=== PATIENT | male | born 1960 | race Caucasian/White ===

== ENCOUNTER → 2017-09-25 | Outpatient (CLI) | payer BC, SELFPAY | PROVIDERS: Family Provider Nurse Practitioner Family; Visit Provider Nurse Practitioner Family | DX: R06.2 Wheezing (principal) | CPT/HCPCS: 94060; 94640 ==

== ENCOUNTER → 2017-12-25 13:44 | Outpatient (CLI) | payer BC, SELFPAY ==
[2017-12-25 14:10] LABS: Alanine Aminotransferase 29 U/L (12-78); Albumin Level 3.8 gm/dL (3.4-5.0); Alkaline Phosphatase 72 U/L (46-116); Aspartate Amino Transferase 12 U/L (15-37); Bilirubin,Direct 0.1 mg/dL (0.0-0.2); Bilirubin,Total 0.4 mg/dL (0.2-1.0); Cholesterol 120 mg/dL (140-200); HDL Cholesterol 40 mg/dL (27-67); LDL Cholesterol 57 mg/dL (0-130); Total Protein,Serum 7.7 gm/dL (6.4-8.2); Triglycerides 116 mg/dL (30-200); VLDL Cholesterol 23 mg/dL (0-40)
== END ==
PROVIDERS: Visit Provider Physician Assistant
DX: Z95.5 Presence of coronary angioplasty implant and graft (principal); I50.22 Chronic systolic (congestive) heart failure; R94.31 Abnormal electrocardiogram [ECG] [EKG]; Z95.810 Presence of automatic (implantable) cardiac defibrillator; I25.10 Atherosclerotic heart disease of native coronary artery without angina pectoris; I11.0 Hypertensive heart disease with heart failure; E78.4 Other hyperlipidemia
CPT/HCPCS: 36415; 80061; 80076

== ENCOUNTER → 2018-02-28 13:46 | Outpatient (CLI) | payer BC, SELFPAY | PROVIDERS: Family Provider Nurse Practitioner Family; PCP Physician Assistant; Visit Provider Internal Medicine | DX: I50.22 Chronic systolic (congestive) heart failure (principal); R94.31 Abnormal electrocardiogram [ECG] [EKG]; I25.10 Atherosclerotic heart disease of native coronary artery without angina pectoris; I11.0 Hypertensive heart disease with heart failure; E78.4 Other hyperlipidemia; E11.9 Type 2 diabetes mellitus without complications; R60.9 Edema, unspecified; R06.00 Dyspnea, unspecified; Z95.5 Presence of coronary angioplasty implant and graft; Z95.810 Presence of automatic (implantable) cardiac defibrillator | CPT/HCPCS: 93306 ==

== ENCOUNTER → 2018-03-07 10:16 | Outpatient (CLI) | payer BC, SELFPAY ==
[2018-03-07 10:50] LABS: Anion Gap 12.7 mEq/L (5-15); Blood Urea Nitrogen 19 mg/dL (7-18); Carbon Dioxide 28 mmol/L (21.0-32.0); Chloride 104 mmol/L (98-107); Creatinine,Serum 0.85 mg/dL (0.70-1.30); Estimated Glomerular Filt Rate 93 ml/min (>60); GFR (African American) 112 ML/MIN (>60); Glucose 179 mg/dL (74-106); Potassium 4.7 mmoL/L (3.5-5.1); Sodium 140 mmol/L (136-145)
== END ==
PROVIDERS: Family Provider Nurse Practitioner Family; PCP Physician Assistant; Visit Provider Internal Medicine
DX: I25.10 Atherosclerotic heart disease of native coronary artery without angina pectoris (principal); I11.9 Hypertensive heart disease without heart failure; R94.31 Abnormal electrocardiogram [ECG] [EKG]; I50.22 Chronic systolic (congestive) heart failure; E78.5 Hyperlipidemia, unspecified; R60.9 Edema, unspecified; R06.00 Dyspnea, unspecified; E11.9 Type 2 diabetes mellitus without complications; Z95.5 Presence of coronary angioplasty implant and graft; Z95.810 Presence of automatic (implantable) cardiac defibrillator
CPT/HCPCS: 36415; 80048

== ENCOUNTER → 2018-03-11 10:55 | Outpatient (CLI) | payer BC, SELFPAY ==
[2018-03-11 11:49] LABS: Anion Gap 13.9 mEq/L (5-15); Blood Urea Nitrogen 28 mg/dL (7-18); Calcium 9.3 mg/dL (8.5-10.1); Carbon Dioxide 25 mmol/L (21.0-32.0); Chloride 104 mmol/L (98-107); Creatinine,Serum 1.01 mg/dL (0.70-1.30); Estimated Glomerular Filt Rate 76 ml/min (>60); GFR (African American) 92 ML/MIN (>60); Glucose 170 mg/dL (74-106); Potassium 4.9 mmoL/L (3.5-5.1); Sodium 138 mmol/L (136-145)
== END ==
PROVIDERS: Visit Provider Physician Assistant
DX: I25.10 Atherosclerotic heart disease of native coronary artery without angina pectoris (principal)
CPT/HCPCS: 36415; 80048

== ENCOUNTER 2018-03-20 15:10 | Outpatient (CLI) | payer BC, SELFPAY ==
[2018-03-20 16:28] LABS: Prothrombin Time 42.2 seconds (9.4-11.8)
[2018-03-20 16:47] LABS: INR 4.27 (0.9-1.1)
[2018-03-21 10:54] LABS: PHA INR Fingerstick 4.2 (0.9-1.1)
== END 2018-03-21 10:56 | disposition home or self-care (01) ==
LOC: ACC 15:11
PROVIDERS: PCP Physician Assistant; Visit Provider Internal Medicine
DX: Z79.01 Long term (current) use of anticoagulants (principal); Z51.81 Encounter for therapeutic drug level monitoring; I82.409 Acute embolism and thrombosis of unspecified deep veins of unspecified lower extremity
CPT/HCPCS: 36415; 85610; G0463

== ENCOUNTER 2018-03-25 13:18 | Outpatient (CLI) | payer BC, SELFPAY ==
[2018-03-25 14:40] LABS: PHA INR Fingerstick 3.6 (0.9-1.1)
== END 2018-03-25 14:42 | disposition home or self-care (01) ==
LOC: ACC 13:20
PROVIDERS: PCP Physician Assistant; Visit Provider Internal Medicine
DX: Z79.01 Long term (current) use of anticoagulants (principal); Z51.81 Encounter for therapeutic drug level monitoring; I82.409 Acute embolism and thrombosis of unspecified deep veins of unspecified lower extremity
CPT/HCPCS: 85610; 99211; G0463

== ENCOUNTER 2018-03-27 15:36 | Outpatient (CLI) | payer BC, SELFPAY ==
[2018-03-27 15:56] LABS: PHA INR Fingerstick 3.8 (0.9-1.1)
== END 2018-03-27 15:59 | disposition home or self-care (01) ==
LOC: ACC 15:36
PROVIDERS: PCP Physician Assistant; Visit Provider Internal Medicine
DX: Z79.01 Long term (current) use of anticoagulants (principal); Z51.81 Encounter for therapeutic drug level monitoring; I82.409 Acute embolism and thrombosis of unspecified deep veins of unspecified lower extremity
CPT/HCPCS: 85610; 99211; G0463

== ENCOUNTER 2018-04-05 15:15 | Outpatient (CLI) | payer BC, SELFPAY ==
[2018-04-05 16:04] LABS: Prothrombin Time 44.8 seconds (9.4-11.8)
[2018-04-05 16:16] LABS: PHA INR Fingerstick 4.2 (0.9-1.1)
[2018-04-05 16:52] LABS: INR 4.55 (0.9-1.1)
== END 2018-04-05 16:19 | disposition home or self-care (01) ==
LOC: ACC 15:16
PROVIDERS: Family Provider Nurse Practitioner Family; PCP Physician Assistant; Visit Provider Internal Medicine
DX: Z79.01 Long term (current) use of anticoagulants (principal); Z51.81 Encounter for therapeutic drug level monitoring; I82.409 Acute embolism and thrombosis of unspecified deep veins of unspecified lower extremity
CPT/HCPCS: 36415; 85610; 99211; G0463

== ENCOUNTER 2018-04-17 15:01 | Outpatient (CLI) | payer BC, SELFPAY ==
[2018-04-17 16:04] LABS: PHA INR Fingerstick 2.6 (0.9-1.1)
== END 2018-04-17 16:14 | disposition home or self-care (01) ==
LOC: ACC 15:03
PROVIDERS: PCP Physician Assistant; Visit Provider Internal Medicine
DX: Z79.01 Long term (current) use of anticoagulants (principal); Z51.81 Encounter for therapeutic drug level monitoring; I82.409 Acute embolism and thrombosis of unspecified deep veins of unspecified lower extremity
CPT/HCPCS: 85610; 99211; G0463

== ENCOUNTER 2018-04-29 14:46 | Outpatient (CLI) | payer BC, SELFPAY | END 2018-04-29 15:41 | disposition home or self-care (01) | LOC: ACC 14:47 | PROVIDERS: PCP Physician Assistant; Visit Provider Internal Medicine | DX: Z79.01 Long term (current) use of anticoagulants (principal); Z51.81 Encounter for therapeutic drug level monitoring | CPT/HCPCS: 85610; 99211; G0463 ==

== ENCOUNTER → 2018-05-03 13:21 | Outpatient (CLI) | payer BC, SELFPAY ==
[2018-05-03 14:19] LABS: Anion Gap 17.2 mEq/L (5-15); Blood Urea Nitrogen 23 mg/dL (7-18); Calcium 9.1 mg/dL (8.5-10.1); Carbon Dioxide 24 mmol/L (21.0-32.0); Chloride 104 mmol/L (98-107); Creatinine,Serum 1.09 mg/dL (0.70-1.30); Estimated Glomerular Filt Rate 70 ml/min (>60); GFR (African American) 84 ML/MIN (>60); Glucose 170 mg/dL (74-106); Potassium 4.2 mmoL/L (3.5-5.1); Sodium 141 mmol/L (136-145)
== END ==
PROVIDERS: Family Provider Nurse Practitioner Family; PCP Physician Assistant; Visit Provider Urology
DX: Z79.01 Long term (current) use of anticoagulants (principal); Z51.81 Encounter for therapeutic drug level monitoring
CPT/HCPCS: 36415; 80048

== ENCOUNTER 2018-05-30 15:03 | Outpatient (CLI) | payer BC, SELFPAY ==
[2018-05-30 15:57] LABS: PHA INR Fingerstick 2.6 (0.9-1.1)
== END 2018-05-30 15:59 | disposition home or self-care (01) ==
LOC: ACC 15:04
PROVIDERS: PCP Physician Assistant; Visit Provider Internal Medicine
DX: Z79.01 Long term (current) use of anticoagulants (principal); Z51.81 Encounter for therapeutic drug level monitoring
CPT/HCPCS: 85610; 99211; G0463

== ENCOUNTER → 2018-08-02 15:47 | Outpatient (CLI) | payer BC, SELFPAY | PROVIDERS: PCP Internal Medicine; Visit Provider Internal Medicine | DX: I82.409 Acute embolism and thrombosis of unspecified deep veins of unspecified lower extremity (principal); I25.5 Ischemic cardiomyopathy ==

== ENCOUNTER → 2018-08-05 14:12 | Outpatient (CLI) | payer BC, SELFPAY ==
[2018-08-05 17:09] LABS: Anion Gap 12.3 mEq/L (5-15); Blood Urea Nitrogen 21 mg/dL (7-18); Calcium 8.9 mg/dL (8.5-10.1); Carbon Dioxide 29 mmol/L (21.0-32.0); Chloride 106 mmol/L (98-107); Creatinine,Serum 0.84 mg/dL (0.70-1.30); Estimated Glomerular Filt Rate 94 ml/min (>60); GFR (African American) 114 ML/MIN (>60); Glucose 181 mg/dL (74-106); Potassium 4.3 mmoL/L (3.5-5.1); Sodium 143 mmol/L (136-145)
== END ==
PROVIDERS: Visit Provider Internal Medicine
DX: E78.5 Hyperlipidemia, unspecified (principal)
CPT/HCPCS: 36415; 80048

== ENCOUNTER 2018-08-06 14:43 | Outpatient (CLI) | payer BC, SELFPAY ==
[2018-08-06 15:36] LABS: PHA INR Fingerstick 3.6 (0.9-1.1)
== END 2018-08-06 15:38 | disposition home or self-care (01) ==
LOC: ACC 14:44
PROVIDERS: PCP Physician Assistant; Visit Provider Internal Medicine
DX: Z51.81 Encounter for therapeutic drug level monitoring (principal); Z79.01 Long term (current) use of anticoagulants; I51.3 Intracardiac thrombosis, not elsewhere classified
CPT/HCPCS: 85610; 99211; G0463

== ENCOUNTER 2018-08-16 12:15 | Outpatient (CLI) | payer BC, SELFPAY ==
[2018-08-16 14:54] LABS: PHA INR Fingerstick 3.1 (0.9-1.1)
== END 2018-08-16 16:02 | disposition home or self-care (01) ==
LOC: ACC 12:15
PROVIDERS: PCP Physician Assistant; Visit Provider Internal Medicine
DX: Z51.81 Encounter for therapeutic drug level monitoring (principal); Z79.01 Long term (current) use of anticoagulants; I51.3 Intracardiac thrombosis, not elsewhere classified
CPT/HCPCS: 85610; 99211; G0463

== ENCOUNTER 2018-09-13 15:46 | Outpatient (CLI) | payer BC, SELFPAY ==
[2018-09-13 16:09] LABS: PHA INR Fingerstick 2.5 (0.9-1.1)
== END 2018-09-13 16:13 | disposition home or self-care (01) ==
LOC: ACC 15:46
PROVIDERS: PCP Physician Assistant; Visit Provider Internal Medicine
DX: Z51.81 Encounter for therapeutic drug level monitoring (principal); Z79.01 Long term (current) use of anticoagulants; I51.3 Intracardiac thrombosis, not elsewhere classified
CPT/HCPCS: 85610; 99211; G0463

== ENCOUNTER 2018-10-14 13:00 | Outpatient (CLI) | payer BC, SELFPAY ==
[2018-10-14 14:14] LABS: Prothrombin Time 89.8 seconds (9.4-11.8)
[2018-10-14 14:47] LABS: PHA INR Fingerstick 5.9 (0.9-1.1)
== END 2018-10-14 15:03 | disposition home or self-care (01) ==
LOC: ACC 13:01
PROVIDERS: PCP Physician Assistant; Visit Provider Internal Medicine
DX: Z51.81 Encounter for therapeutic drug level monitoring (principal); Z79.01 Long term (current) use of anticoagulants; I51.3 Intracardiac thrombosis, not elsewhere classified
CPT/HCPCS: 36415; 85610; 99211; G0463

== ENCOUNTER 2018-10-16 13:42 | Outpatient (CLI) | payer BC, SELFPAY ==
[2018-10-16 14:58] LABS: INR 8.78 (0.9-1.1); Prothrombin Time 84.9 seconds (9.4-11.8)
[2018-10-18 09:12] LABS: PHA INR Fingerstick 5.4 (0.9-1.1)
== END 2018-10-16 17:00 | disposition home or self-care (01) ==
LOC: ACC 13:43
PROVIDERS: PCP Physician Assistant; Visit Provider Internal Medicine
DX: Z51.81 Encounter for therapeutic drug level monitoring (principal); Z79.01 Long term (current) use of anticoagulants; I51.3 Intracardiac thrombosis, not elsewhere classified
CPT/HCPCS: 36415; 85610; 99211; G0463

== ENCOUNTER 2018-10-21 14:28 | Outpatient (CLI) | payer BC, SELFPAY ==
[2018-10-21 15:04] LABS: PHA INR Fingerstick 1.5 (0.9-1.1)
== END 2018-10-21 15:06 | disposition home or self-care (01) ==
LOC: ACC 14:28
PROVIDERS: PCP Physician Assistant; Visit Provider Internal Medicine Cardiovascular Disease
DX: Z51.81 Encounter for therapeutic drug level monitoring (principal); Z79.01 Long term (current) use of anticoagulants; I51.3 Intracardiac thrombosis, not elsewhere classified
CPT/HCPCS: 85610; 99211; G0463

== ENCOUNTER → 2018-10-24 09:41 | Outpatient (CLI) | payer BC, SELFPAY ==
--- NOTE | 2018-10-24 09:41 | CA_ITS ---
PROCEDURE: 2-D M-mode and color Doppler study INDICATIONS FOR THE TEST: Chest pain COPD Heart Murmur Tobacco SmokingEX Palpitations Fatigue Syncope Edema+ Hypertension+Diabetes Mellitus+ Rheumatic Fever SOB TESFAYE+Obesity+Hyperlipidemia+ Family History HD+ Additional History Cardiac stents PATIENT INFORMATION HEIGHT: 67 WEIGHT: 220 GENDER: Male B/P: 125/82 2-D/M-MODE INTERPRETATION: 2-D MEASUREMENTS OBSERVED VALUES IN CMS Right Ventricular Dimension (RVDd) 1.6 Interventricular Septum (Thickness)(IVsd) 0.9 Left Ventricular Internal Dimensions(LVIDd) 4.8 Left Ventricular Posterior Wall (Thickness)(LVPWd) 0.9 Aortic Root 2.9 Aortic Cusp Separation 2.0 Left Atrial Dimensions (LAD) 3.2 2D 1. Technically difficult study because of the patient's factor and poor acoustic windows, Definity contrast was utilized to delineate endocardial subsequent 2. Left atrium is mildly enlarged, left ventricle is normal size, mild concentric left ventricular hypertrophy, visually estimated ejection fraction 40%, there is moderate hypokinesis involving mid to distal septum, anteroapical and apical wall. 3. The right atrium and right ventricle are normal size and contractility. 4.. Aortic valve is minimally thickened and fibrosed. 5. The mitral and tricuspid valve are grossly normal. 6. The pulmonic valve is poorly visualized. 7. No significant pericardial effusion noted. DOPPLER INTERROGATION: Doppler interrogation of the aortic, mitral and tricuspid valvular presence of mild mitral and tricuspid regurgitation, tricuspid regurgitation jet velocity is inadequate for calculation of the right ventricular systolic pressure, grade 1 diastolic dysfunction seen with tissue Doppler evidence of raised left atrial pressure. CONCLUSION: 1. Technically difficult study because of the patient's factor and poor acoustic windows. Definity contrast was placed to delineate endocardial surfaces. 2. Mildly enlarged left atrium, normal left ventricular size, mild concentric left ventricular hypertrophy, visually estimated ejection fraction 40%, with segmental wall motion abnormality described above. 3. Mild mitral and tricuspid regurgitation 4. No significant pericardial effusion noted.
== END ==
PROVIDERS: PCP Physician Assistant; Visit Provider Internal Medicine Cardiovascular Disease
DX: I51.3 Intracardiac thrombosis, not elsewhere classified (principal); I25.10 Atherosclerotic heart disease of native coronary artery without angina pectoris; E11.9 Type 2 diabetes mellitus without complications; E78.5 Hyperlipidemia, unspecified; I11.9 Hypertensive heart disease without heart failure; I50.22 Chronic systolic (congestive) heart failure; R94.31 Abnormal electrocardiogram [ECG] [EKG]; Z95.5 Presence of coronary angioplasty implant and graft; Z95.810 Presence of automatic (implantable) cardiac defibrillator
CPT/HCPCS: 93306

== ENCOUNTER → 2019-01-02 11:43 | Outpatient (CLI) | payer BC, SELFPAY ==
[2019-01-02 14:39] LABS: Prostate Specific Ag, Diagnost 0.38 ng/mL (0.0-4.0)
== END ==
PROVIDERS: Visit Provider Urology
DX: R97.20 Elevated prostate specific antigen [PSA] (principal)
CPT/HCPCS: 36415; 84153

== ENCOUNTER → 2019-05-14 14:54 | Outpatient (CLI) | payer BC, SELFPAY | PROVIDERS: Visit Provider Urology | DX: R05 Cough (principal) | CPT/HCPCS: 87275; 87276 ==

== ENCOUNTER 2019-10-03 14:12 | Emergency (ER) | payer BC, SELFPAY ==
[2019-10-03 14:13] VITALS: BP 135/79; PULSE 89; RESP 18; TEMP 36.7; O2SAT 96; BMI 34.1
--- NOTE | 2019-10-03 14:24 | CT_ITS ---
PROCEDURE: CT ABDOMEN PELVIS W CON CLINICAL INDICATION: abd pain abd pain vomiting and diarrhea COMPARISON: ABDPELWO CT abdomen pelvis wo con from 02/26/2019 TECHNIQUE: IV Contrast: 75ML OPTIRAY 350 Oral Contrast 20ml Gastroview Axial images obtained with sagittal and coronal reformats. All CT scans at the facility use one or more dose reduction, viz: automated exposure control, ma/kV adjustment per patient size (including targeted exams where dose is matched to indication, i.e. head), or iterative reconstruction technique. FINDINGS: Lower thorax: Cardiac size is normal. There is coronary artery calcification. The cardiac pacemaker electrodes noted. The lower lung porter are clear and there is no pleural fluid. ABDOMEN: Liver: No masses or biliary dilatation. Gallbladder: Nondistended. No radio opaque stones. Pancreas: No masses or peripancreatic fluid collections. Spleen: unremarkable Adrenals: unremarkable Kidneys/ureters: The kidneys are normal in size and show symmetrical function both appearing normal. PELVIS: Reproductive: unremarkable, the prostate is mildly enlarged. Bladder: Nondistended. No obvious stones or masses. Appendix: The appendix is normal ABDOMEN & PELVIS: Stomach bowel: Nondistended. No obvious mass or thickening. There is a small sliding hiatal hernia. The small bowel appears normal. There is moderate scattered stool and gas in the ascending and transverse colon and splenic flexure. The lower descending and sigmoid colon are decompressed. Peritoneum: No abnormal fluid collections. No obvious inflammatory changes. No free air. Lymph nodes: No enlarged lymph nodes apparent. Vasculature: There is mild diffuse arteriosclerotic calcification of the infrarenal aorta but there is no aneurysm. Bones: There are mild degenerate changes lower thoracic spine. IMPRESSION: No acute abdominal or pelvic pathology identified Dictated by: Dr. Kennedy Hays MD 10/04/2019 13:[address] Kennedy Hays MD in [place] 10/04/2019 13:35
[2019-10-03 14:39] LABS: Basophils % 0.3 % (0.1-2.0); Eosinophils # 0.3 K/mm3 (0.0-0.4); Eosinophils % 2.1 % (0.1-12.0); Hematocrit 37.6 % (42.0-52.0); Hemoglobin 13.9 g/dL (14.1-18.0); Lymphocytes # 0.9 K/mm3 (0.7-4.5); Mean Corpuscular HGB Conc 36.9 g/dL (31.8-35.4); Mean Corpuscular Hemoglobin 35.3 pg (27.0-31.2); Mean Corpuscular Volume 95.7 fl (80-94); Mean Platelet Volume 7.7 fl (7.4-10.4); Monocytes # 0.7 K/mm3 (0.1-1.0); Monocytes % 5.5 % (1.7-9.3); Neutrophils # 10.2 K/mm3 (1.8-7.8); Platelet Count 197 K/mm3 (142-424); Red Blood Count 3.93 M/mm3 (4.60-6.20)
[2019-10-03 14:41] LABS: MANUAL DIFFERENTIAL MANUAL DIFFERENTIAL (MANUAL DIFF)
[2019-10-03 14:47] LABS: Adenovirus F 40/41, stool Not Detected (NotDetected); Astrovirus Not Detected (NotDetected); Campylobacter Not Detected (NotDetected); Clostridium Difficile A/B, PCR Not Detected (NotDetected); Cryptosporidium Not Detected (NotDetected); Cyclospora Cayetanesis Not Detected (NotDetected); Entamoeba histolytica Not Detected (NotDetected); Enteroaggregative E coli Not Detected (NotDetected); Enteropathogenic E coli Not Detected (NotDetected); Enterotoxigenic E coli Not Detected (NotDetected); Giardia lamblia Not Detected (NotDetected); Microscopic, Urine URINE MICROSCOPIC (MICROSCOPIC); Plesimonas Shigalloides, PCR Not Detected (NotDetected); Rotavirus A Not Detected (NotDetected); Salmonella, PCR Not Detected (NotDetected); Sapovirus Not Detected (NotDetected); Shiga-like toxin E coli Not Detected (NotDetected); Shigella Enterovasive E coli Not Detected (NotDetected); Vibrio Cholerae Not Detected (NotDetected); Vibrio, PCR Not Detected (NotDetected); Yersinia Entercolitica, PCR Not Detected (NotDetected)
--- NOTE | 2019-10-03 14:47 | PC.NURSE ---
URINE AND STOOL SENT TO THE LAB
[2019-10-03 14:49] LABS: Appearance,Urine CLEAR (Clear); Bilirubin,Urine Negative (Negative); Blood, Urine Negative (Negative); Color,Urine YELLOW (Yellow); Glucose,Urine (UA) 2+ (Negative); Ketones,Urine TRACE (Negative); Leukocyte Esterase,Urine Negative (Negative); Nitrate,Urine Negative (Negative); Protein,Urine TRACE (Negative); Specific Gravity, Urine 1.025 (1.005-1.030); Urobilinogen,Urine 0.2 EU/dl (0.2)
[2019-10-03 14:53] LABS: Alanine Aminotransferase 28 U/L (12-78); Albumin Level 3.9 gm/dL (3.4-5.0); Alkaline Phosphatase 70 U/L (46-116); Amylase 38 U/L (25-115); Aspartate Amino Transferase 16 U/L (15-37); Bilirubin,Total 0.9 mg/dL (0.2-1.0); Blood Urea Nitrogen 26 mg/dL (7-18); Calcium 8.6 mg/dL (8.5-10.1); Carbon Dioxide 24 mmol/L (21.0-32.0); Chloride 104 mmol/L (98-107); Creatinine Clearance Estimated 125 mL/min (50-200); Estimated Glomerular Filt Rate 87 ml/min (>60); GFR (African American) 105 ML/MIN (>60); Globulin 3.8 gm/dl (1.3-3.2); Glucose 211 mg/dL (74-106); Sodium 141 mmol/L (136-145); Total Protein,Serum 7.7 gm/dL (6.4-8.2)
[2019-10-03 14:55] LABS: Eosinophils % 3 % (0-3); Lymphocytes % 8 % (10-50); Monocytes % 5 % (2-9); Neutrophils % 84 % (42-76); Platelet Estimate Normal; RBC Morphology Normal; Total Cells Counted 100
[2019-10-03 14:59] LABS: Squamous Epithelial Cell,Urine Occasional #/hpf (0-5); WBC,Urine Occasional #/hpf (0-3)
[2019-10-03 15:00] LABS: Amorphous Sediment,Urine 1+ /lpf
[2019-10-03 15:36] LABS: Lipase 47 u/L (73-393)
--- NOTE | 2019-10-03 15:44 | PC.NURSE ---
Pt to rad.
--- NOTE | 2019-10-03 15:49 | HMH.EDABDPAI ---
ED Disposition Clinical Impression: Gastroenteritis due to norovirus Disposition: Home, Self-Care Condition on Discharge: Fair Instructions: DI for Norovirus Infection Additional Instructions: Follow-up with your primary care provider on Sunday for reevaluation if not better. Return to the emergency department immediately if symptoms are worse. Prescriptions: Ondansetron [Zofran 4mg ODT] 4 mg PO Q4H PRN #10 tab.rapdis PRN Reason: Nausea Prescription Printed Referrals: Riley Bland MD [Primary Care Provider] - Time of Disposition: 17:22 - Critical Care Critical Care Time: No Attestation: On 10/03/19, the high probability of a clinically significant, sudden or life threatening deterioration of the following system(s) required my full and direct attention, intervention and personal management. The time I documented below is in addition to time spent performing reported procedures but includes the following listed in this critical care notation. Medical Decision Making - Medical Records Medical records reviewed: Yes: I reviewed the patient's medical records. - Gaurav Inquiry Pt receiving controlled substance: No Vital Signs: 10/03/19 14:13 Temperature 98.1 F Temperature Source Oral Pulse Rate [Right] 89 Respiratory Rate 18 Blood Pressure [Right Arm] 135/79 Blood Pressure Mean [Right Arm] 97 02 Sat by Pulse Oximetry 96 - Lab Data Lab results reviewed: Yes: I reviewed the patient's lab results. Lab Results 10/03/19 14:25: WBC 12.0 H, RBC 3.93 L, Hgb 13.9 L, Hct 37.6 L, MCV 95.7 H, MCH 35.3 H, MCHC 36.9 H, RDW 15.0, Plt Count 197, MPV 7.7, Neut % (Auto) 85.0 H, Lymph % (Auto) 7.0 L, [place] % (Auto) 5.5, Eos % (Auto) 2.1, Baso % (Auto) 0.3, Neut # (Auto) 10.2 H, Lymph # (Auto) 0.9, [place] # (Auto) 0.7, Eos # (Auto) 0.3, Baso # (Auto) 0.0, Total Counted 100, Neutrophils % (Manual) 84 H, Lymphocytes % (Manual) 8 L, Monocytes % (Manual) 5, Eosinophils % (Manual) 3, Platelet Estimate Normal, RBC Morphology Normal 12/27/19 14:25: Sodium 141, Potassium 4.0, Chloride 104, Carbon Dioxide 24, Anion Gap 17.0 H, BUN 26 H, Creatinine 0.90, Estimated Creat Clear 125, Estimated GFR 87, Est GFR ( Amer) 105, Glucose 211 H, Calcium 8.6, Total Bilirubin 0.9, AST 16, ALT 28, Alkaline Phosphatase 70, Total Protein 7.7, Albumin 3.9, Globulin 3.8 H, Albumin/Globulin Ratio 1.0 L, Amylase 38 10/03/19 14:25: Lipase 47 L 10/03/19 14:42: Urine Color Yellow, Urine Appearance Clear, Urine pH 6.0, Ur Specific [place] 1.025, Urine Protein Trace, Urine Glucose (UA) 2+, Urine Ketones Trace, Urine Blood Negative, Urine Nitrate Negative, Urine Bilirubin Negative, Urine Urobilinogen 0.2, Ur Leukocyte Esterase Negative, Urine RBC None, Urine WBC Occasional, Ur Squamous Epith Cells Occasional, Amorphous Sediment 1+, Urine Bacteria None 10/03/19 14:42: Stl Aeromonas (PCR) Not detected, Stl C. cayetanensis PCR Not detected, Stool Rotavirus (PCR) Not detected, Stl Adenov F 40/41 PCR Not detected, Stool Astrovirus (PCR) Not detected, Stool Campylobacter PCR Not detected, Stl C.difficile Tox PCR Not detected, Stool Cryptosporidium PCR Not detected, Stl E.coli Shiga Tox PCR Not detected, Stool E coli O157 PCR Not detected, Stl Enterotoxigenic E PCR Not detected, Stool EPEC (PCR) Not detected, Stool EAEC (PCR) Not detected, Stl E. histolytica PCR Not detected, Stool Giardia Lamblia PCR Not detected, Stool Salmonella PCR Not detected, Stool Sapovirus (PCR) Not detected, Stl P. shigelloides PCR Not detected, Stl Shigella/EIEC PCR Not detected, St Y.enterocolitica PCR Not detected, Stool Vibrio (PCR) Not detected, Stl Vibrio cholerae PCR Not detected, Stl Norovirus GI/GII PCR Detected A Result diagrams: 10/03/19 14:25 10/03/19 14:25 Orders (Tests/Meds): ED MEDICATIONS Discontinued Medications Generic Name Dose Route Start Last Admin Trade Name Freq PRN Reason Stop Dose Admin Sodium Chloride 1,000 mls @ 999 mls/hr 10/03/19 14:30 10/03/19 1
--- NOTE | 2019-10-03 16:05 | PC.NURSE ---
Pt returned from rad.
[2019-10-03 17:11] LABS: Norovirus Detected (NotDetected)
[2019-10-03 17:26] VITALS: BP 120/78; PULSE 78; RESP 18; TEMP 36.7; O2SAT 98
== END 2019-10-03 17:28 | disposition home or self-care (01) ==
PROVIDERS: Emergency Provider Emergency Medicine; PCP Emergency Medicine
DX: A08.11 Acute gastroenteropathy due to Norwalk agent (principal); E11.9 Type 2 diabetes mellitus without complications; K21.9 Gastro-esophageal reflux disease without esophagitis; E78.5 Hyperlipidemia, unspecified; I25.10 Atherosclerotic heart disease of native coronary artery without angina pectoris; I10 Essential (primary) hypertension; Z95.0 Presence of cardiac pacemaker; Z79.899 Other long term (current) drug therapy
CPT/HCPCS: 74177; 80053; 81001; 82150; 83690; 85007; 85025; 87506; 96365; 99283; Q9967

== ENCOUNTER 2020-04-18 17:13 | Emergency (ER) | payer BC, SELFPAY ==
[2020-04-18 17:13] VITALS: BP 187/89; PULSE 83; RESP 19; TEMP 36.6; O2SAT 100; BMI 35.5
--- NOTE | 2020-04-18 17:24 | XR_ITS ---
PROCEDURE: XR RIBS RT MIN 3V W CXR1V CLINICAL INDICATION: FALL Pain following injury, right-sided rib pain COMPARISON: Chest from 05/10/2019 Chest from 05/12/2019 XR CHEST 2V from 10/26/2019 FINDINGS: Multiple views of the right ribs show no obvious fracture. No lytic or blastic change. Consider follow-up in 7-[address] with 3D reformats if pain persists Frontal view of the chest shows no acute finding. Bipolar pacemaker is present from left subclavian approach IMPRESSION: No acute findings. Dictated by: William Overton MD 04/19/2020 07:41 Electronically signed by William Overton MD in [place] 04/19/2020 07:41
--- NOTE | 2020-04-18 17:52 | HMH.EDUTC ---
[facility] [place] Disposition Clinical Impression: Contusion of rib on right side Qualifiers: Encounter type: initial encounter Qualified Code(s): S20.211A - Contusion of right front wall of thorax, initial encounter Disposition: Home, Self-Care Condition on Discharge: Good Instructions: DI for Rib Contusion, Ibuprofen, Acetaminophen (Alternative Therapy) Additional Instructions: *Ibuprofen yasmin 6 hours with meal as needed for pain/inflammation if your doctor has told you that you can take it *Not additional anti-inflammatory like motrin, aleve, advil with the above amount of ibuprofen. You can still take Tylenol every 4 hours as needed if you need something else for pain *Ice 20 minutes every 2 hours for the first 48 hours after the initial injury followed by moist heat every 20 minutes 3-4 times a day to affected area Over the counter Lidocaine patches applied to the area may help with pain and discomfort Also muscle rubs like biofreeze may help with pain and discomfort, Use a small pillow held on the area when you cough or sneeze may help with pain *Keep this area active, no movement leads to more stiffness, However take it easy and avoid heavy lifting pushing or pulling *Follow up with you family doctor if no improvement for further treatment Straight to ER if any life threatening symptoms Referrals: Riley Bland MD [Primary Care Provider] - As needed Time of Disposition: 18:05 Medical Decision Making - Gaurav Inquiry Pt receiving controlled substance: No Gaurav was queried for this patient: No Vital Signs: 04/18/20 17:13 Temperature 97.8 F Temperature Source Oral Pulse Rate [Radial] 83 Respiratory Rate 19 Blood Pressure [Right Arm] 187/89 H Blood Pressure Mean [Right Arm] 121 Blood Pressure Source [Right Arm] Automatic Cuff Blood Pressure Position [Right Arm] Sitting 02 Sat by Pulse Oximetry 100 Oxygen Delivery Method Room Air Orders (Tests/Meds): ORDERS Category Date Time Status XR ribs RT min 3V w CXR1V Stat Exams 04/18/20 17:24 Taken - Radiology Data #1 Image(s): Chest, Other (ribs (right)) Image Reviewed: Yes I reviewed the patient's radiology image w/the ED provider Preliminary Findings: Normal/NAD, No Fracture Seen [facility] [place] HPI - General Stated complaint: AO [id number] @2200 fell & injured ribs Time Seen by Provider: 04/18/20 17:52 Mode of Arrival: Ambulatory Source of Information: Patient Limitations: No Limitations Description of Symptoms (Recalled from Triage Doc. by RN): fell in shower 2 days ago, right rib pain HEENT Symptoms (Recalled from RN notes): No Resp Symptoms (Recalled from RN notes): No Skin Symptoms (Recalled from RN notes): No MS Symptoms (Recalled from RN notes): Yes Functional Status (Recalled from RN notes): wnl - History of Present Illness Provider Complaint: Patient states that he was in the shower about 2 days ago when he slipped and fell and landed on his right side on the side of the bathtub States that ever since he has been having pain in his right ribs when he takes a deep breath, coughs or sneezes States that he wasnt sure if he may have broke a rib or not so he come in to get checked Denies any other injury - Related Data Home Medications Medication Instructions Recorded Confirmed aspirin 81 mg tablet,delayed 81 mg PO DAILY 02/04/19 03/02/20 release Furosemide [Furosemide 40MG tAB] 40 mg PO DAILY 02/26/19 03/02/20 Atorvastatin Calcium [Lipitor 40mg 40 mg PO DAILY 05/12/19 03/02/20 Tablet] Cetirizine HCl 10 mg PO DAILY 05/12/19 03/02/20 Previous Rx's Medication Instructions Recorded fluticasone furoate 100 1 inh INHALATION DAILY #60 each 05/16/19 mcg-vilanterol 25 mcg/dose inhalation powder carvedilol 25 mg tablet 25 mg PO BID #180 tab 06/20/19 spironolactone 100 mg tablet 100 mg PO QAM #90 tab 09/01/19 losartan 50 mg tablet 50 mg PO DAILY #30 tab 11/18/19 ondansetron HCl 8 mg tablet 8 mg PO Q12H #30 tab 12/31/19 nitroglycerin 400 mcg/spr
[2020-04-18 18:08] VITALS: BP 187/89; PULSE 83; RESP 19; TEMP 36.6; O2SAT 100
== END 2020-04-18 18:09 | disposition home or self-care (01) ==
PROVIDERS: Emergency Provider Nurse Practitioner; PCP Emergency Medicine
DX: S20.211A Contusion of right front wall of thorax, initial encounter (principal); W18.2XXA Fall in (into) shower or empty bathtub, initial encounter; Y92.012 Bathroom of single-family (private) house as the place of occurrence of the external cause; I25.10 Atherosclerotic heart disease of native coronary artery without angina pectoris; E11.9 Type 2 diabetes mellitus without complications; K21.9 Gastro-esophageal reflux disease without esophagitis; I10 Essential (primary) hypertension; E78.5 Hyperlipidemia, unspecified; Z95.0 Presence of cardiac pacemaker; Z88.8 Allergy status to other drugs, medicaments and biological substances
CPT/HCPCS: 71101; 99201

== ENCOUNTER → 2020-05-24 08:16 | Outpatient (CLI) | payer BC, SELFPAY ==
--- NOTE | 2020-05-24 10:05 | XR_ITS ---
PROCEDURE: XR RIBS RT 2V CLINICAL INDICATION: Rib injury Posttraumatic pain COMPARISON: CR XR RIBS RT MIN 3V W CXR1V from 04/18/[address] CHEST WO CON from 05/24/2020 FINDINGS: There is a minimally offset fracture involving the lateral aspect of the right 7th rib with some underlying pleural thickening. Frontal view of the chest shows no evidence of pneumothorax. Bipolar pacemaker is present from left subclavian approach with mild cardiomegaly. IMPRESSION: Healing fracture right 7th rib Dictated by: William Overton MD 05/24/2020 13:18 William Overton MD in [place] 05/24/2020 13:18
--- NOTE | 2020-05-24 10:05 | CT_ITS ---
PROCEDURE: CT CHEST WO CON CLINICAL INDICATION: right side rib pain after fall Right-sided chest and rib pain after a fall COMPARISON: CT CT ABDOMEN PELVIS W CON from 05/24/2020 TECHNIQUE: Axial images obtained with sagittal and coronal reformats. All CT scans at the facility use one or more dose reduction, viz: automated exposure control, ma/kV adjustment per patient size (including targeted exams where dose is matched to indication, i.e. head), or iterative reconstruction technique. FINDINGS: Pacemaker artifact is present. No mediastinal or hilar mass or adenopathy. There are few small calcified mediastinal lymph nodes. Coronary artery calcification and/or stents noted. There is normal heart size without obvious pericardial effusion. There is some mild paraseptal emphysematous changes in the right apex. There is mild bronchial thickening. There is evidence of old granulomatous disease. No lobar consolidation or collapse is evident. There is a healing nondisplaced right 7th rib fracture laterally. No the rib fractures are apparent. There is no evidence of pneumothorax or pleural effusion. IMPRESSION: Nondisplaced healing right 7th rib fracture laterally Dictated by: William Overton MD 05/25/2020 10:25 William Overton MD in [place] 05/25/2020 10:25
--- NOTE | 2020-05-24 10:05 | CT_ITS ---
PROCEDURE: CT ABDOMEN PELVIS W CON CLINICAL INDICATION: fall Right-sided pain following injury COMPARISON: CT CT ABDOMEN PELVIS W CON from 10/03/[address] CHEST WO CON from 05/24/2020 TECHNIQUE: IV Contrast: 75ML OPTIRAY 350 Oral Contrast None Axial images obtained with sagittal and coronal reformats. All CT scans at the facility use one or more dose reduction, viz: automated exposure control, ma/kV adjustment per patient size (including targeted exams where dose is matched to indication, i.e. head), or iterative reconstruction technique. FINDINGS: There is a nondisplaced healing right 7th rib fracture. The liver, spleen, adrenal glands, pancreas, and kidneys have an unremarkable appearance. Unremarkable appearing gallbladder. No renal or ureteral calculi. No hydronephrosis. Unremarkable appearing appendix. Prostate is enlarged at 5.7 cm. There are few scattered colonic diverticula but no evidence of diverticulitis. Incidental note made of gynecomastia IMPRESSION: Healing right 7th rib fracture. No acute abdominal or pelvic findings. Enlarged prostate Dictated by: William Overton MD 05/25/2020 10:29 William Overton MD in [place] 05/25/2020 10:29
[2020-05-24 10:56] LABS: Alanine Aminotransferase 25 U/L (12-78); Albumin Level 4.1 g/dl (3.5-5.0); Albumin/Globulin Ratio 1.5 (1.1-1.8); Alkaline Phosphatase 109 U/L (38-126); Anion Gap 14.4 mEq/L (5-15); Aspartate Amino Transferase 26 U/L (17-59); Bilirubin,Total 0.7 mg/dl (0.2-1.3); Blood Urea Nitrogen 15 mg/dl (9-20); Calcium 9.3 mg/dl (8.4-10.2); Carbon Dioxide 28 mmol/L (22.0-30.0); Chloride 103 mmol/L (98-107); Estimated Glomerular Filt Rate 86 ml/min (>60); GFR (African American) 105 ML/MIN (>60); Globulin 2.8 g/dL (1.3-3.2); Glucose 277 mg/dl (74-100); Potassium 4.4 mmoL/L (3.5-5.1); Sodium 141 mmol/L (136-145); Total Protein,Serum 6.9 g/dl (6.3-8.2)
[2020-05-24 14:05] LABS: Alanine Aminotransferase 25 U/L (12-78); Alkaline Phosphatase 114 U/L (38-126); Aspartate Amino Transferase 26 U/L (17-59); Bilirubin,Direct 0.2 mg/dl (0.0-0.4); Bilirubin,Indirect 0.4 mg/dL (0.0-0.9); Bilirubin,Total 0.6 mg/dl (0.2-1.3); Bilirubin,Unconjugated 0.5 mg/dL (0.0-1.1); Chol/HDL Ratio 3.2 (1-3.5); Cholesterol 148 mg/dl (140-200); HDL Cholesterol 46 mg/dl (40-60); Total Protein,Serum 6.9 g/dl (6.3-8.2); Triglycerides 118 mg/dl (30-150); VLDL Cholesterol 24 mg/dL (0-40)
[2020-05-24 14:16] LABS: Direct LDL Cholesterol 90.99 mg/dL (100-129)
== END ==
PROVIDERS: Physician Assistant; PCP Emergency Medicine; Visit Provider Emergency Medicine
DX: R10.9 Unspecified abdominal pain (principal); R10.11 Right upper quadrant pain; R07.81 Pleurodynia; E78.5 Hyperlipidemia, unspecified; I11.9 Hypertensive heart disease without heart failure; I25.10 Atherosclerotic heart disease of native coronary artery without angina pectoris; I50.22 Chronic systolic (congestive) heart failure; Z95.5 Presence of coronary angioplasty implant and graft; Z95.810 Presence of automatic (implantable) cardiac defibrillator; W19.XXXA Unspecified fall, initial encounter
CPT/HCPCS: 36415; 71100; 71250; 74177; 80053; 80061; 80076; Q9967

== ENCOUNTER → 2020-05-26 15:10 | Outpatient (CLI) | payer BC, SELFPAY ==
[2020-05-26 15:54] LABS: Hemoglobin A1C 8.4 % (4.0-6.0)
[2020-05-26 16:23] LABS: Prostate Specific Ag Screen 0.4 ng/ml (0.0-4.0)
== END ==
PROVIDERS: Visit Provider Emergency Medicine
DX: Z12.5 Encounter for screening for malignant neoplasm of prostate (principal); R73.09 Other abnormal glucose
CPT/HCPCS: 83036; G0103

== ENCOUNTER 2020-11-03 17:51 | Emergency (ER) | payer BC, SELFPAY ==
[2020-11-03 17:52] VITALS: BP 149/86; PULSE 68; RESP 19; TEMP 36.9; O2SAT 96
--- NOTE | 2020-11-03 18:52 | HMH.EDUTC ---
[facility] [place] Dis[place] Clinical Impression: Viral syndrome Disposition: Home, Self-Care Condition on Discharge: Good Instructions: DI for COVID-19 (Suspected or Confirmed ), Coronavirus Disease 2019, Preventing the Spread of Coronavirus Discharge Instructions Additional Instructions: *Monitor Temp, Over the counter Motrin or Tylenol as directed/as needed Tylenol every 4 hours and Motrin every 6 hours (as long as your family doctor has told you that you can take it) for fever or pain. and straight to ER if unable to lower temp less than 101.0 after medication given *Warm salt water gargles may help to soothe the throat *Throat Lozenges *Warm fluids like tea with honey may help to soothe the throat *Sleep elevated *Humidifier/Vaporizer Follow up IMMEDIATELY for new or worsening symptoms or no Noticeable improvement over the next 48-72 hours. 911 for difficulty breathing or swallowing You were tested for today for COVID19 your test result should be back in the next 24-48 hours, you may call to the [facility] to see if your test results are back in the next 48 hours [phone] [facility] hours are 9am-9pm You was given a handout with instructions for Self Quarantine and Self isolation for while you wait on test results and what to do if they are positive If you are positive the Health Dept will be contacting you also Referrals: Riley Bland MD [Primary Care Provider] - As needed Forms: Work/School Release Time of Disposition: 19:03 Medical Decision Making - Gaurav Inquiry Pt receiving controlled substance: No Gaurav was queried for this patient: No Vital Signs: 11/03/20 17:52 Temperature 98.4 F Temperature Source Oral Pulse Rate [Left Radial] 68 Respiratory Rate 19 Blood Pressure [Right Arm] 149/86 H Blood Pressure Mean [Right Arm] 107 Blood Pressure Source [Right Arm] Automatic Cuff Blood Pressure Position [Right Arm] Sitting 02 Sat by Pulse Oximetry 96 Oxygen Delivery Method Room Air - Lab Data Lab results reviewed: Yes: I reviewed the patient's lab results. Lab Results 11/03/20 18:39: Influenza Type A Ag Negative, Influenza Type B Ag Negative 11/03/20 18:39: Strep Scn Rapid Clinic Negative Orders (Tests/Meds): ORDERS Category Date Time Status Covid-19 Nasal PCR ([facility]) Routine Lab 11/03/20 18:39 Ordered Strep Screen Confirmation Stat Micro 11/03/20 18:39 Received [facility] [place] HPI - General Stated complaint: Cough, Sore Throat Muscle Pain Time Seen by Provider: 11/03/20 18:53 Mode of Arrival: Ambulatory Source of Information: Patient Limitations: No Limitations Description of Symptoms (Recalled from Triage Doc. by RN): c/o sore throat, cough and body aches for 2 days HEENT Symptoms (Recalled from RN notes): Yes Resp Symptoms (Recalled from RN notes): Yes (cough) Skin Symptoms (Recalled from RN notes): No MS Symptoms (Recalled from RN notes): No Functional Status (Recalled from RN notes): wnl - History of Present Illness Provider Complaint: Patient states that he hasnt been feeling well for a couple of days States that he has been having sore throat, cough, and body aches for the last couple of days States that he hasnt been around anyone with COVID that he is aware of States that this evening he was still feeling bad so he came in to get tested - Related Data Home Medications Medication Instructions Recorded Confirmed aspirin 81 mg tablet,delayed 81 mg PO DAILY 02/04/19 07/09/20 release Furosemide [Furosemide 40MG tAB*] 40 mg PO DAILY 02/26/19 07/09/20 Cetirizine HCl 10 mg PO DAILY 05/12/19 07/09/20 Previous Rx's Medication Instructions Recorded fluticasone furoate 100 1 inh INHALATION DAILY #60 each 05/16/19 mcg-vilanterol 25 mcg/dose inhalation powder spironolactone 100 mg tablet 100 mg PO QAM #90 tab 09/01/19 ondansetron HCl 8 mg tablet 8 mg PO Q12H #30 tab 12/31/19 nitroglycerin 400 mcg/spray 1 spray TL Q5M PRN #4.9 g 01/08/20 translingual polyethylene glycol 3350 17 17 g
[2020-11-03 18:56] LABS: UTC Influenza A Antigen Negative (Negative); UTC Influenza B Antigen Negative (Negative); UTC Strep Screen (Rapid) Negative (Negative)
[2020-11-03 19:07] VITALS: BP 149/86; PULSE 68; RESP 19; TEMP 36.9; O2SAT 96
--- NOTE | 2020-11-05 10:38 | PC.NURSE ---
patient notified of positive covid results
== END 2020-11-03 19:08 | disposition home or self-care (01) ==
PROVIDERS: Emergency Provider Nurse Practitioner; PCP Emergency Medicine
DX: U07.1 COVID-19 (principal); I25.10 Atherosclerotic heart disease of native coronary artery without angina pectoris; K21.9 Gastro-esophageal reflux disease without esophagitis; E78.5 Hyperlipidemia, unspecified; I10 Essential (primary) hypertension; Z95.0 Presence of cardiac pacemaker; Z79.899 Other long term (current) drug therapy
CPT/HCPCS: 87804; 87880; 99202; G0463; U0003

== ENCOUNTER → 2020-11-30 14:34 | Outpatient (CLI) | payer BC, SELFPAY ==
--- NOTE | 2020-11-30 14:41 | CA_ITS ---
APPROVED REPORT EXAM: Comprehensive 2D, Doppler, and color-flow Echocardiogram Sole Skiver: Hayley Brizuela RVT Ht: 5 ft 7 in Wt: 221lbs BSA: 2.11 BP: 142/88 mmHg Indications: SOA,CAD,CHF,AICD,HX COVID,DM,HTN,HLD TDS-PT BODY HABITUS 2D Dimensions LVOT 2.23 cm (M/F) 1.5-2.5 M-Mode Dimensions RVDd 3.40 cm (0.9-2.6) LA Diam 3.81 cm (1.9-4.0) LVDd 5.23 cm (3.5-5.7) Ao Diam 3.09 cm (2.0-3.7) LVDs 3.62 cm (3.5-5.7) IVSd 0.67 cm (0.6-1.1) PWd 1.30 cm (0.6-1.1) EF (Teich) 57.90% FS 30.80% EDV (Teich) 131.20 mL ESV (Teich) 55.20 mL LV Diastology E Decel Time 167.00 (160-240 msec) E/A Ratio 0.8 MED E' 5.30 (< 7 cm/sec) E'/MED E' Ratio 16.70 (>14) LAT E' 6.20 (<10 cm/sec) E/LAT E' Ratio 14.27 (>14) Mitral Valve MV E Max Dannie. 88.00 (40-130 cm/s) MV A Velocity 104.00 (40-130 cm/s) E/A Ratio 0.85 MV Decel. Time 167.00 (160-240 ms) MV PHT 49.00 ms Pulmonary Valve PV Peak Velocity 99.00 (50-150 cm/s) Left Ventricle Technically difficult study because of the patient factors and poor acoustic windows, left atrium is mildly enlarged, left ventricle is normal size, mild concentric left ventricular hypertrophy, visually estimated ejection fraction approximately 35%, there is marked hypokinesis involving mid to distal septum, anterior, anterior apical wall. Grade 1 diastolic dysfunction seen without tissue Doppler evidence of raise left atrial pressure. Right Ventricle Right atrium and right ventricle are mildly enlarged with normal contractility, there is an AICD lead seen in the right ventricle. Aortic Valve Aortic valve is minimally thickened and fibrosed, there is no aortic stenosis or aortic insufficiency. Mitral Valve Mitral valve leaflets are minimally thickened, there is mild mitral regurgitation. Tricuspid Valve Tricuspid valve is grossly normal, there is trace tricuspid regurgitation, tricuspid regurgitation jet velocity is inadequate for calculation of the right ventricular systolic pressure. Pulmonic Valve Pulmonic valve is poorly visualized. Great Vessels Aortic root is normal size. Pericardium No significant pericardial effusion noted. Conclusion 1. Mild biatrial enlargement, normal left ventricular size, mild concentric left ventricular hypertrophy, visually estimated ejection fraction 35% with segmental wall motion abnormality described above, endocardial surfaces are very poorly visualized. Grade 1 diastolic dysfunction seen without tissue Doppler evidence of raise left atrial pressure. 2. Mildly enlarged right ventricle with normal contractility. 3. Mild mitral and tricuspid regurgitation. 4. No significant pericardial effusion noted. Electronically signed by : José Miguel Muhammad, 11/30/2020 21:33:33
== END ==
PROVIDERS: PCP Emergency Medicine; Visit Provider Nurse Practitioner Family
DX: I25.10 Atherosclerotic heart disease of native coronary artery without angina pectoris (principal); I50.22 Chronic systolic (congestive) heart failure; E78.2 Mixed hyperlipidemia; I11.0 Hypertensive heart disease with heart failure; Z95.5 Presence of coronary angioplasty implant and graft; Z95.810 Presence of automatic (implantable) cardiac defibrillator
CPT/HCPCS: 93306

== ENCOUNTER → 2021-02-21 13:19 | Outpatient (CLI) | payer BC, SELFPAY ==
--- NOTE | 2021-02-21 13:34 | CA_ITS ---
APPROVED REPORT EXAM: Comprehensive 2D, Doppler, and color-flow Echocardiogram First Assist: Hayley Brizuela RVT Ht: 5 ft 7 in Wt: 221lbs BSA: 2.11 BP: 142/88 mmHg Indications: LV DYS,CM,AICD,CAD,STENT,GERD,DM,HTN,HLD TDS-BODY HABITUS 2D Dimensions LVOT 2.13 cm (M/F) 1.5-2.5 LA Volume 28.80 mL LA Volume Index 13.64 mL/m2 (M/F) 16-34 M-Mode Dimensions RVDd 3.13 cm (0.9-2.6) LA Diam 3.56 cm (1.9-4.0) LVDd 6.58 cm (3.5-5.7) Ao Diam 3.02 cm (2.0-3.7) LVDs 5.35 cm (3.5-5.7) IVSd 0.71 cm (0.6-1.1) PWd 0.99 cm (0.6-1.1) EF (Teich) 37.70% FS 18.70% EDV (Teich) 222.10 mL ESV (Teich) 138.30 mL LV Diastology E Decel Time 227.00 (160-240 msec) E/A Ratio 0.7 MED E' 6.80 (< 7 cm/sec) E'/MED E' Ratio 10.79 (>14) LAT E' 5.80 (<10 cm/sec) E/LAT E' Ratio 12.66 (>14) Aortic Valve AO Peak GR. 3.70 mmHg Mitral Valve MV E Max Dannie. 73.00 (40-130 cm/s) MV A Velocity 112.00 (40-130 cm/s) E/A Ratio 0.65 MV Decel. Time 227.00 (160-240 ms) MV PHT 66.00 ms Pulmonary Valve PV Peak Velocity 77.00 (50-150 cm/s) Tricuspid Valve TR P. Velocity 192.00 cm/s RAP Estimate 10.00 mmHg RVSP 24.80 mmHg Left Ventricle Technically difficult study because of the patient fact in poor acoustic windows, repeat study with Definity contrast is recommended. Left atrium is mildly enlarged, left ventricle is mildly dilated, there is reduced left ventricular systolic function, visually estimated ejection fraction approximately 40%, there is marked hypokinesis involving mid to distal septum and anterior apical wall. Diastolic parameters are inconclusive. Right Ventricle Right atrium and right ventricle are normal size and contractility, there is pacemaker leads in right ventricle. Aortic Valve Aortic valve is minimally thickened and fibrosed, there is no aortic stenosis or aortic insufficiency. Mitral Valve Mitral valve is grossly normal, there is trace mitral regurgitation. Tricuspid Valve Tricuspid grossly normal, there is trace tricuspid regurgitation, tricuspid regurgitation jet velocity is inadequate for calculation of the right ventricular systolic pressure. Pulmonic Valve Pulmonic valve is poorly visualized. Great Vessels Aortic root is normal size. Pericardium No significant pericardial effusion noted. Conclusion 1. Technically difficult study as described above, repeat study with Definity contrast is recommended. Mildly dilated left ventricle, reduced left ventricular systolic function, visually estimated ejection fraction 40% with multiple segmental wall motion abnormality described above. Diastolic parameters are inconclusive. 2. Trace mitral and tricuspid regurgitation. 3. No significant pericardial effusion noted. Electronically signed by : José Miguel Muhammad, 02/21/2021 19:28:10
== END ==
PROVIDERS: PCP Emergency Medicine; Visit Provider Physician Assistant
DX: I50.1 Left ventricular failure, unspecified (principal)
CPT/HCPCS: 93306

== ENCOUNTER → 2021-05-31 15:51 | Outpatient (CLI) | payer BC, SELFPAY ==
[2021-05-31 17:12] LABS: Alanine Aminotransferase 28 U/L (12-78); Albumin Level 4.2 g/dl (3.5-5.0); Alkaline Phosphatase 81 U/L (38-126); Aspartate Amino Transferase 24 U/L (17-59); Bilirubin,Direct 0.4 mg/dl (0.0-0.4); Bilirubin,Indirect 0.5 mg/dL (0.0-0.9); Bilirubin,Total 0.9 mg/dl (0.2-1.3); Bilirubin,Unconjugated 0.5 mg/dL (0.0-1.1); Chol/HDL Ratio 3.3 (1-3.5); Cholesterol 145 mg/dl (140-200); HDL Cholesterol 44 mg/dl (40-60); Total Protein,Serum 7.1 g/dl (6.3-8.2); Triglycerides 161 mg/dl (30-150); VLDL Cholesterol 32 mg/dL (0-40)
[2021-05-31 17:24] LABS: Direct LDL Cholesterol 74.44 mg/dL (100-129)
== END ==
PROVIDERS: Visit Provider Urology
DX: E78.5 Hyperlipidemia, unspecified (principal); I25.10 Atherosclerotic heart disease of native coronary artery without angina pectoris; I50.22 Chronic systolic (congestive) heart failure; Z95.5 Presence of coronary angioplasty implant and graft; Z95.810 Presence of automatic (implantable) cardiac defibrillator; I11.0 Hypertensive heart disease with heart failure
CPT/HCPCS: 36415; 80061; 80076

== ENCOUNTER → 2021-10-07 08:44 | Outpatient (CLI) | payer BC, SELFPAY ==
[2021-10-07 09:34] LABS: Basophils # 0.1 K/mm3 (0-0.2); Eosinophils # 0.2 K/mm3 (0.0-0.4); Eosinophils % 2.7 % (0.1-12.0); Hematocrit 43.4 % (42.0-52.0); Hemoglobin 14.5 g/dL (14.1-18.0); Lymphocytes # 2.1 K/mm3 (0.7-4.5); Lymphocytes % 27.5 % (10-50); Mean Corpuscular HGB Conc 33.4 g/dL (31.8-35.4); Mean Platelet Volume 8.1 fl (7.4-10.4); Monocytes # 0.4 K/mm3 (0.1-1.0); Monocytes % 5.2 % (1.7-9.3); Neutrophils # 4.9 K/mm3 (1.8-7.8); Neutrophils % 63.6 % (37.0-80.0); Platelet Count 216 K/mm3 (142-424); Red Blood Count 4.52 M/mm3 (4.60-6.20); Red Cell Distribution Width 13.6 % (11.5-17.5); White Blood Count 7.6 K/mm3 (4.8-10.8)
[2021-10-07 10:02] LABS: Microalbumin/Creatinine Ratio 47.7
[2021-10-07 10:03] LABS: Creatinine,Urine Random 101 mg/dL (Not Estab.)
[2021-10-07 10:18] LABS: Chloride 102 mmol/L (98-107)
[2021-10-07 10:19] LABS: Sodium 138 mmol/L (136-145)
[2021-10-07 10:21] LABS: Alanine Aminotransferase 38 U/L (12-78); Alkaline Phosphatase 84 U/L (38-126); Aspartate Amino Transferase 30 U/L (17-59); Bilirubin,Total 0.6 mg/dl (0.2-1.3); Blood Urea Nitrogen 29 mg/dl (9-20); Carbon Dioxide 22 mmol/L (22.0-30.0); Cholesterol 139 mg/dl (140-200); Estimated Glomerular Filt Rate 86 ml/min (>60); GFR (African American) 104 ML/MIN (>60); Triglycerides 167 mg/dl (30-150); VLDL Cholesterol 33 mg/dL (0-40)
[2021-10-07 10:22] LABS: Albumin Level 4.5 g/dl (3.5-5.0); Albumin/Globulin Ratio 1.6 (1.1-1.8); Calcium 9.6 mg/dl (8.4-10.2); Chol/HDL Ratio 3.4 (1-3.5); Globulin 2.9 g/dL (1.3-3.2); Glucose 268 mg/dl (74-100); HDL Cholesterol 41 mg/dl (40-60); Total Protein,Serum 7.4 g/dl (6.3-8.2)
[2021-10-07 10:33] LABS: Direct LDL Cholesterol 69.26 mg/dL (100-129)
[2021-10-07 13:34] LABS: Hemoglobin A1C 8.8 % (4.0-6.0)
[2021-10-07 14:34] LABS: Anion Gap 18.6 mEq/L (5-15); Potassium 4.6 mmoL/L (3.5-5.1)
== END ==
PROVIDERS: Visit Provider Family Medicine
DX: E11.9 Type 2 diabetes mellitus without complications (principal); Z79.4 Long term (current) use of insulin
CPT/HCPCS: 36415; 80053; 80061; 82043; 82570; 83036; 85025

== ENCOUNTER → 2021-10-12 11:57 | Outpatient (CLI) | payer BC, SELFPAY | PROVIDERS: PCP Emergency Medicine; Visit Provider Nurse Practitioner | DX: Z20.822 Contact with and (suspected) exposure to COVID-19 (principal) | CPT/HCPCS: C9803; U0003; U0005 ==

== ENCOUNTER 2022-01-20 13:56 | Emergency (ER) | payer BC, SELFPAY ==
[2022-01-20 14:00] VITALS: BP 138/88; PULSE 88; RESP 17; TEMP 36.9; O2SAT 100; BMI 32.9
[2022-01-20 14:24] LABS: UTC Influenza A Antigen Negative (Negative)
[2022-01-20 14:25] LABS: UTC Influenza B Antigen Negative (Negative)
[2022-01-20 14:40] VITALS: BP 138/88; PULSE 88; RESP 17; TEMP 36.9; O2SAT 100
--- NOTE | 2022-01-20 14:41 | HMH.EDUTC ---
[facility] [place] Disposition Clinical Impression: Bronchitis Disposition: Home, Self-Care Condition on Discharge: Good Instructions: DI for Acute Bronchitis Prescriptions: Brompheniramine/Pseudoephed/Dm [Bromfed DM Cough Syrup 5mL] 5 ml PO Q4HP PRN 10 Days #180 ml PRN Reason: Cough Transmission Status: Pending to [facility] Doxycycline Hyclate [Doxycycline Hyclate 100mg Tablet] 100 mg PO Q12 10 Days #20 tab Transmission Status: Pending to [facility] predniSONE [Prednisone 20mg Tab] 20 mg PO BID 5 Days #10 tab Transmission Status: Pending to [facility] Referrals: Riley Bland MD [Primary Care Provider] - Time of Disposition: 14:44 Medical Decision Making - Gaurav Inquiry Pt receiving controlled substance: No Vital Signs: 01/20/22 14:00 01/20/22 14:40 Temperature 98.5 F 98.5 F Temperature Source Oral Pulse Rate 88 Pulse Rate [Right Brachial] 88 Respiratory Rate 17 17 Blood Pressure 138/88 Blood Pressure [Right Arm] 138/88 Blood Pressure Mean [Right Arm] 104 Blood Pressure Source [Right Arm] Automatic Cuff Blood Pressure Position [Right Arm] Sitting 02 Sat by Pulse Oximetry 100 Oxygen Delivery Method Room Air - Lab Data Lab results reviewed: Yes: I reviewed the patient's lab results. Lab Results 01/20/22 14:18: Influenza Type A Ag Negative, Influenza Type B Ag Negative [facility] [place] HPI - General Stated complaint: sore throat, cough, body aches Time Seen by Provider: 01/20/22 14:41 Mode of Arrival: Ambulatory Source of Information: Patient Limitations: No Limitations Description of Symptoms (Recalled from Triage Doc. by RN): PATIENT C/O HEADACHE, NAUSEA, DIZZINESS, RUNNY NOSE, AND COUGH X 1 WEEK HEENT Symptoms (Recalled from RN notes): Yes Resp Symptoms (Recalled from RN notes): Yes Skin Symptoms (Recalled from RN notes): No MS Symptoms (Recalled from RN notes): No Functional Status (Recalled from RN notes): WNL - History of Present Illness Provider Complaint: Cough, congestion, runny nose, body aches, chills X 5 days. OTC meds not helping. Feels run down and tired. Onset (ago): day(s) (5) Location: chest Relieving factors: none Exacerbating factors: none Associated symptoms: denies other symptoms Treatments prior to arrival: other (Cold&Flu) - Related Data Home Medications Medication Instructions Recorded Confirmed aspirin 81 mg tablet,delayed 81 mg PO DAILY 02/04/19 12/06/21 release Furosemide [Furosemide 40MG tAB*] 40 mg PO DAILY 02/26/19 12/06/21 Cetirizine HCl 10 mg PO DAILY 05/12/19 12/06/21 omeprazole 40 mg capsule,delayed 40 mg PO DAILY cap 11/22/20 12/06/21 release tamsulosin 0.4 mg capsule 0.4 mg PO DAILY cap 05/31/21 12/06/21 Previous Rx's Medication Instructions Recorded fluticasone furoate 100 1 inh INHALATION DAILY #60 each 05/16/19 mcg-vilanterol 25 mcg/dose inhalation powder spironolactone 100 mg tablet 100 mg PO QAM #90 tab 09/01/19 nitroglycerin 400 mcg/spray 1 spray TL Q5M PRN #4.9 g 01/08/20 translingual polyethylene glycol 3350 17 17 g PO DAILY #119 g 04/20/20 gram/dose oral powder hydrocodone 5 mg-acetaminophen 325 1 tab PO BID #14 tab 04/23/20 mg tablet tramadol 50 mg tablet 50 mg PO TID #15 tab 04/23/20 metformin 1,000 mg tablet 1,000 mg PO BID #180 tab 01/28/21 losartan 50 mg tablet See Rx Instructions .ROUTE 09/23/21 .COMPLEX #60 tab empagliflozin 25 mg tablet 25 mg PO DAILY #90 tab 10/07/21 dulaglutide 1.5 mg/0.5 mL 1.5 mg SQ WEEKLY #2 ml 10/24/21 subcutaneous pen injector atorvastatin 40 mg tablet See Rx Instructions .ROUTE 11/21/21 .COMPLEX #30 tab carvedilol 25 mg tablet See Rx Instructions .ROUTE 11/21/21 .COMPLEX #60 tab glipizide 10 mg tablet See Rx Instructions .ROUTE 11/22/21 .COMPLEX #30 tab levothyroxine 25 mcg tablet See Rx Instructions .ROUTE 12/19/21 .COMPLEX #30 tab mirtazapine 15 mg tablet See Rx Instructions .ROUTE 01/18/22 .COMPLEX #30
== END 2022-01-20 14:56 | disposition home or self-care (01) ==
PROVIDERS: Emergency Provider Physician Assistant; PCP Emergency Medicine
DX: J20.9 Acute bronchitis, unspecified (principal); K21.9 Gastro-esophageal reflux disease without esophagitis; I10 Essential (primary) hypertension; E78.5 Hyperlipidemia, unspecified; Z79.899 Other long term (current) drug therapy
CPT/HCPCS: 87804; 99213; G0463

== ENCOUNTER 2022-02-18 13:11 | Emergency (ER) | payer BC, SELFPAY ==
[2022-02-18 13:25] VITALS: BP 143/78; PULSE 71; RESP 18; TEMP 36.9; O2SAT 99; BMI 33.5
--- NOTE | 2022-02-18 13:48 | HMH.EDUTC ---
[facility] [place] Clinical Impression: Bronchitis Sinusitis Qualifiers: Sinusitis location: unspecified location Chronicity: acute Recurrence: non-recurrent Qualified Code(s): J01.90 - Acute sinusitis, unspecified Disposition: Home, Self-Care Condition on Discharge: Good Instructions: DI for Sinusitis, DI for Acute Bronchitis Additional Instructions: Drink plenty of fluids. Take tylenol or ibuprofen for pain or fever. Take the medications as directed. Follow up with your regular doctor. GO TO THE ER FOR ANY WORSENING SYMPTOMS Don't start the oral steroids until tomorrow, since you had the shot here today. Prescriptions: Amoxicillin/Potassium Clav [Amox-Clav 875-125 mg Tablet] 1 tab PO BID #20 tab Transmission Status: Received by [id number] Benzonatate [Benzonatate 100mg cap] 100 mg PO TIDP PRN #30 cap PRN Reason: Cough Transmission Status: Received by [id number] predniSONE [Deltasone 10mg tablet] 10 mg PO DAILY 6 Days #8 tab Transmission Status: Received by [id number] Referrals: Riley Bland MD [Primary Care Provider] - Time of Disposition: 14:31 Medical Decision Making - Medical Records Medical records reviewed: No: I reviewed the patient's medical records. - Gaurav Inquiry Pt receiving controlled substance: No Vital Signs: 02/18/22 13:25 02/18/22 14:13 Temperature 98.4 F 98.4 F Temperature Source Oral Pulse Rate 71 Pulse Rate [Right Brachial] 71 Respiratory Rate 18 18 Blood Pressure 143/78 H Blood Pressure [Right Arm] 143/78 H Blood Pressure Mean [Right Arm] 99 Blood Pressure Source [Right Arm] Automatic Cuff Blood Pressure Position [Right Arm] Sitting 02 Sat by Pulse Oximetry 99 Orders (Tests/Meds): ED MEDICATIONS Discontinued Medications Generic Name Dose Route Start Last Admin Trade Name Freq PRN Reason Stop Dose Admin Ceftriaxone Sodium 1 gm 02/18/22 14:00 02/18/22 14:09 Ceftriaxone 1gm Vial IM 02/18/22 14:01 1 gm ONCE ONE Administration Lidocaine HCl 0 ml 02/18/22 14:00 02/18/22 14:09 Lidocaine 1% 5ml Pf Vial IM 02/18/22 14:01 2 ml ONCE ONE Administration Methylprednisolone Sodium Succinate 125 mg 02/18/22 14:00 02/18/22 14:10 Methylprednisolone Sod Succ 125mg Vial IM 02/18/22 14:01 125 mg ONCE ONE Administration [facility] [place]PI - General Stated complaint: cough, congestion, sore throat, h/a Time Seen by Provider: 02/18/22 13:49 Description of Symptoms (Recalled from Triage Doc. by RN): PT C/O OF SINUS PRESSURE, SINUS DRAINAGE, COUGH X'S 2 WEEKS. WAS TREATED HERE THEN AND STATES HE IS NOT FEELING ANY BETTER HEENT Symptoms (Recalled from RN notes): No Resp Symptoms (Recalled from RN notes): Yes Skin Symptoms (Recalled from RN notes): No MS Symptoms (Recalled from RN notes): No Functional Status (Recalled from RN notes): WNL - History of Present Illness Provider Complaint: He c/o having sinus congestion for the past 2 weeks. - Related Data Home Medications Medication Instructions Recorded Confirmed aspirin 81 mg tablet,delayed 81 mg PO DAILY 02/04/19 12/06/21 release Furosemide [Furosemide 40MG tAB*] 40 mg PO DAILY 02/26/19 12/06/21 Cetirizine HCl 10 mg PO DAILY 05/12/19 12/06/21 omeprazole 40 mg capsule,delayed 40 mg PO DAILY cap 11/22/20 12/06/21 release tamsulosin 0.4 mg capsule 0.4 mg PO DAILY cap 05/31/21 12/06/21 Previous Rx's Medication Instructions Recorded fluticasone furoate 100 1 inh INHALATION DAILY #60 each 05/16/19 mcg-vilanterol 25 mcg/dose inhalation powder spironolactone 100 mg tablet 100 mg PO QAM #90 tab 09/01/19 nitroglycerin 400 mcg/spray 1 spray TL Q5M PRN #4.9 g 01/08/20 translingual polyethylene glycol 3350 17 17 g PO DAILY #119 g 04/20/20 gram/dose oral powder hydrocodone 5 mg-acetaminophen 325 1 tab PO BID #14 tab 04/23/20 mg tablet tramadol 50 mg tablet 50 mg PO TID #15 tab 04/23/20 metformin 1,000 mg table
[2022-02-18 14:13] VITALS: BP 143/78; PULSE 71; RESP 18; TEMP 36.9; O2SAT 99
== END 2022-02-18 14:35 | disposition home or self-care (01) ==
PROVIDERS: Emergency Provider Nurse Practitioner Family; PCP Emergency Medicine
DX: J20.9 Acute bronchitis, unspecified (principal); J01.90 Acute sinusitis, unspecified; E11.9 Type 2 diabetes mellitus without complications; K21.9 Gastro-esophageal reflux disease without esophagitis; I10 Essential (primary) hypertension; F17.210 Nicotine dependence, cigarettes, uncomplicated; Z79.899 Other long term (current) drug therapy
CPT/HCPCS: 96372; 99213; G0463; J0696

== ENCOUNTER 2022-04-18 14:23 | Emergency (ER) | payer BC, SELFPAY ==
--- NOTE | 2022-04-18 14:23 | ECG_ITS ---
APPROVED REPORT Exam: Resting ECG HR:80 bpm ECG Measurements Heart Rate 80 AXES NJ 175 P -8 QRSd 129 QRS -5 QT 391 T 17 QTc 427 Conclusion ELECTRONIC ATRIAL PACEMAKER Underlying rhythm appears to be second-degree AV block Late R wave progression UNCONFIRMED REPORT Electronically signed by : Pito Hatch MD 04/19/2022 17:58:25
[2022-04-18 14:25] VITALS: BP 144/77; PULSE 80; RESP 16; TEMP 36.8; O2SAT 96; BMI 36.2
--- NOTE | 2022-04-18 14:32 | XR_ITS ---
FINAL REPORT CLINICAL HISTORY: CP COMPARISON: 04/18/2020 FINDINGS: SINGLE-VIEW CHEST There is mild cardiomegaly. Pacer is identified. The mediastinum is normal. There are chronic changes at the bases. The lungs are otherwise clear. There is no pneumothorax. IMPRESSION: No acute cardiopulmonary process. Reviewed, Interpreted and Dictated by Ricky Reyes MD Transcribed by Cecelia Penn Authenticated and [facility]
--- NOTE | 2022-04-18 14:34 | PC.NURSE ---
Notified rad of CXR
[2022-04-18 14:35] VITALS: BP 117/63; PULSE 86; RESP 16; TEMP 36.9; O2SAT 99
--- NOTE | 2022-04-18 14:35 | HMH.EDCP ---
ED Disposition Clinical Impression: Atypical chest pain Disposition: Home, Self-Care Condition on Discharge: Good Instructions: DI for Atypical Chest Pain Additional Instructions: follow up cardiology on Sunday, return here for worse Referrals: Riley Bland MD [Primary Care Provider] - Ephraim Reeves MD [Staff Physician] - - Critical Care Critical Care Time: No Attestation: On , the high probability of a clinically significant, sudden or life threatening deterioration of the following system(s) required my full and direct attention, intervention and personal management. The time I documented below is in addition to time spent performing reported procedures but includes the following listed in this critical care notation. Medical Decision Making - Medical Records Medical records reviewed: Yes: I reviewed the patient's medical records. - Gaurav Inquiry Pt receiving controlled substance: No Vital Signs: 04/18/22 14:25 Temperature 98.3 F Temperature Source Oral Pulse Rate [Right Radial] 80 Respiratory Rate 16 Blood Pressure [Right Arm] 144/77 H Blood Pressure Mean [Right Arm] 99 Blood Pressure Source [Right Arm] Automatic Cuff Blood Pressure Position [Right Arm] Sitting 02 Sat by Pulse Oximetry 96 Oxygen Delivery Method Room Air - Lab Data Lab Results 04/18/22 14:26: WBC 6.1, RBC 4.33 L, Hgb 13.4 L, Hct 41.9 L, MCV 97.0 H, MCH 31.1, MCHC 32.1, RDW 14.6, Plt Count 194, MPV 8.4, Neut % (Auto) 60.3, Lymph % (Auto) 29.5, [place] % (Auto) 6.0, Eos % (Auto) 2.9, Baso % (Auto) 1.4, Neut # (Auto) 3.7, Lymph # (Auto) 1.8, [place] # (Auto) 0.4, Eos # (Auto) 0.2, Baso # (Auto) 0.1 04/18/22 14:26: Sodium 141, Potassium 3.8, Chloride 107, Carbon Dioxide 27, Anion Gap 10.8, BUN 15, Creatinine 0.70, Estimated Creat Clear 108, Estimated GFR 115, Est GFR ( Amer) 139, Glucose 123 H, Calcium 9.2, Troponin I < 0.01 04/18/22 16:45: Troponin I < 0.01 Result diagrams: 04/18/22 14:26 04/18/22 14:26 Orders (Tests/Meds): ED MEDICATIONS Generic Name Dose Route Start Last Admin Trade Name Freq PRN Reason Stop Dose Admin Sodium Chloride 10 ml 04/18/22 14:32 Sodium Chloride 0.9% 10ml Flush Syringe IV 05/18/22 14:31 NEEDED PRN Maintain IV Site Discontinued Medications Generic Name Dose Route Start Last Admin Trade Name Freq PRN Reason Stop Dose Admin Aspirin 243 mg 04/18/22 14:34 04/18/22 14:52 Aspirin 81mg Chewable Tablet PO 04/18/22 14:35 243 mg ONCE ONE Administration ORDERS Category Date Time Status Troponin I Q3H Lab 04/18/22 20:45 Ordered - ECG Data Tracing #1 I reviewed this ECG and interpreted as documented below: ekg by me atrial paced, occ pvc, no st elev - Physician Consults Time: 17:20 (cards pa at bedside recs for f/u on , pt agreed to plan) - Reevaluation(s) Time: 17:21 (vss, appears well, cp free) Chest Pain HPI - General Chief Complaint: Chest Pain Stated Complaint: CP Time Seen by Provider: 04/18/22 14:35 Mode of Arrival: Ambulatory Limitations: No Limitations Description of Symptoms (Recalled from ER Triage Doc. by RN): Pt c/o intermittent CP x2 days. Reports cardiac hx. - History of Present Illness HPI narrative: cp, positional, left sided, assoc with nausea, intermittent, 1 week known cad/pacer Duration: intermittent Activity at onset: light activity Pain location: left chest Pain radiation: none Relieving factors: rest Exacerbating factors: movement Associated symptoms: nausea - Related Data Home Medications Medication Instructions Recorded Confirmed aspirin 81 mg tablet,delayed 81 mg PO DAILY 02/04/19 12/06/21 release Cetirizine HCl 10 mg PO DAILY 05/12/19 12/06/21 omeprazole 40 mg capsule,delayed 40 mg PO DAILY cap 11/22/20 12/06/21 release Previous Rx's Medication Instructions Recorded fluticasone furoate 100 1 inh INHALATION DAILY #60 each 05/16/19 mcg-vilanterol 25 mcg/dose
[2022-04-18 14:54] LABS: Basophils # 0.1 K/mm3 (0-0.2); Basophils % 1.4 % (0.1-2.0); Chloride 107 mmol/L (98-107); Eosinophils # 0.2 K/mm3 (0.0-0.4); Eosinophils % 2.9 % (0.1-12.0); Hematocrit 41.9 % (42.0-52.0); Hemoglobin 13.4 g/dL (14.1-18.0); Lymphocytes # 1.8 K/mm3 (0.7-4.5); Lymphocytes % 29.5 % (10-50); Mean Corpuscular HGB Conc 32.1 g/dL (31.8-35.4); Mean Corpuscular Hemoglobin 31.1 pg (27.0-31.2); Mean Platelet Volume 8.4 fl (7.4-10.4); Monocytes # 0.4 K/mm3 (0.1-1.0); Neutrophils # 3.7 K/mm3 (1.8-7.8); Neutrophils % 60.3 % (37.0-80.0); Platelet Count 194 K/mm3 (142-424); Red Blood Count 4.33 M/mm3 (4.60-6.20); Red Cell Distribution Width 14.6 % (11.5-17.5); Sodium 141 mmol/L (136-145); White Blood Count 6.1 K/mm3 (4.8-10.8)
[2022-04-18 14:55] LABS: Potassium 3.8 mmoL/L (3.5-5.1)
--- NOTE | 2022-04-18 14:55 | PC.NURSE ---
Rad has performed portable CXR, meds have been administered, pt has been evaluated by MD. Resting in bed at this time. Updated on POC.
[2022-04-18 14:57] LABS: Blood Urea Nitrogen 15 mg/dl (9-20); Creatinine Clearance Estimated 108 mL/min (50-200); Estimated Glomerular Filt Rate 115 ml/min (>60); GFR (African American) 139 ML/MIN (>60)
[2022-04-18 14:58] LABS: Anion Gap 10.8 mEq/L (5-15); Calcium 9.2 mg/dl (8.4-10.2); Carbon Dioxide 27 mmol/L (22.0-30.0); Glucose 123 mg/dl (74-100)
[2022-04-18 15:10] LABS: Troponin I < 0.01 ng/ml (0.00-0.034)
--- NOTE | 2022-04-18 15:19 | PC.NURSE ---
[facility] referred to Ray, who is coming down to see patient in ER
--- NOTE | 2022-04-18 15:29 | PC.NURSE ---
Vi ARRIAGA FROM CARDIOLOGY AT BEDSIDE
--- NOTE | 2022-04-18 16:02 | HMH.CNCARD ---
History of Present Illness Consult date: 04/18/22 Requesting physician: Pedro Cardozo Consult reason: chest pain Chief complaint: chest pain Additional Medical History:: 1. CAD A. History of stenting to LAD and RCA, 2017 2. Hypertension 3. Diabetes mellitus 4. AICD in situ 5. GERD 6. COPD 7. Hyperlipidemia History of present illness: 62-year-old white male with history of coronary artery disease/coronary stenting/AICD in situ presented to the emergency department for evaluation of several days history of intermittent chest pain that has progressed to be constant over the last 24 to 48 hours. The location of the chest discomfort is underneath the left breast and in the left sternal area. Symptoms seem to be related to movement or taking a deep breath and can be reproduced with palpation. This is not the same type of chest pain he has had with his heart in the past. 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 EKG shows a pacing with intermittent PVCs and poor R wave progression anteriorly. No acute ST elevation noted. Chest x-ray shows no acute cardiopulmonary abnormalities. Initial troponin is normal. AICD interrogated today with no arrhythmias noted in the last week. He continues to paced in the atrium less than 10% of the time and in the ventricle even less than that. His atrial fibrillation burden is less than 1%. Patient's device indicates some early signs of retaining water. On review of his medications his furosemide is not listed. [facility] History Medical History: Reports:: Coronary Artery Disease, Diabetes Mellitus Type 2, Gastroesophageal Reflux Disease(GERD), Hyperlipidemia, Hypertension, Internal Pacemaker *Have you ever received a pneumonia vaccine?: Yes *Have you received a flu vaccine this season?: Yes Other Surgeries: Yes: Angioplasty, Cardiac Catheterization, Pacemaker Amputation: No Fractures: No - *Social History Smoking Status: Current every day smoker Tobacco Type: cigarettes # Packs/Day (cigarettes): 1 Alcohol Intake: never Alcohol Intake Frequency:: holidays/special occasions only Substance Use Type: denies use *Occupational Status:: employed Housing: house Household Members: family *Travel in the last 8 weeks: Inside the [facility] Family Hx:: Coronary Artery Disease, Diabetes Meds Home Medications Medication Instructions Recorded Confirmed Type aspirin 81 mg tablet,delayed 81 mg PO DAILY 02/04/19 12/06/21 History release Furosemide [Furosemide 40MG tAB*] 40 mg PO DAILY 02/26/19 12/06/21 History Cetirizine HCl 10 mg PO DAILY 05/12/19 12/06/21 History fluticasone furoate 100 1 inh INHALATION DAILY #60 each 05/16/19 12/06/21 Rx mcg-vilanterol 25 mcg/dose inhalation powder spironolactone 100 mg tablet 100 mg PO QAM #90 tab 09/01/19 12/06/21 Rx nitroglycerin 400 mcg/spray 1 spray TL Q5M PRN #4.9 g 01/08/20 12/06/21 Rx translingual polyethylene glycol 3350 17 17 g PO DAILY #119 g 04/20/20 12/06/21 Rx gram/dose oral powder hydrocodone 5 mg-acetaminophen 325 1 tab PO BID #14 tab 04/23/20 12/06/21 Rx mg tablet tramadol 50 mg tablet 50 mg PO TID #15 tab 04/23/20 12/06/21 Rx omeprazole 40 mg capsule,delayed 40 mg PO DAILY cap 11/22/20 12/06/21 History release empagliflozin 25 mg tablet 25 mg PO DAILY #90 tab 10/07/21 12/06/21 Rx dulaglutide 1.5 mg/0.5 mL 1.5 mg SQ WEEKLY #2 ml 10/24/21 12/06/21 Rx subcutaneous pen injector mirtazapine 15 mg tablet See Rx Instructions .ROUTE 01/18/22 Rx .COMPLEX #30 tab pioglitazone 30 mg tablet See Rx Instructions .ROUTE 01/18/22 Rx .COMPLEX #30 tab sucralfate 1 gram tablet 1 g PO BID #60 tab 01/18/22 Rx Brompheniramine/Pseudoephed/Dm 5 ml PO Q4HP PRN 10 Days #180 ml 01/20/22 Rx [Bromfed DM Cough Syrup 5mL] Doxycycline Hyclate [Doxycycline 100 mg PO Q12 10 Days #20 tab 01/20/22 Rx Hyclate 100mg Tablet] predniSONE [Prednisone 20mg 20 mg PO BID 5 Days #10 tab
--- NOTE | 2022-04-18 16:11 | XR_ITS ---
FINAL REPORT CLINICAL HISTORY: chest pain, AICD in situ FINDINGS: LATERAL CHEST A single lateral view is obtained. A pacemaker is again noted. No pleural effusions are identified. IMPRESSION: No pleural effusions identified. Reviewed, Interpreted and Dictated by Ricky Reyes MD Transcribed by Ken Ramirez Authenticated and [facility]
[2022-04-18 17:18] LABS: Troponin I < 0.01 ng/ml (0.00-0.034)
== END 2022-04-18 14:35 | disposition home or self-care (01) ==
PROVIDERS: Emergency Provider Emergency Medicine; PCP Emergency Medicine
DX: R07.89 Other chest pain (principal); R11.0 Nausea; I25.10 Atherosclerotic heart disease of native coronary artery without angina pectoris; K21.9 Gastro-esophageal reflux disease without esophagitis; E78.5 Hyperlipidemia, unspecified; E11.9 Type 2 diabetes mellitus without complications; F17.210 Nicotine dependence, cigarettes, uncomplicated; Z79.51 Long term (current) use of inhaled steroids; Z79.82 Long term (current) use of aspirin; Z79.84 Long term (current) use of oral hypoglycemic drugs; Z79.899 Other long term (current) drug therapy; Z88.8 Allergy status to other drugs, medicaments and biological substances; Z95.0 Presence of cardiac pacemaker; Z82.49 Family history of ischemic heart disease and other diseases of the circulatory system; Z83.3 Family history of diabetes mellitus
CPT/HCPCS: 71045; 71046; 80048; 84484; 85025; 93005; 99285

== ENCOUNTER → 2022-05-01 10:28 | Outpatient (CLI) | payer BC, SELFPAY ==
--- NOTE | 2022-05-01 | CA_ITS ---
APPROVED REPORT Exam: Pharmacologic Technologist: Myranda Walker, Ht: 4 ft 9 in Wt: 220 lbs BSA: 1.87 m2 HR: 79 bpm BP: 148/80 mmHg Medical History Medications: Omeprazole,,,,, Levothyroxine,,,,, Aspirin,,,,, Hydrocodone,,,,, Losartan,,,,, Atorvastatin,,,,, Coreg,,,,, Tramadol,,,,, Nitroglycerin,,,,, SpirOnolactone,,,,, ActOS,,,,, JaRDiance,,,,, Stress Test Details Test: CHELYISCNATALIYA Reason for pharmacologic stress test: physical limitation. HR Resting HR: 86 bpm Max Heart Rate (APMHR): 159.523450 bpm Max HR Achieved: 103 bpm Target HR (85% APMHR): 135.052705 bpm % of APMHR: 64.78 Recovery HR: 88 bpm BP Resting BP: 148.0/80.0 mmHg Max BP: 148.0/80.0 mmHg Recovery BP: 141.0/73.0 mmHg ECG Resting ECG: NSR, Frequent PVC's Clinical Reason for Termination: Completed Protocol Exercise duration: 04:01 min Highest Stage Achieved: Exercise capacity: 1.0 METs Stress ECG Conclusion Symptoms: None Arrhythmias/Ectopy: Frequent PVC's (Bigeminy, Trigeminy) ST-T Changes: <1.5mm ST Segment changes Conclusion: Non-Diagnostic Test Summary REST . . . . . . . Resting REST 02:24 . . 86 . 148/ 80 . . Stage 1 01:00 . . 79 . . . . Stage 2 01:00 . . 98 . 124/ 72 . . Stage 3 01:00 . . 94 . . . . Stage 4 01:00 . . 94 . 130/ 76 . . Stage 4 01:01 . . 92 . 130/ 76 . Stop exercise at 04:01 RECOVERY 01:00 . . 88 . 140/ 71 . . RECOVERY 02:00 . . 95 . 140/ 71 . . RECOVERY 02:26 . . 95 . 141/ 73 . . Electronically signed by : José Miguel Muhammad MD 05/01/2022 18:58:51
--- NOTE | 2022-05-01 10:36 | NM_ITS ---
APPROVED REPORT Exam: Nuclear Stress Test Indication: chest pain..short of breath Patient Location: Outpatient Stress Tech: Myranda Yañez ND Tech:NOE Ott RT(R)(N) Ht: 5 ft 7 in Wt: 220 lbs HR: 86 bpm BP: 148/80 mmHg BSA: 2.11 m2 TID: 1.19 BMI: 34.4 History: chest pain..short of breath Procedure: Patient received a 0.4 mg of intravenous Lexiscan, resting heart rate 86 bpm, resting blood pressure 148/80 mmHg, with Lexiscan maximum heart rate achived was 103 bpm which is Less than 85 % of the maximum predicted heart rate and blood pressure was 148/80 mmHg. With Lexiscan, patient denied any complaint of chest pain. Electrocardiogram Electrocardiogram shows electronically paced rhythm with right ventricular conduction delay, with Lexiscan there is less than 1.[address] segment depression noted from the baseline EKG. The EKG portion of the Lexiscan is nondiagnostic. Cardiac Stress and Resting SPECT Images: Cardiac Stress and Resting SPECT images were obtained using technetium 99m Myoview 32.6 mCi stress and 10.32 mCi at rest. Gated SPECT for analysis of segmental wall motion and calculation of the ejection fraction also done. Cardiac stress and rest SPECT images show large area of fixed defect involving the anterior, anteroseptal and apical wall consistent with area of myocardial scarring without significant june-infarct ischemia, computer derived ejection fraction is 27% with marked hypokinesis involving the anterior, apex and anteroseptal wall. Right ventricle is normal size and contractility. Conclusion: 1. The EKG portion of the Lexiscan is nondiagnostic. 2. Scintigraphic evidence of myocardial scarring involving the anterior, apical and anteroseptal wall without significant june-infarct ischemia, computer derived ejection fraction 27% with segmental wall motion abnormality described above, right ventricle is normal size and contractility. 3. Abnormal Lexiscan Myoview study. Electronically signed by : José Miguel Muhammad MD 05/01/2022 19:04:49
== END ==
PROVIDERS: PCP Emergency Medicine; Visit Provider Physician Assistant
DX: R06.09 Other forms of dyspnea (principal); R42 Dizziness and giddiness; I25.10 Atherosclerotic heart disease of native coronary artery without angina pectoris
CPT/HCPCS: 78452; 93017; A9502; J2785

== ENCOUNTER 2022-05-30 17:22 | Emergency (ER) | payer BC, SELFPAY ==
[2022-05-30 17:25] VITALS: BP 140/74; PULSE 76; RESP 16; TEMP 36.6; O2SAT 98; BMI 35.5
--- NOTE | 2022-05-30 17:48 | PC.NURSE ---
cleaned up pts leg of most blood
--- NOTE | 2022-05-30 18:34 | XR_ITS ---
PROCEDURE INFORMATION: Exam: XR Right Tibia and Fibula Exam date and time: 05/30/2022 6:40 PM Age: 62 years old Clinical indication: Other: Laceration; Additional info: Injury, mower vs trailer TECHNIQUE: Imaging protocol: Radiologic exam of the Right tibia and fibula. Views: 2 views. COMPARISON: No relevant prior studies available. FINDINGS: Bones/joints: No fracture. Mild anterior spurring at the tibial plafond. Normal alignment is maintained at the knee and ankle. The ankle mortise joint is well maintained. Knee joint spaces are grossly well-maintained. Proximal and distal tibiofibular alignment is normal. No blastic or lytic lesions. No gross joint effusion. Soft tissues: No periostitis or osteolysis. No gross soft tissue abnormalities. The clinically described soft tissue laceration is not well visualized radiographically. No radiopaque foreign bodies. IMPRESSION: No acute findings.
--- NOTE | 2022-05-30 18:46 | HMH.EDGENADL ---
ED Disposition Clinical Impression: Laceration of right leg excluding thigh Qualifiers: Encounter type: initial encounter Qualified Code(s): S81.811A - Laceration without foreign body, right lower leg, initial encounter Disposition: Home, Self-Care Condition on Discharge: Good Additional Instructions: Irrigate wound daily with cool running water. Apply antibiotic ointment and a nonadhesive dressing thereafter. Return for increasing redness or other concerns. Prescriptions: cephALEXin [Cephalexin 500mg Tab] 500 mg PO Q8 #20 tab Transmission Status: Pending to [facility] Hydrocodone/Acetaminophen [Hydrocodone-Acetamin 5-325 mg] 1 each PO Q6 PRN #8 tablet PRN Reason: Moderate Pain Transmission Status: Sent to [facility] Referrals: Riley Bland MD [Primary Care Provider] - - Critical Care Critical Care Time: No Attestation: On 05/30/22, the high probability of a clinically significant, sudden or life threatening deterioration of the following system(s) required my full and direct attention, intervention and personal management. The time I documented below is in addition to time spent performing reported procedures but includes the following listed in this critical care notation. Medical Decision Making - Medical Records Medical records reviewed: Yes: I reviewed the patient's medical records. - Gaurav Inquiry Pt receiving controlled substance: Yes Gaurav was queried for this patient: Yes Risks and benefits of using a controlled substance: were discussed with pt by me Vital Signs: 05/30/22 17:25 Temperature 98 F Temperature Source Oral Pulse Rate [Radial] 76 Respiratory Rate 16 Blood Pressure [Right Arm] 140/74 Blood Pressure Mean [Right Arm] 96 Blood Pressure Position [Right Arm] Sitting 02 Sat by Pulse Oximetry 98 Oxygen Delivery Method Room Air - Lab Data Lab results reviewed: Yes: I reviewed the patient's lab results. Orders (Tests/Meds): ED MEDICATIONS Discontinued Medications Generic Name Dose Route Start Last Admin Trade Name Freq PRN Reason Stop Dose Admin Hydrocodone Bitart/Acetaminophen 1 tab 05/30/22 19:08 Hydrocodone/Apap 5/325 Mg Tablet PO 05/30/22 19:09 ONCE ONE General Adult HPI - General Chief complaint: PAIN Stated complaint: AO 05/30@1630 Injured R Leg Time Seen by Provider: 05/30/22 19:22 Mode of Arrival: Ambulatory Limitations: No Limitations Description of Symptoms (Recalled from ER Triage Doc. by RN): to ed per pvt car pt states he was loading a riding mower onto a trailer and got his rt lower leg caught between mower and trailer. abrasion noted to rt lower leg. - History of Present Illness HPI narrative: Is complaining of right leg pain after having like becoming caught between a trailer and a riding lawnmower. She was not struck by the blade of the lawn more. He denies this injury she denies focal neurological symptoms distal to the injury. He describes the pain as moderate to severe and worse with walking. - Related Data Home Medications Medication Instructions Recorded Confirmed aspirin 81 mg tablet,delayed 81 mg PO DAILY 02/04/19 05/08/22 release omeprazole 40 mg capsule,delayed 40 mg PO DAILY cap 11/22/20 05/08/22 release Previous Rx's Medication Instructions Recorded fluticasone furoate 100 1 inh INHALATION DAILY #60 each 05/16/19 mcg-vilanterol 25 mcg/dose inhalation powder nitroglycerin 400 mcg/spray 1 spray TL Q5M PRN #4.9 g 01/08/20 translingual dulaglutide 1.5 mg/0.5 mL 1.5 mg SQ WEEKLY #2 ml 10/24/21 subcutaneous pen injector glipizide 10 mg tablet See Rx Instructions .ROUTE 03/03/22 .COMPLEX #30 tab metformin 1,000 mg tablet See Rx Instructions .ROUTE 03/03/22 .COMPLEX #60 tab tamsulosin 0.4 mg capsule See Rx Instructions .ROUTE 03/03/22 .COMPLEX #30 cap atorvastatin 40 mg tablet See Rx Instructions .ROUTE 03/07/22 .COMPLEX #30 tab carvedilol 25 mg ta
[2022-05-30 20:16] VITALS: BP 150/75; PULSE 70; RESP 18; TEMP 36.6; O2SAT 98
== END 2022-05-30 20:19 | disposition home or self-care (01) ==
PROVIDERS: Emergency Provider Emergency Medicine; PCP Emergency Medicine
DX: S81.811A Laceration without foreign body, right lower leg, initial encounter (principal); W23.0XXA Caught, crushed, jammed, or pinched between moving objects, initial encounter; Z23 Encounter for immunization; Z79.82 Long term (current) use of aspirin; Z79.899 Other long term (current) drug therapy; I25.10 Atherosclerotic heart disease of native coronary artery without angina pectoris; E11.9 Type 2 diabetes mellitus without complications; K21.9 Gastro-esophageal reflux disease without esophagitis; E78.5 Hyperlipidemia, unspecified; I10 Essential (primary) hypertension; Z95.0 Presence of cardiac pacemaker; Z87.891 Personal history of nicotine dependence
CPT/HCPCS: 73590; 90471; 90715; 99283

== ENCOUNTER 2022-06-04 14:19 | Emergency (ER) | payer BC, SELFPAY ==
--- NOTE | 2022-06-04 14:29 | EXP.UTC ---
Discharge Plan Disposition Patient Disposition: Home, Self-Care Condition: Good Prescriptions Prescriptions: New mupirocin 2 % ointment 1 applic topical TID 7 Days Qty: 1 0RF No Action aspirin [Giselle Low Dose Aspirin] 81 mg tablet,delayed release (DR/EC) 81 mg PO DAILY Breo Ellipta 100-25 mcg/dose blister with device 1 inh INHALATION DAILY Qty: 60 2RF omeprazole 40 mg capsule,delayed release(DR/EC) 40 mg PO DAILY nitroglycerin 400 mcg/spray spray,non-aerosol 1 spray TL Q5M PRN (Reason: chest pain) Qty: 4.9 2RF Rx Instructions: do not exceed 3 doses per episode Trulicity 1.5 mg/0.5 mL pen injector 1.5 mg SQ WEEKLY Qty: 2 10RF glipizide 10 mg tablet See Rx Instructions .ROUTE .COMPLEX Qty: 30 2RF Dose Instruction: TAKE ONE TABLET BY MOUTH ONCE A DAY Rx Instructions: TAKE ONE TABLET BY MOUTH ONCE A DAY tamsulosin 0.4 mg capsule See Rx Instructions .ROUTE .COMPLEX Qty: 30 2RF Dose Instruction: TAKE ONE CAPSULE BY MOUTH ONCE A DAY Rx Instructions: TAKE ONE CAPSULE BY MOUTH ONCE A DAY metformin 1,000 mg tablet See Rx Instructions .ROUTE .COMPLEX Qty: 60 2RF Dose Instruction: TAKE ONE TABLET BY MOUTH 2 TIMES A DAY Rx Instructions: TAKE ONE TABLET BY MOUTH 2 TIMES A DAY atorvastatin 40 mg tablet See Rx Instructions .ROUTE .COMPLEX Qty: 30 5RF Dose Instruction: TAKE ONE TABLET BY MOUTH ONCE A DAY Rx Instructions: TAKE ONE TABLET BY MOUTH ONCE A DAY carvedilol 25 mg tablet See Rx Instructions .ROUTE .COMPLEX Qty: 60 5RF Dose Instruction: TAKE ONE TABLET BY MOUTH 2 TIMES A DAY Rx Instructions: TAKE ONE TABLET BY MOUTH 2 TIMES A DAY losartan 50 mg tablet See Rx Instructions .ROUTE .COMPLEX Qty: 60 5RF Dose Instruction: TAKE TWO TABLETS (100MG) BY MOUTH ONCE A DAY Rx Instructions: TAKE TWO TABLETS (100MG) BY MOUTH ONCE A DAY levothyroxine 25 mcg tablet See Rx Instructions .ROUTE .COMPLEX Qty: 30 2RF Dose Instruction: TAKE ONE TABLET BY MOUTH ONCE A DAY FOR THYROID Rx Instructions: TAKE ONE TABLET BY MOUTH ONCE A DAY FOR THYROID furosemide 40 mg tablet 40 mg PO DAILY Qty: 90 3RF sucralfate [Carafate] 1 gram tablet 1 g PO BID Qty: 60 2RF mirtazapine 15 mg tablet See Rx Instructions .ROUTE .COMPLEX Qty: 30 2RF Dose Instruction: TAKE ONE TABLET BY MOUTH AT BEDTIME Rx Instructions: TAKE ONE TABLET BY MOUTH AT BEDTIME pioglitazone 30 mg tablet See Rx Instructions .ROUTE .COMPLEX Qty: 30 2RF Dose Instruction: TAKE ONE TABLET BY MOUTH ONCE A DAY Rx Instructions: TAKE ONE TABLET BY MOUTH ONCE A DAY cephalexin 500 MG tablet 500 mg PO Q8 Qty: 20 0RF hydrocodone-acetaminophen 1 EACH tablet 1 each PO Q6 PRN (Reason: Moderate Pain) Qty: 8 0RF Referrals Follow up/Referrals: Riley Bland MD [Primary Care Provider] - See instructions Activity Restrictions/Add. Instructions Additional Instructions/Restrictions: Keep the wound clean and dry. Keep a dressing on it if you are going to be getting it dirty. Watch the wounds for signs of infection, such as redness, swelling, drainage, fever. etc. Give tylenol or ibuprofen for pain. Follow up with your regular doctor. GO TO THE ER FOR ANY WORSENING SYMPTOMS OR CONCERNS. 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
[2022-06-04 14:36] VITALS: BP 111/74; PULSE 60; RESP 18; TEMP 36.6; O2SAT 96; BMI 35.5
[2022-06-04 15:02] VITALS: BP 111/74; PULSE 60; RESP 18; TEMP 36.6
== END 2022-06-04 15:14 | disposition home or self-care (01) ==
PROVIDERS: Emergency Provider Nurse Practitioner Family; PCP Emergency Medicine
DX: S80.812A Abrasion, left lower leg, initial encounter (principal); R07.9 Chest pain, unspecified; Z79.51 Long term (current) use of inhaled steroids; Z79.84 Long term (current) use of oral hypoglycemic drugs; Z88.8 Allergy status to other drugs, medicaments and biological substances; Z87.891 Personal history of nicotine dependence; W23.0XXA Caught, crushed, jammed, or pinched between moving objects, initial encounter; Y92.009 Unspecified place in unspecified non-institutional (private) residence as the place of occurrence of the external cause
CPT/HCPCS: 99213; G0463

== ENCOUNTER → 2023-01-29 23:16 | Outpatient (CLI) | payer BC, SELFPAY ==
[2023-01-29 18:45] LABS: Basophils # 0.1 K/mm3 (0-0.2); Basophils % 0.5 % (0.1-2.0); Eosinophils # 0.2 K/mm3 (0.0-0.4); Eosinophils % 1.9 % (0.1-12.0); Hematocrit 44.3 % (42.0-52.0); Hemoglobin 14.6 g/dL (14.1-18.0); Lymphocytes # 2.4 K/mm3 (0.7-4.5); Mean Corpuscular HGB Conc 32.9 g/dL (31.8-35.4); Mean Corpuscular Hemoglobin 31.2 pg (27.0-31.2); Mean Corpuscular Volume 94.8 fl (80-94); Mean Platelet Volume 9.3 fl (7.4-10.4); Monocytes # 0.5 K/mm3 (0.1-1.0); Monocytes % 5.5 % (1.7-9.3); Neutrophils # 6.3 K/mm3 (1.8-7.8); Neutrophils % 67.1 % (37.0-80.0); Platelet Count 220 K/mm3 (142-424); Red Blood Count 4.67 M/mm3 (4.60-6.20); Red Cell Distribution Width 14.1 % (11.5-17.5); White Blood Count 9.4 K/mm3 (4.8-10.8)
[2023-01-29 19:13] LABS: Alanine Aminotransferase 29 U/L (12-78); Albumin Level 4.5 g/dl (3.5-5.0); Albumin/Globulin Ratio 1.6 (1.1-1.8); Alkaline Phosphatase 103 U/L (38-126); Anion Gap 15.3 mEq/L (5-15); Aspartate Amino Transferase 25 U/L (17-59); Blood Urea Nitrogen 18 mg/dl (9-20); Calcium 9.4 mg/dl (8.4-10.2); Carbon Dioxide 25 mmol/L (22.0-30.0); Chloride 101 mmol/L (98-107); Chol/HDL Ratio 4.1 (1-3.5); Cholesterol 150 mg/dl (140-200); Estimated Glomerular Filt Rate 115 ml/min (>60); GFR (African American) 139 ML/MIN (>60); Globulin 2.9 g/dL (1.3-3.2); Glucose 352 mg/dl (74-100); HDL Cholesterol 37 mg/dl (40-60); Potassium 4.3 mmoL/L (3.5-5.1); Sodium 137 mmol/L (136-145); Total Protein,Serum 7.4 g/dl (6.3-8.2); Triglycerides 159 mg/dl (30-150); VLDL Cholesterol 32 mg/dL (0-40)
[2023-01-29 19:22] LABS: Erythrocyte Sedimentation Rate 12 mm/hr (0-20)
[2023-01-29 19:25] LABS: C-Reactive Protein 3.2 mg/L (0-4); Direct LDL Cholesterol 85.63 mg/dL (100-129)
[2023-01-29 19:30] LABS: 25-OH Vitamin D, Total 22.5 ng/mL (30-100)
[2023-01-29 19:35] LABS: Free Thyroxine Index 2.9 ug/dL (5.93-13.13); T4 (Thyroxine) 7.6 ug/dl (5.53-11.0); Triiodothryronine (T3) Uptake 38 % (23.5-40.5)
[2023-01-29 19:48] LABS: Thyroid Stimulating Hormone 2.22 uIU/mL (0.465-4.68)
[2023-01-29 22:16] LABS: Hemoglobin A1C 9.2 % (4.0-6.0)
[2023-01-31 11:30] LABS: RA Latex Turbid. <10.0 IU/mL (<14.0)
[2023-01-31 13:12] LABS: Anti-Cyclic Citrullinated Pept 3 units (0-19)
[2023-01-31 15:10] LABS: Anti-Centromere B Antibodies <0.2 AI (0.0-0.9); Anti-DNA (DS) Ab Qn 4 IU/mL (0-9); Anti-Jo-1 <0.2 AI (0.0-0.9); Anti-Smith Antibody <0.2 AI (0.0-0.9); Antichromatin Antibodies <0.2 AI (0.0-0.9); Antiscleroderma-70 Antibodies <0.2 AI (0.0-0.9); RNP Antibodies <0.2 AI (0.0-0.9); Sjogren's Anti-SS-A 0.2 AI (0.0-0.9); Sjogren's Anti-SS-B <0.2 AI (0.0-0.9)
== END ==
PROVIDERS: PCP Nurse Practitioner Family; Visit Provider Nurse Practitioner Family
DX: Z00.00 Encounter for general adult medical examination without abnormal findings (principal); E11.9 Type 2 diabetes mellitus without complications; E55.9 Vitamin D deficiency, unspecified; Z79.4 Long term (current) use of insulin; Z79.899 Other long term (current) drug therapy
CPT/HCPCS: 80053; 80061; 82306; 83036; 84436; 84443; 84479; 85025; 85651; 86140; 86200; 86225; 86235; 86431

== ENCOUNTER → 2023-02-12 13:30 | Outpatient (CLI) | payer BC, SELFPAY | LOC: RT 13:33 | PROVIDERS: PCP Emergency Medicine; Visit Provider Internal Medicine | DX: I20.8 Other forms of angina pectoris (principal); I11.0 Hypertensive heart disease with heart failure; I50.22 Chronic systolic (congestive) heart failure; E78.2 Mixed hyperlipidemia; R94.30 Abnormal result of cardiovascular function study, unspecified; R94.31 Abnormal electrocardiogram [ECG] [EKG]; Z95.5 Presence of coronary angioplasty implant and graft; Z95.810 Presence of automatic (implantable) cardiac defibrillator | CPT/HCPCS: 93306 ==

== ENCOUNTER 2023-02-21 08:45 | Day surgery (SDC) | payer BC, SELFPAY ==
[2023-02-21] VITALS (13 sets, daily range): BP systolic 129–163; BP diastolic 68–94; PULSE 70–88; RESP 16–18; TEMP 36.6–36.7; O2SAT 95–99; BMI 36.6
--- NOTE | 2023-02-21 07:21 | IR_ITS ---
APPROVED REPORT Patient Location: Outpatient PROCEDURES Left heart catheterization Left ventriculogram Selective coronary angiogram Drug-eluting stent deployment to the mid LAD Drug-eluting stent deployment to the proximal circumflex artery INDICATION Coronary artery disease, Systolic congestive heart failure, Progressive angina pectoris, High risk abnormal Myoview Informed consent was obtained prior to the procedure. COMPLICATIONS None Estimated Blood Loss: Less than 10 mls TECHNIQUE One percent lidocaine used to anesthetize the right anterior aspect of the wrist. The right radial artery was accessed via the Seldinger technique. A 6 [place] sheath was placed in the right radial artery. 150 mg magnesium sulfate, 800 mcg of nitroglycerin, 1mg Lidocaine and 5000 U Heparin were given through the arterial sheath. The papa catheter was also used to perform left heart catheterization, left ventriculogram and selective coronary angiogram. At the end the diagnostic angiogram therapeutic heparin was administered giving a therapeutic ACT and the guide catheter was placed in the left main artery followed by a Choice PT extra-support wire being placed on the LAD. A 2.5 x 18 mm resolute frontier stent was deployed at 20 amaris reducing the severe stenosis to 0%. The wire was pulled back and placed in the circumflex artery where an additional 3.5 x 22 mm resolute frontier stent was then deployed at 20 amaris reducing the severe stenosis to 0%. ERIC-3 flow was present down each vessel before and after the procedure. At the end the procedure the apparatus was removed the sheath was removed and hemostasis was achieved and TR banding patient was transferred to the postop putting in stable condition ANGIOGRAPHIC RESULTS The left main artery Normal The left anterior descending artery Has proximal 10 to 20% stenoses with additional 10 to 20% stenoses. There is a stent in the mid LAD which is widely patent with minimal in-stent restenosis. Distal to the stent is a concentric 90% stenosis followed by additional 30% distal stenoses. The circumflex artery Is probably a co-dominant vessel and has a proximal 70% stenosis followed by an additional 40% stenosis The right coronary artery Probably codominant and ostially occluded The PURCELL ventriculogram reveals Dilated ventricle ejection fraction globally hypokinetic EF 25% The left ventricular end-diastolic pressure 20 mmHg IMPRESSION Severe to critical three-vessel coronary disease as described above Chronically occluded right coronary Successful stent to the mid LAD severe disease reduced to 0% with 1 drug-eluting stent Successful stenting the proximal circumflex artery severe disease reduced to 0% with 1 drug-eluting stent LV dysfunction with left ventricular dilatation Mildly elevated LVEDP PLAN 1. Dual antiplatelet therapy 2. Risk factor modification 3. Standard therapy for ischemic heart disease 4. Standard therapy for systolic congestive heart failure 5. Avoidance of tobacco products 6. LDL less than 55 to be achieved with high intensity statin 7. Cardiac rehabilitation Electronically signed by : Ephraim Reeves MD 02/21/2023 14:54:43
[2023-02-21 09:20] LABS: Basophils % 0.3 % (0.1-2.0); Eosinophils # 0.2 K/mm3 (0.0-0.4); Eosinophils % 1.8 % (0.1-12.0); Hematocrit 41.5 % (42.0-52.0); Lymphocytes # 1.8 K/mm3 (0.7-4.5); Lymphocytes % 17.8 % (10-50); Mean Corpuscular HGB Conc 33.7 g/dL (31.8-35.4); Mean Corpuscular Hemoglobin 31.7 pg (27.0-31.2); Mean Platelet Volume 8.6 fl (7.4-10.4); Monocytes # 0.6 K/mm3 (0.1-1.0); Monocytes % 5.8 % (1.7-9.3); Neutrophils # 7.6 K/mm3 (1.8-7.8); Neutrophils % 74.2 % (37.0-80.0); Platelet Count 211 K/mm3 (142-424); Red Blood Count 4.41 M/mm3 (4.60-6.20); Red Cell Distribution Width 13.7 % (11.5-17.5); White Blood Count 10.2 K/mm3 (4.8-10.8)
[2023-02-21 09:26] LABS: Anion Gap 20.6 mEq/L (5-15); Blood Urea Nitrogen 20 mg/dl (9-20); Calcium 9.3 mg/dl (8.4-10.2); Carbon Dioxide 22 mmol/L (22.0-30.0); Chloride 102 mmol/L (98-107); Creatinine Clearance Estimated 112 mL/min (50-200); Estimated Glomerular Filt Rate 137 ml/min (>60); GFR (African American) 165 ML/MIN (>60); Glucose 262 mg/dl (74-100); Potassium 4.6 mmoL/L (3.5-5.1); Sodium 140 mmol/L (136-145)
[2023-02-21 12:34] LABS: CATHL Activated Clotting Time 355 SEC (74-125)
--- NOTE | 2023-02-21 15:05 | HMH.PHACL ---
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 -CANDELARIO MONTOYA, ALICED
== END 2023-02-21 15:40 | disposition home or self-care (01) ==
PROVIDERS: PCP Emergency Medicine; Visit Provider Internal Medicine
DX: I25.118 Atherosclerotic heart disease of native coronary artery with other forms of angina pectoris (principal); I11.0 Hypertensive heart disease with heart failure; I50.22 Chronic systolic (congestive) heart failure; Z95.810 Presence of automatic (implantable) cardiac defibrillator; Z95.5 Presence of coronary angioplasty implant and graft; R94.31 Abnormal electrocardiogram [ECG] [EKG]; Z79.899 Other long term (current) drug therapy; Z79.4 Long term (current) use of insulin; E11.9 Type 2 diabetes mellitus without complications; E78.5 Hyperlipidemia, unspecified
CPT/HCPCS: 80048; 85025; 85347; 92928; 93458; 99152; C1725; C1760; C1769; C1876; C9600; J1644; Q9967

== ENCOUNTER → 2023-02-26 07:06 | Outpatient (CLI) | payer BC, SELFPAY ==
[2023-02-26 08:17] LABS: Basophils % 0.4 % (0.1-2.0); Eosinophils # 0.2 K/mm3 (0.0-0.4); Hematocrit 42.6 % (42.0-52.0); Hemoglobin 14.3 g/dL (14.1-18.0); Lymphocytes # 2.3 K/mm3 (0.7-4.5); Lymphocytes % 22.7 % (10-50); Mean Corpuscular HGB Conc 33.5 g/dL (31.8-35.4); Mean Corpuscular Hemoglobin 31.9 pg (27.0-31.2); Mean Platelet Volume 8.3 fl (7.4-10.4); Monocytes # 0.6 K/mm3 (0.1-1.0); Monocytes % 5.7 % (1.7-9.3); Neutrophils # 6.9 K/mm3 (1.8-7.8); Neutrophils % 69.1 % (37.0-80.0); Platelet Count 237 K/mm3 (142-424); Red Blood Count 4.48 M/mm3 (4.60-6.20); Red Cell Distribution Width 13.7 % (11.5-17.5)
[2023-02-26 08:54] LABS: Anion Gap 16.6 mEq/L (5-15); Blood Urea Nitrogen 21 mg/dl (9-20); Calcium 9.4 mg/dl (8.4-10.2); Carbon Dioxide 23 mmol/L (22.0-30.0); Chloride 103 mmol/L (98-107); Estimated Glomerular Filt Rate 114 ml/min (>60); GFR (African American) 138 ML/MIN (>60); Glucose 275 mg/dl (74-100); Potassium 4.6 mmoL/L (3.5-5.1); Sodium 138 mmol/L (136-145)
== END ==
PROVIDERS: PCP Emergency Medicine; Visit Provider Internal Medicine
DX: I25.10 Atherosclerotic heart disease of native coronary artery without angina pectoris (principal); Z95.5 Presence of coronary angioplasty implant and graft
CPT/HCPCS: 36415; 80048; 85025

== ENCOUNTER 2023-05-11 17:22 | Emergency (ER) | payer BC, SELFPAY ==
[2023-05-11 17:30] VITALS: BP 145/69; PULSE 84; RESP 20; TEMP 36.7; O2SAT 97; BMI 34.9
--- NOTE | 2023-05-11 18:07 | EXP.UTC ---
Discharge Plan Disposition Patient Disposition: Still a Patient Prescriptions Prescriptions: No Action aspirin [Giselle Low Dose Aspirin] 81 mg tablet,delayed release (DR/EC) 81 mg PO DAILY cetirizine [Zyrtec] 10 mg tablet 10 mg PO DAILY Qty: 30 0RF fluticasone propionate [Flonase Allergy Relief] 50 mcg/actuation spray,suspension 1 spray intranasal DAILY Qty: 16 2RF Rx Instructions: administer into each nostril benzonatate 100 mg capsule 100 mg PO TID PRN (Reason: cough) Qty: 30 0RF nitroglycerin 400 mcg/spray spray,non-aerosol 1 spray TL Q5M PRN (Reason: chest pain) Qty: 4.9 2RF Rx Instructions: do not exceed 3 doses per episode pioglitazone 30 mg tablet See Rx Instructions .ROUTE .COMPLEX Qty: 30 0RF Dose Instruction: TAKE ONE TABLET BY MOUTH ONCE A DAY Rx Instructions: TAKE ONE TABLET BY MOUTH ONCE A DAY mirtazapine 15 mg tablet See Rx Instructions .ROUTE .COMPLEX Qty: 30 0RF Dose Instruction: TAKE ONE TABLET BY MOUTH AT BEDTIME Rx Instructions: TAKE ONE TABLET BY MOUTH AT BEDTIME tamsulosin 0.4 mg capsule See Rx Instructions .ROUTE .COMPLEX Qty: 30 0RF Dose Instruction: TAKE ONE CAPSULE BY MOUTH ONCE A DAY Rx Instructions: TAKE ONE CAPSULE BY MOUTH ONCE A DAY levothyroxine 25 mcg tablet See Rx Instructions .ROUTE .COMPLEX Qty: 30 0RF Dose Instruction: TAKE ONE TABLET BY MOUTH ONCE A DAY FOR THYROID Rx Instructions: TAKE ONE TABLET BY MOUTH ONCE A DAY FOR THYROID metformin 1,000 mg tablet See Rx Instructions .ROUTE .COMPLEX Qty: 60 0RF Dose Instruction: TAKE ONE TABLET BY MOUTH 2 TIMES A DAY Rx Instructions: TAKE ONE TABLET BY MOUTH 2 TIMES A DAY furosemide [Lasix] 40 mg tablet 40 mg PO DAILY Qty: 30 2RF losartan 50 mg tablet See Rx Instructions .ROUTE .COMPLEX Rx Instructions: TAKE TWO TABLETS (100MG) BY MOUTH ONCE A DAY atorvastatin 40 mg tablet See Rx Instructions .ROUTE .COMPLEX Rx Instructions: TAKE ONE TABLET BY MOUTH ONCE A DAY carvedilol 25 mg tablet 25 mg PO BID sucralfate [Carafate] 1 gram tablet 1 g PO BID glipizide 10 mg tablet See Rx Instructions .ROUTE .COMPLEX Rx Instructions: TAKE ONE TABLET BY MOUTH ONCE A DAY (DME) Blood Glucose Test Strip See Rx Instructions .ROUTE .MEDSUPPLY Rx Instructions: As directed (DME) blood-glucose meter [Blood Glucose Monitoring] Kit See Rx Instructions .ROUTE .MEDSUPPLY Rx Instructions: BID mupirocin 2 % ointment 1 applic topical TID cholecalciferol (vitamin D3) 25 mcg (1,000 unit) capsule 25 mcg PO DAILY insulin glargine [Lantus Solostar U-100 Insulin] 100 unit/mL (3 mL) insulin pen 10 unit SQ HS fluticasone furoate-vilanterol [Breo Ellipta] 100-25 mcg/dose blister with device 1 inh INHALATION DAILY Brilinta 90 mg Tablet 90 mg PO BID 30 Days Qty: 60 0RF Referrals Follow up/Referrals: Riley Bland MD [Primary Care Provider] - See instructions Discharge ED Provider: [place]argent [facility] [place] Stated complaint: RT side pain Mode of Arrival: Ambulatory Source of Information: Patient Limitations: No Limitations Time Seen by Provider: 05/11/23 18:07 Description of Symptoms (Recalled from Triage Doc. by RN): PATIENT C/O RIGHT SIDE PAIN WITH NAUSEA AND DECREASED APPETITE X 1 WEEK. HE ALSO REPORTS AN 8 POUND WEIGHT LOSS OVER THAT PAST 2 WEEKS HEENT Symptoms (Recalled from RN notes): No Resp Symptoms (Recalled from RN notes): No Skin Symptoms (Recalled from RN notes): No MS Symptoms (Recalled from RN notes): No Functional Status (Recalled from RN notes): WNL History of Present Illness Provider Complaint: Patient states that for the last week he has been having pain on the right side of his abdomen and last week had a near syncopal episode and today almost passed out x 2 State that he has been belching
--- NOTE | 2023-05-11 18:30 | XR_ITS ---
PROCEDURE INFORMATION: Exam: XR Chest Exam date and time: 05/11/2023 6:35 PM Age: 63 years old Clinical indication: Pain; Right-sided; Additional info: Right sided pain TECHNIQUE: Imaging protocol: Radiologic exam of the chest. Views: 1 view. Total images: 1 COMPARISON: CR XR CHEST 2V 04/18/2022 4:11 PM FINDINGS: Tubes, catheters and devices: Status post left subclavian cardiac pacer. EKG leads are present. Lungs: There are few scattered calcified granuloma. No consolidation. No pulmonary vascular congestion or edema. Pleural spaces: Unremarkable. No pleural effusion. No pneumothorax. Heart/Mediastinum: Unremarkable. No cardiomegaly. No mediastinal widening or hilar enlargement. Bones/joints: Mild degenerative changes thoracic spine and bilateral shoulders/AC joints. IMPRESSION: No radiographically acute cardiopulmonary process.
[2023-05-11 18:45] VITALS: BP 150/92; PULSE 82; RESP 18; O2SAT 99; BMI 35.5
[2023-05-11 18:48] LABS: Basophils % 0.5 % (0.1-2.0); Eosinophils # 0.1 K/mm3 (0.0-0.4); Eosinophils % 1.6 % (0.1-12.0); Hematocrit 39.7 % (42.0-52.0); Hemoglobin 13.2 g/dL (14.1-18.0); Lymphocytes # 0.8 K/mm3 (0.7-4.5); Lymphocytes % 19.8 % (10-50); Mean Corpuscular HGB Conc 33.3 g/dL (31.8-35.4); Mean Corpuscular Hemoglobin 30.5 pg (27.0-31.2); Mean Corpuscular Volume 91.7 fl (80-94); Mean Platelet Volume 7.9 fl (7.4-10.4); Monocytes # 0.3 K/mm3 (0.1-1.0); Monocytes % 9.1 % (1.7-9.3); Neutrophils # 2.6 K/mm3 (1.8-7.8); Neutrophils % 68.9 % (37.0-80.0); Platelet Count 151 K/mm3 (142-424); Red Blood Count 4.33 M/mm3 (4.60-6.20); Red Cell Distribution Width 14.1 % (11.5-17.5); White Blood Count 3.8 K/mm3 (4.8-10.8)
[2023-05-11 18:54] LABS: INR 1.09 (0.9-1.1); Prothrombin Time 11.7 seconds (10.1-12.5)
[2023-05-11 19:01] LABS: Alanine Aminotransferase 58 U/L (12-78); Albumin Level 4.7 g/dl (3.5-5.0); Albumin/Globulin Ratio 1.3 (1.1-1.8); Alkaline Phosphatase 90 U/L (38-126); Anion Gap 18.7 mEq/L (5-15); Aspartate Amino Transferase 70 U/L (17-59); Bilirubin,Total 1.7 mg/dl (0.2-1.3); Blood Urea Nitrogen 24 mg/dl (9-20); Calcium 9.4 mg/dl (8.4-10.2); Carbon Dioxide 26 mmol/L (22.0-30.0); Chloride 100 mmol/L (98-107); Creatinine Clearance Estimated 73 mL/min (50-200); Estimated Glomerular Filt Rate 47 ml/min (>60); GFR (African American) 57 ML/MIN (>60); Globulin 3.6 g/dL (1.3-3.2); Glucose 161 mg/dl (74-100); Potassium 3.7 mmoL/L (3.5-5.1); Sodium 141 mmol/L (136-145); Total Protein,Serum 8.3 g/dl (6.3-8.2)
[2023-05-11 19:15] LABS: Troponin I < 0.01 ng/ml (0.00-0.034)
--- NOTE | 2023-05-11 19:33 | CT_ITS ---
PROCEDURE INFORMATION: Exam: CT Abdomen And Pelvis With Contrast Exam date and time: 05/11/2023 7:53 PM Age: 63 years old Clinical indication: Abdominal pain; Additional info: Ruq pain TECHNIQUE: Imaging protocol: Computed tomography of the abdomen and pelvis with contrast. Total images: 326 Radiation optimization: All CT scans at this facility use at least one of these dose optimization techniques: automated exposure control; mA and/or kV adjustment per patient size (includes targeted exams where dose is matched to clinical indication); or iterative reconstruction. Contrast material: ISOVUE; Contrast volume: 75 ml; Contrast route: IV; REPORTING DATA: Count of CT and Cardiac NM exams in prior 12 months: This patient has received 0 known CTs and 0 known cardiac nuclear medicine studies in the 12 months prior to the current study. COMPARISON: CT ABDOMEN PELVIS W CON 05/24/2020 11:23 AM FINDINGS: Tubes, catheters and devices: Status post cardiac pacer. Lungs: Lung bases are clear. Calcified right middle lobe granuloma. Heart: Normal heart size. Trace pericardial fluid. Coronary arteries: Coronary artery calcifications. Liver: Slight decreased liver attenuation from phase of contrast or steatosis. Normal size and contour. No mass. Gallbladder and bile ducts: Normal. No calcified stones. No ductal dilation. Pancreas: Fatty interdigitation of the pancreas. No pancreatic mass or acute pancreatitis. Spleen: Normal. No splenomegaly. Adrenal glands: Normal. No mass. Kidneys and ureters: Chronic bilateral perinephric fat stranding. No hydronephrosis, nephrolithiasis, or renal mass. Stomach and bowel: Partially collapsed stomach. Unremarkable duodenum. No ileus or bowel obstruction. Small bowel appears within normal limits. Mild colonic stool burden. No acute colonic inflammatory process. Unremarkable rectum. Appendix: Normal appendix. Intraperitoneal space: Unremarkable. No free air. No significant fluid collection. Vasculature: Abdominal aorta is atherosclerotic but nonaneurysmal. Major abdominal vessels enhance appropriately. Lymph nodes: Benign fat containing bilateral femoral lymph nodes. Urinary bladder: Bladder wall thickening. Reproductive: Moderate prostatomegaly which invaginate the bladder base. Bones/joints: No acute osseous abnormality. Degenerative change in ankylosis bilateral SI joints. Mild degenerative changes bilateral hips. Moderate degenerative changes thoracolumbar spine. Soft tissues: Unremarkable. IMPRESSION: 1. No acute intra-abdominal or pelvic process. 2. Moderate prostatomegaly which invaginate the bladder base. 3. Bladder wall thickening from chronic outlet obstruction or cystitis. 4. Additional chronic and incidental findings.
--- NOTE | 2023-05-11 19:34 | HMH.EDGENADL ---
Discharge Plan Disposition Patient Disposition: Still a Patient Prescriptions Prescriptions: New ondansetron 4 mg tablet,disintegrating 4 mg PO Q6H PRN (Reason: nausea and vomiting) Qty: 10 0RF No Action aspirin [Giselle Low Dose Aspirin] 81 mg tablet,delayed release (DR/EC) 81 mg PO DAILY cetirizine [Zyrtec] 10 mg tablet 10 mg PO DAILY Qty: 30 0RF fluticasone propionate [Flonase Allergy Relief] 50 mcg/actuation spray,suspension 1 spray intranasal DAILY Qty: 16 2RF Rx Instructions: administer into each nostril benzonatate 100 mg capsule 100 mg PO TID PRN (Reason: cough) Qty: 30 0RF nitroglycerin 400 mcg/spray spray,non-aerosol 1 spray TL Q5M PRN (Reason: chest pain) Qty: 4.9 2RF Rx Instructions: do not exceed 3 doses per episode pioglitazone 30 mg tablet See Rx Instructions .ROUTE .COMPLEX Qty: 30 0RF Dose Instruction: TAKE ONE TABLET BY MOUTH ONCE A DAY Rx Instructions: TAKE ONE TABLET BY MOUTH ONCE A DAY mirtazapine 15 mg tablet See Rx Instructions .ROUTE .COMPLEX Qty: 30 0RF Dose Instruction: TAKE ONE TABLET BY MOUTH AT BEDTIME Rx Instructions: TAKE ONE TABLET BY MOUTH AT BEDTIME tamsulosin 0.4 mg capsule See Rx Instructions .ROUTE .COMPLEX Qty: 30 0RF Dose Instruction: TAKE ONE CAPSULE BY MOUTH ONCE A DAY Rx Instructions: TAKE ONE CAPSULE BY MOUTH ONCE A DAY levothyroxine 25 mcg tablet See Rx Instructions .ROUTE .COMPLEX Qty: 30 0RF Dose Instruction: TAKE ONE TABLET BY MOUTH ONCE A DAY FOR THYROID Rx Instructions: TAKE ONE TABLET BY MOUTH ONCE A DAY FOR THYROID metformin 1,000 mg tablet See Rx Instructions .ROUTE .COMPLEX Qty: 60 0RF Dose Instruction: TAKE ONE TABLET BY MOUTH 2 TIMES A DAY Rx Instructions: TAKE ONE TABLET BY MOUTH 2 TIMES A DAY furosemide [Lasix] 40 mg tablet 40 mg PO DAILY Qty: 30 2RF losartan 50 mg tablet See Rx Instructions .ROUTE .COMPLEX Rx Instructions: TAKE TWO TABLETS (100MG) BY MOUTH ONCE A DAY atorvastatin 40 mg tablet See Rx Instructions .ROUTE .COMPLEX Rx Instructions: TAKE ONE TABLET BY MOUTH ONCE A DAY carvedilol 25 mg tablet 25 mg PO BID sucralfate [Carafate] 1 gram tablet 1 g PO BID glipizide 10 mg tablet See Rx Instructions .ROUTE .COMPLEX Rx Instructions: TAKE ONE TABLET BY MOUTH ONCE A DAY (DME) Blood Glucose Test Strip See Rx Instructions .ROUTE .MEDSUPPLY Rx Instructions: As directed (DME) blood-glucose meter [Blood Glucose Monitoring] Kit See Rx Instructions .ROUTE .MEDSUPPLY Rx Instructions: BID mupirocin 2 % ointment 1 applic topical TID cholecalciferol (vitamin D3) 25 mcg (1,000 unit) capsule 25 mcg PO DAILY insulin glargine [Lantus Solostar U-100 Insulin] 100 unit/mL (3 mL) insulin pen 10 unit SQ HS fluticasone furoate-vilanterol [Breo Ellipta] 100-25 mcg/dose blister with device 1 inh INHALATION DAILY Brilinta 90 mg Tablet 90 mg PO BID 30 Days Qty: 60 0RF Referrals Follow up/Referrals: Riley Bland MD [Primary Care Provider] - See instructions Activity Restrictions/Add. Instructions Additional Instructions/Restrictions: Call your family doctor to establish care for this visit to the emergency department and schedule follow-up within 48 hours to ensure improvement. If you have any worsening of your condition or any other concerning signs or symptoms, return to the emergency department or your primary care doctor for further evaluation. Clinical Impressions Clinical Impression: Nausea, Abdominal pain Instructions Patient Instructions: DI for Acute Abdominal Pain Discharge ED Provider: Alber Sargent General Adult [facility] General Chief complaint: Abdominal Pain Stated complaint: RT side pain Time Seen by Provider: 05/11/23 18:07 Mode of Arrival: Ambulatory Source of Information: Patient
[2023-05-11 19:42] LABS: Lactic Acid 1.1 mmol/L (0.7-2.1)
[2023-05-11 19:42] LABS: Lipase 94 U/L (23-300)
--- NOTE | 2023-05-11 20:00 | PC.NURSE ---
PT RETURNED FROM CT
--- NOTE | 2023-05-11 20:09 | ECG_ITS ---
APPROVED REPORT Exam: Resting ECG HR:77 bpm ECG Measurements Heart Rate 77 AXES GA 183 P 72 QRSd 142 QRS -27 QT 392 T 51 QTc 424 Conclusion SINUS RHYTHM RIGHT BUNDLE BRANCH BLOCK [120+ ms QRS DURATION, UPRIGHT V1, 40+ ms S IN I/aVL/V4/V5/V6] ANTEROSEPTAL MYOCARDIAL INFARCTION , OF INDETERMINATE AGE [40+ ms Q WAVE IN V1-V4] ABNORMAL ECG UNCONFIRMED REPORT Electronically signed by : Pito Hatch MD 05/13/2023 07:04:18
[2023-05-11 21:47] LABS: Microscopic, Urine URINE MICROSCOPIC (MICROSCOPIC)
[2023-05-11 21:59] LABS: Appearance,Urine CLEAR (Clear); Bilirubin,Urine Negative (Negative); Blood, Urine Negative (Negative); Color,Urine YELLOW (Yellow); Glucose,Urine (UA) Negative (Negative); Ketones,Urine Negative (Negative); Leukocyte Esterase,Urine Negative (Negative); Nitrate,Urine Negative (Negative); Protein,Urine TRACE (Negative)
[2023-05-11 22:00] LABS: Bacteria,Urine 1+ /lpf; Hyaline Casts,Urine Occasional #/lpf (0); Squamous Epithelial Cell,Urine Occasional #/hpf (0-5)
[2023-05-11 22:17] LABS: Troponin I < 0.01 ng/ml (0.00-0.034)
[2023-05-11 22:30] VITALS: BP 138/77; PULSE 78; RESP 18; TEMP 36.7; O2SAT 98
== END 2023-05-11 22:30 | disposition home or self-care (01) ==
LOC: UTC 17:24 → ER 18:23
PROVIDERS: Emergency Provider Emergency Medicine; PCP Emergency Medicine
DX: R10.11 Right upper quadrant pain (principal); R10.31 Right lower quadrant pain; R11.0 Nausea; I25.2 Old myocardial infarction; E11.9 Type 2 diabetes mellitus without complications; E78.5 Hyperlipidemia, unspecified; Z79.82 Long term (current) use of aspirin; I25.10 Atherosclerotic heart disease of native coronary artery without angina pectoris; I11.0 Hypertensive heart disease with heart failure; I50.42 Chronic combined systolic (congestive) and diastolic (congestive) heart failure; J45.909 Unspecified asthma, uncomplicated
CPT/HCPCS: 36415; 71045; 74177; 80053; 81001; 83605; 83690; 84484; 85025; 85610; 93005; 96361; 96374; 99285; J2405; Q9967

== ENCOUNTER → 2023-07-09 23:30 | Outpatient (CLI) | payer BC, SELFPAY ==
[2023-07-09 18:30] LABS: Alanine Aminotransferase 35 U/L (12-78); Albumin Level 4.4 g/dl (3.5-5.0); Albumin/Globulin Ratio 1.4 (1.1-1.8); Alkaline Phosphatase 101 U/L (38-126); Anion Gap 17.2 mEq/L (5-15); Aspartate Amino Transferase 28 U/L (17-59); Bilirubin,Total 0.9 mg/dl (0.2-1.3); Blood Urea Nitrogen 23 mg/dl (9-20); Carbon Dioxide 26 mmol/L (22.0-30.0); Chloride 102 mmol/L (98-107); Chol/HDL Ratio 4.3 (1-3.5); Cholesterol 158 mg/dl (140-200); Estimated Glomerular Filt Rate 86 ml/min (>60); GFR (African American) 103 ML/MIN (>60); Globulin 3.2 g/dL (1.3-3.2); Glucose 322 mg/dl (74-100); HDL Cholesterol 37 mg/dl (40-60); Potassium 4.2 mmoL/L (3.5-5.1); Sodium 141 mmol/L (136-145); Total Protein,Serum 7.6 g/dl (6.3-8.2); Triglycerides 144 mg/dl (30-150); VLDL Cholesterol 29 mg/dL (0-40)
[2023-07-09 18:41] LABS: Direct LDL Cholesterol 91.43 mg/dL (100-129)
[2023-07-09 18:47] LABS: 25-OH Vitamin D, Total 31.3 ng/mL (30-100)
[2023-07-09 18:58] LABS: Creatinine,Urine Random 91 mg/dL (Not Estab.)
[2023-07-09 19:00] LABS: Prostate Specific Ag Screen 0.5 ng/ml (0.0-4.0)
[2023-07-09 19:03] LABS: Microalbumin/Creatinine Ratio 69.6
[2023-07-09 19:27] LABS: Basophils % 0.3 % (0.1-2.0); Eosinophils # 0.1 K/mm3 (0.0-0.4); Eosinophils % 1.4 % (0.1-12.0); Lymphocytes # 1.9 K/mm3 (0.7-4.5); Lymphocytes % 23.4 % (10-50); Mean Corpuscular HGB Conc 32.7 g/dL (31.8-35.4); Mean Corpuscular Hemoglobin 30.9 pg (27.0-31.2); Mean Corpuscular Volume 94.7 fl (80-94); Mean Platelet Volume 8.6 fl (7.4-10.4); Monocytes # 0.4 K/mm3 (0.1-1.0); Monocytes % 5.4 % (1.7-9.3); Neutrophils # 5.8 K/mm3 (1.8-7.8); Neutrophils % 69.6 % (37.0-80.0); Platelet Count 226 K/mm3 (142-424); Red Blood Count 4.22 M/mm3 (4.60-6.20); Red Cell Distribution Width 14.3 % (11.5-17.5); White Blood Count 8.3 K/mm3 (4.8-10.8)
[2023-07-09 21:21] LABS: Hemoglobin A1C 8.9 % (4.0-6.0)
== END ==
PROVIDERS: PCP Emergency Medicine; Visit Provider Internal Medicine
DX: R42 Dizziness and giddiness (principal); E78.5 Hyperlipidemia, unspecified; E11.42 Type 2 diabetes mellitus with diabetic polyneuropathy; R21 Rash and other nonspecific skin eruption; N18.31 Chronic kidney disease, stage 3a; E66.9 Obesity, unspecified; Z68.36 Body mass index [BMI] 36.0-36.9, adult; Z79.84 Long term (current) use of oral hypoglycemic drugs; Z12.5 Encounter for screening for malignant neoplasm of prostate
CPT/HCPCS: 80053; 80061; 82043; 82306; 82570; 83036; 85025; G0103

== ENCOUNTER → 2023-07-23 13:12 | Outpatient (CLI) | payer BC, SELFPAY ==
--- NOTE | 2023-07-23 13:16 | XR_ITS ---
FINAL REPORT CLINICAL HISTORY: Right foot pain COMPARISON: None FINDINGS: RIGHT FOOT: Three views of the right foot were obtained. There is no acute fracture or dislocation. There is mild degenerative change. There is no soft tissue abnormality. IMPRESSION: Degenerative change without acute bony abnormality. Reviewed, Interpreted and Dictated by Javier Miller III, MD Transcribed by Nat Patel Authenticated and [facility]
--- NOTE | 2023-07-23 13:16 | XR_ITS ---
FINAL REPORT CLINICAL HISTORY: foot pain FINDINGS: LEFT FOOT Three views of the left foot demonstrate no acute fracture or dislocation. The visualized joint spaces are normally aligned. There are mild degenerative changes. Vascular calcifications are noted. The soft tissues are unremarkable. IMPRESSION: No acute bony abnormality. Reviewed, Interpreted and Dictated by Javier Miller III, MD Transcribed by Dodie Davidson Authenticated and [facility]
== END ==
PROVIDERS: PCP Emergency Medicine; Visit Provider Podiatrist
DX: M79.671 Pain in right foot (principal); M79.672 Pain in left foot
CPT/HCPCS: 73630

== ENCOUNTER → 2023-08-14 09:30 | Outpatient (CLI) | payer BC, SELFPAY ==
--- NOTE | 2023-08-14 09:30 | CA_ITS ---
FINAL REPORT TECHNIQUE: Srivastava scale, color and spectral doppler images of the bilateral carotid arteries were obtained. CLINICAL HISTORY: SYNCOPE,DIZZINESS,HTN COMPARISON: None FINDINGS: Peak systolic velocity in the right internal carotid artery is 101 cm/sec. The internal carotid to common carotid artery ratio is 1.32. There is no significant carotid artery stenosis and mild plaque formation. The right vertebral artery is normal in direction. Peak systolic velocity in the left internal carotid artery is 87 cm/sec. The internal carotid to common carotid artery ratio is 1. There is mild carotid artery stenosis and no significant plaque formation. The left vertebral artery is normal in direction. IMPRESSION: No ultrasound evidence of hemodynamically significant carotid artery stenosis. Normal peak systolic velocities and normal internal to common carotid artery ratios bilaterally. Reviewed, Interpreted and Dictated by Darlin Taylor MD Transcribed by Tamiko Apodaca Authenticated and [facility]
== END ==
PROVIDERS: PCP Emergency Medicine; Visit Provider Physician Assistant
DX: R42 Dizziness and giddiness (principal); R55 Syncope and collapse; I11.0 Hypertensive heart disease with heart failure; I50.22 Chronic systolic (congestive) heart failure; E78.5 Hyperlipidemia, unspecified; R94.31 Abnormal electrocardiogram [ECG] [EKG]; Z95.5 Presence of coronary angioplasty implant and graft; Z95.810 Presence of automatic (implantable) cardiac defibrillator
CPT/HCPCS: 93270; 93880

== ENCOUNTER 2023-09-12 16:19 | Emergency (ER) | payer BC, SELFPAY ==
--- NOTE | 2023-09-12 16:26 | EXP.UTC ---
Discharge Plan Disposition Patient Disposition: Home, Self-Care Condition: Good Prescriptions Prescriptions: New azithromycin [Zithromax] 250 mg tablet 250 mg PO UD DOSE PK Qty: 6 0RF Rx Instructions: Take two (2) tablets today, then one (1) tablet days #2 thru #5 benzonatate [benzonatate] 100 mg capsule 100 mg PO TIDP PRN (Reason: Cough) Qty: 30 0RF guaifenesin [Mucinex] 600 mg tablet extended release 12hr 600 - 1,200 mg PO BIDP PRN (Reason: Congestion) Qty: 30 0RF No Action atorvastatin 40 mg tablet 40 mg PO HS Qty: 90 3RF losartan 50 mg tablet 100 mg PO DAILY 90 Days Qty: 180 3RF aspirin [Giselle Low Dose Aspirin] 81 mg tablet,delayed release (DR/EC) 81 mg PO DAILY fluticasone propionate [Flonase Allergy Relief] 50 mcg/actuation spray,suspension 1 spray intranasal DAILY Qty: 16 2RF Rx Instructions: administer into each nostril losartan 100 mg tablet PO cholecalciferol (vitamin D3) 25 mcg (1,000 unit) tablet PO nitroglycerin 400 mcg/spray spray,non-aerosol 1 spray TL Q5M PRN (Reason: chest pain) Qty: 4.9 2RF Rx Instructions: do not exceed 3 doses per episode cholecalciferol (vitamin D3) 25 mcg (1,000 unit) capsule 25 mcg PO DAILY Qty: 90 3RF glipizide 10 mg tablet See Rx Instructions .ROUTE .COMPLEX Qty: 90 0RF Dose Instruction: TAKE ONE TABLET BY MOUTH ONCE A DAY Rx Instructions: TAKE ONE TABLET BY MOUTH ONCE A DAY cetirizine 10 mg tablet See Rx Instructions .ROUTE .COMPLEX Qty: 90 0RF Dose Instruction: TAKE ONE TABLET BY MOUTH ONCE A DAY Rx Instructions: TAKE ONE TABLET BY MOUTH ONCE A DAY furosemide 40 mg tablet See Rx Instructions .ROUTE .COMPLEX Qty: 90 4RF Dose Instruction: TAKE ONE TABLET BY MOUTH ONCE A DAY Rx Instructions: TAKE ONE TABLET BY MOUTH ONCE A DAY pioglitazone 30 mg tablet See Rx Instructions .ROUTE .COMPLEX Qty: 30 0RF Dose Instruction: TAKE ONE TABLET BY MOUTH ONCE A DAY Rx Instructions: TAKE ONE TABLET BY MOUTH ONCE A DAY mirtazapine 15 mg tablet See Rx Instructions .ROUTE .COMPLEX Qty: 30 0RF Dose Instruction: TAKE ONE TABLET BY MOUTH AT BEDTIME Rx Instructions: TAKE ONE TABLET BY MOUTH AT BEDTIME metformin 1,000 mg tablet See Rx Instructions .ROUTE .COMPLEX Qty: 60 0RF Dose Instruction: TAKE ONE TABLET BY MOUTH 2 TIMES A DAY Rx Instructions: TAKE ONE TABLET BY MOUTH 2 TIMES A DAY tamsulosin 0.4 mg capsule See Rx Instructions .ROUTE .COMPLEX Qty: 30 0RF Dose Instruction: TAKE ONE CAPSULE BY MOUTH ONCE A DAY Rx Instructions: TAKE ONE CAPSULE BY MOUTH ONCE A DAY levothyroxine 25 mcg tablet See Rx Instructions .ROUTE .COMPLEX Qty: 30 0RF Dose Instruction: TAKE ONE TABLET BY MOUTH ONCE A DAY FOR THYROID Rx Instructions: TAKE ONE TABLET BY MOUTH ONCE A DAY FOR THYROID carvedilol 25 mg tablet 25 mg PO BID sucralfate [Carafate] 1 gram tablet 1 g PO BID (DME) Blood Glucose Test Strip See Rx Instructions .ROUTE .MEDSUPPLY Rx Instructions: As directed (DME) blood-glucose meter [Blood Glucose Monitoring] Kit See Rx Instructions .ROUTE .MEDSUPPLY Rx Instructions: BID mupirocin 2 % ointment 1 applic topical TID insulin glargine [Lantus Solostar U-100 Insulin] 100 unit/mL (3 mL) insulin pen 10 unit SQ HS Brilinta 90 mg Tablet 90 mg PO BID 30 Days Qty: 60 0RF fluticasone furoate-vilanterol [Breo Ellipta] 100-25 mcg/dose blister with device 1 inh INHALATION DAILY PRN (Reason: Allergy symptoms) ondansetron 4 mg tablet,disintegrating 4 mg PO Q6H PRN (Reason: nausea and vomiting) Qty: 10 0RF Referrals Follow up/Referrals: Jose Guadalupe Nielson DO [Primary Care Provider] - See instructions Activity Restrictions/Add. Instructions Additional Instructions/Restrictions: Drink plenty of fluids.
[2023-09-12 16:30] VITALS: BP 114/85; PULSE 76; RESP 18; TEMP 36.5; O2SAT 96; BMI 36.6
[2023-09-12 16:38] LABS: UTC Strep Screen (Rapid) Negative (Negative)
[2023-09-12 17:27] VITALS: BP 114/85; PULSE 76; RESP 18; TEMP 36.5; O2SAT 96
== END 2023-09-12 17:27 | disposition home or self-care (01) ==
PROVIDERS: Emergency Provider Nurse Practitioner Family; PCP Internal Medicine
DX: J01.90 Acute sinusitis, unspecified (principal); J02.9 Acute pharyngitis, unspecified; R05.9 Cough, unspecified; R09.89 Other specified symptoms and signs involving the circulatory and respiratory systems; R09.81 Nasal congestion; M53.81 Other specified dorsopathies, occipito-atlanto-axial region; B34.9 Viral infection, unspecified; I11.0 Hypertensive heart disease with heart failure; I50.22 Chronic systolic (congestive) heart failure; E11.9 Type 2 diabetes mellitus without complications; I25.10 Atherosclerotic heart disease of native coronary artery without angina pectoris; E78.5 Hyperlipidemia, unspecified; J45.909 Unspecified asthma, uncomplicated; Z95.810 Presence of automatic (implantable) cardiac defibrillator; Z79.4 Long term (current) use of insulin; Z79.84 Long term (current) use of oral hypoglycemic drugs
CPT/HCPCS: 87635; 87880; 99212; 99214; G0463

== ENCOUNTER → 2023-09-24 12:11 | Outpatient (CLI) | payer BC, SELFPAY ==
--- NOTE | 2023-09-24 12:16 | XR_ITS ---
FINAL REPORT CLINICAL HISTORY: cough FINDINGS: 2 views of the chest were obtained . A pacemaker is in place. The heart is normal in size. The mediastinum is within normal limits. The lungs are clear. There is no pneumothorax. Osseous structures are unremarkable. IMPRESSION: No acute cardiopulmonary process. Reviewed, Interpreted and Dictated by Ricky Reyes MD Transcribed by Dodie Davidson Authenticated and [facility]
[2023-09-24 18:25] LABS: Influenza A, PCR Not Detected (NotDetected); Influenza B, PCR Not Detected (NotDetected)
[2023-09-24 21:23] LABS: Coronavirus 19, PCR Detected (NotDetected)
== END ==
PROVIDERS: PCP Physician Assistant; Visit Provider Student in an Organized Health Care Education/Training Program
DX: R05.9 Cough, unspecified (principal); U07.1 COVID-19
CPT/HCPCS: 71046; 87636

== ENCOUNTER 2023-10-14 12:01 | Emergency (ER) | payer BC, SELFPAY ==
[2023-10-14 13:20] VITALS: BP 118/72; PULSE 78; RESP 18; TEMP 36.9; O2SAT 98; BMI 34.4
--- NOTE | 2023-10-14 13:39 | ED_ITS ---
Discharge Plan Disposition Patient Disposition: Home, Self-Care Condition: Good Prescriptions Prescriptions: New guaifenesin [Mucinex] 600 mg tablet extended release 12hr 1,200 mg PO BID PRN (Reason: cough) Qty: 20 0RF azithromycin [Zithromax Z-Jorge] 250 mg tablet See Rx Instructions .ROUTE .COMPLEX 5 Days Qty: 6 0RF Rx Instructions: For 250 mg dose pack: take 500 mg today (day 1), then 250 mg for 4 days (days 2-5) No Action furosemide 40 mg tablet 40 mg PO DAILY atorvastatin 40 mg tablet 40 mg PO DAILY carvedilol 25 mg tablet 25 mg PO DAILY cetirizine 10 mg tablet 10 mg PO DAILY glipizide 10 mg tablet 10 mg PO DAILY levothyroxine 25 mcg tablet 25 mcg PO DAILY tamsulosin 0.4 mg capsule 0.4 mg PO DAILY metformin 1,000 mg tablet 1,000 mg PO DAILY mirtazapine 15 mg tablet 15 mg PO DAILY pioglitazone 30 mg tablet 30 mg PO DAILY losartan 100 mg tablet 100 mg PO DAILY cholecalciferol (vitamin D3) 25 mcg (1,000 unit) tablet 25 mcg PO DAILY Brilinta 90 mg tablet 90 mg PO DAILY Referrals Follow up/Referrals: Yessenia Horner PA [Primary Care Provider] - See instructions Activity Restrictions/Add. Instructions Additional Instructions/Restrictions: * Start antibiotic today. Be sure to complete entire prescription even if feeling better * Monitor temp. Tylenol every 4 hours as needed and / or ibuprofen every 6 hours as needed ( As long as your primary care physician has told you that it ok to take both. For fever/aches/pains ER if no less than 101 despite Tylenol or Motrin * Humidifier/vaporizer or hot steamy shower * Mucinex for your cough Be sure to drink lots of water. Follow up IMMEDIATELY for new or worsening of symptoms OR no noticeable improvement over the next 48-72 hours. 911 immediately for any life threatening symptoms such as chest pain or difficulty breathing Clinical Impressions Clinical Impression: Bronchitis Sinusitis Qualifiers: Sinusitis location: unspecified location Chronicity: unspecified Qualified Code(s): J32.9 - Chronic sinusitis, unspecified Instructions Patient Instructions: Acute Bronchitis Discharge ED Provider: Luzmaria Jacobo [facility] General Stated complaint: congestion, cough Mode of Arrival: Ambulatory Source of Information: Patient Limitations: No Limitations Time Seen by Provider: 10/14/23 13:39 Description of Symptoms (Recalled from Triage Doc. by RN): PATIENT C/O COUGH, SNEEZING, AND CONGESTION X 1 MONTH HEENT Symptoms (Recalled from RN notes): Yes Resp Symptoms (Recalled from RN notes): Yes Skin Symptoms (Recalled from RN notes): No MS Symptoms (Recalled from RN notes): No Functional Status (Recalled from RN notes): WNL History of Present Illness Provider Complaint: Patient states that he had COVID about a month ago and has been sick on and off since States that he has had a cough that is productive at times, sinus congestion and pressure and sneezing States today he was still having cough and sinus congestion so he came in to get checked States feels like it did when he had bronchitis Related Data Home Medications Medication Instructions Recorded Confirmed atorvastatin 40 mg tablet 40 mg PO DAILY 10/14/23 10/14/23 carvedilol 25 mg tablet 25 mg PO DAILY 10/14/23 10/14/23 cetirizine 10 mg tablet 10 mg PO DAILY 10/14/23 10/14/23 cholecalciferol (vitamin D3) 25 25 mcg PO DAILY 10/14/23 10/14/23 mcg (1,000 unit) tablet furosemide 40 mg tablet 40 mg PO DAILY 10/14/23 10/14/23 glipizide 10 mg tablet 10 mg PO DAILY 10/14/23 10/14/23 levothyroxine 25 mcg tablet 25 mcg PO DAILY 10/14/23 10/14/23 losartan 100 mg tablet 100 mg PO DAILY 10/14/23 10/14/23 metformin 1,000 mg tablet 1,000 mg PO DAILY 10/14/23 10/14/23 mirtazapine 15 mg tablet 15 mg PO DAILY 10/14/23 10/14/23 pioglitazone 30 mg tablet 30 mg PO DAILY 10/14/23 10/14/23 tamsulosin 0.4 mg capsule 0.4 mg PO DAILY 10/14/23 10/14/23 ticagrelor 90 mg tablet (Brilinta) 90 mg PO DAILY 10/14/23 10/14/23 Previous Rx's Medication Instructions Recorded azithromycin 250 mg tablet See Rx Instructions PO .COMPLEX 5 10/14/23 (Zithromax Z-Jorge) days #6 tabs guaifenesin 600 mg tablet, 1,200 mg PO BID PRN cough #20 tabs 10/14/23 extended release 12 hr (Mucinex) Allergies Allergy/AdvReac Type Severity Reaction Status Date / Time lisinopril AdvReac Severe cough Verified 10/10/23 14:37 dulaglutide [From Trulicity] AdvReac Verified 10/10/23 14:37 ozempic AdvReac Intermediate Difficulty Uncoded 10/10/23 15:04 Breathing Worker's Comp Is this a Worker's Comp case?: No [facility] Disclaimer: The information contained in this section may have been updated after the patient was seen, as this information can be updated by other users. Medical History Abnormal cardiovascular stress test Automatic implantable cardiac defibrillator in situ CAD (coronary artery disease) Chronic systolic heart failure Coronary arteriosclerosis Crushing injury of left leg Diabetes mellitus Hyperlipidemia We will check a nonfasting lipid panel today. Ky is on atorvastatin 40 mg/day. Hypertensive heart disease Ky is on carvedilol furosemide losartan for his hypertension and cardiac issues. He is following with Dr. Reeves in his office who are following and providing these medications. LV (left ventricular) mural thrombus Obesity (BMI 30-39.9) Reactive airway disease with acute exacerbation Surgical History History of colonoscopy Stented coronary artery Social History Smoking Status: Never smoker second hand exposure: No alcohol intake: never substance use type: denies use current occupational status: employed Travel in the last 8 weeks: None household members: family housing: house ROS Obtained: Yes All systems reviewed & no additional complaints except as documented and Yes Systems reviewed as appropriate & no additional complaints except as documented Constitutional Constitutional: Reports system reviewed and no additional complaints, except as documented and Reports as per HPI ENT Ears, Nose, Mouth, and Throat: Reports system reviewed and no additional complaints, except as documented, Reports as per HPI, Reports nasal congestion and Reports sinus pressure Cardiovascular Cardiovascular: Reports system reviewed and no additional complaints, except as documented and Reports as per HPI Respiratory Respiratory: Reports system reviewed and no additional complaints, except as documented, Reports as per HPI, Denies shortness of breath and Reports cough Gastrointestinal Gastrointestingal: Reports system reviewed and no additional complaints, except as documented and as per HPI Physical Exam General General appearance: alert and in no apparent distress ENT ENT exam: Present mucous membranes moist Expanded ENT Exam Nose exam: Present sinus tenderness Throat exam: Present other (Pharyngeal erythema noted with PND) Respiratory Respiratory exam: Present normal lung sounds bilaterally; Absent respiratory distress or wheezes Cardiovascular Cardiovascular exam: Present regular rate, normal rhythm and normal heart sounds Neurological Exam Neurological exam: Present alert, oriented X3 and normal gait Medical Decision Making Gaurav Inquiry Pt receiving controlled substance: No Gaurav was queried for this patient: No Vital Signs: 10/14/23 13:20 Temperature 98.5 F Temperature Source Oral Pulse Rate [Right Brachial] 78 Respiratory Rate 18 Blood Pressure [Right Arm] 118/72 Blood Pressure Mean [Right Arm] 87 Blood Pressure Source [Right Arm] Automatic Cuff Blood Pressure Position [Right Arm] Sitting 02 Sat by Pulse Oximetry 98 Oxygen Delivery Method Room Air Lab Data Lab results reviewed: Yes I reviewed the patient's lab results. Medical Decision Narrative: Patient states that he has take azithromycin in the past without complications or reactions
[2023-10-14 13:52] VITALS: BP 118/72; PULSE 78; RESP 18; TEMP 36.9; O2SAT 98
[2023-10-14 13:56] LABS: UTC Strep Screen (Rapid) Negative (Negative)
[2023-10-14 13:57] LABS: UTC Influenza A Antigen Negative (Negative); UTC Influenza B Antigen Negative (Negative)
== END 2023-10-14 14:00 | disposition home or self-care (01) ==
PROVIDERS: Emergency Provider Nurse Practitioner; PCP Physician Assistant
DX: J20.9 Acute bronchitis, unspecified (principal); J01.90 Acute sinusitis, unspecified; R05.9 Cough, unspecified; R09.81 Nasal congestion; E11.9 Type 2 diabetes mellitus without complications; J45.909 Unspecified asthma, uncomplicated; I11.9 Hypertensive heart disease without heart failure; E78.5 Hyperlipidemia, unspecified; I25.10 Atherosclerotic heart disease of native coronary artery without angina pectoris; Z95.5 Presence of coronary angioplasty implant and graft; Z79.84 Long term (current) use of oral hypoglycemic drugs
CPT/HCPCS: 87804; 87880; 99212; 99214; G0463

== ENCOUNTER 2023-11-30 20:14 | Outpatient (CLI) | payer BC, SELFPAY ==
[2023-11-30 19:45] LABS: Basophils # 0.1 K/mm3 (0-0.2); Basophils % 0.5 % (0.1-2.0); Eosinophils # 0.1 K/mm3 (0.0-0.4); Eosinophils % 0.8 % (0.1-12.0); Hematocrit 41.4 % (42.0-52.0); Hemoglobin 13.6 g/dL (14.1-18.0); Lymphocytes # 2.2 K/mm3 (0.7-4.5); Lymphocytes % 24.4 % (10-50); Mean Corpuscular HGB Conc 32.8 g/dL (31.8-35.4); Mean Corpuscular Hemoglobin 32.7 pg (27.0-31.2); Mean Corpuscular Volume 99.6 fl (80-94); Mean Platelet Volume 9.4 fl (7.4-10.4); Monocytes # 0.6 K/mm3 (0.1-1.0); Monocytes % 6.2 % (1.7-9.3); Neutrophils % 68.1 % (37.0-80.0); Platelet Count 227 K/mm3 (142-424); Red Blood Count 4.15 M/mm3 (4.60-6.20); Red Cell Distribution Width 13.9 % (11.5-17.5); White Blood Count 8.9 K/mm3 (4.8-10.8)
[2023-11-30 19:46] LABS: Iron 94 ug/dL (49-181)
[2023-11-30 19:50] LABS: Alanine Aminotransferase 27 U/L (12-78); Albumin Level 4.6 g/dl (3.5-5.0); Albumin/Globulin Ratio 1.6 (1.1-1.8); Alkaline Phosphatase 106 U/L (38-126); Anion Gap 15.2 mEq/L (5-15); Aspartate Amino Transferase 26 U/L (17-59); Blood Urea Nitrogen 22 mg/dl (9-20); Calcium 9.5 mg/dl (8.4-10.2); Carbon Dioxide 26 mmol/L (22.0-30.0); Chloride 101 mmol/L (98-107); Chol/HDL Ratio 3.5 (1-3.5); Cholesterol 146 mg/dl (140-200); Estimated Glomerular Filt Rate 98 ml/min (>60); GFR (African American) 119 ML/MIN (>60); Globulin 2.8 g/dL (1.3-3.2); Glucose 348 mg/dl (74-100); HDL Cholesterol 42 mg/dl (40-60); Potassium 4.2 mmoL/L (3.5-5.1); Sodium 138 mmol/L (136-145); Total Protein,Serum 7.4 g/dl (6.3-8.2); Triglycerides 97 mg/dl (30-150); VLDL Cholesterol 19 mg/dL (0-40)
[2023-11-30 19:55] LABS: Total Iron Binding Capacity 330 ug/dL (261-462)
[2023-11-30 20:06] LABS: 25-OH Vitamin D, Total 24.9 ng/mL (30-100)
[2023-11-30 20:15] LABS: Direct LDL Cholesterol 75.87 mg/dL (100-129)
[2023-11-30 20:19] LABS: Thyroid Stimulating Hormone 1.53 uIU/mL (0.465-4.68)
[2023-11-30 20:22] LABS: Ferritin 131 ng/ml (17.9-464)
[2023-11-30 20:42] LABS: Hemoglobin A1C 9.8 % (4.0-6.0)
[2023-11-30 20:55] LABS: Vitamin B12 612 pg/mL (239-931)
[2023-11-30 21:00] LABS: Folate > 20.00 ng/mL
[2023-12-08 05:53] LABS: Free Testosterone (Direct) 5.5 pg/mL (6.6-18.1); Testosterone, Total, LC/MS 386.7 ng/dL (264.0-916.0)
== END 2023-11-30 23:59 ==
LOC: LAB.DROPOF 20:14
PROVIDERS: PCP Student in an Organized Health Care Education/Training Program; Visit Provider Student in an Organized Health Care Education/Training Program
DX: I25.10 Atherosclerotic heart disease of native coronary artery without angina pectoris (principal); R53.83 Other fatigue; E11.9 Type 2 diabetes mellitus without complications; E55.9 Vitamin D deficiency, unspecified; E66.9 Obesity, unspecified; Z68.33 Body mass index [BMI] 33.0-33.9, adult; Z79.84 Long term (current) use of oral hypoglycemic drugs; Z79.899 Other long term (current) drug therapy; D64.9 Anemia, unspecified
CPT/HCPCS: 80053; 80061; 82306; 82607; 82728; 82746; 83036; 83540; 83550; 84443; 85025

== ENCOUNTER 2023-12-06 13:02 | Outpatient (CLI) | payer BC, SELFPAY | END 2023-12-06 23:59 | LOC: DIETICIAN 13:05 | PROVIDERS: PCP Physician Assistant; Visit Provider Student in an Organized Health Care Education/Training Program | DX: E11.9 Type 2 diabetes mellitus without complications (principal); Z79.84 Long term (current) use of oral hypoglycemic drugs | CPT/HCPCS: 97802 ==

== ENCOUNTER 2023-12-12 12:19 | Outpatient (CLI) | payer BC, SELFPAY ==
[2023-12-12 13:20] VITALS: PULSE 61; PULSE 67
[2023-12-12] MEDS: ALBUTEROL 0.083% 2.5 MG/3 ML NEB IH (13:20)
== END 2023-12-12 23:59 ==
LOC: RT 12:21
PROVIDERS: PCP Student in an Organized Health Care Education/Training Program; Visit Provider Student in an Organized Health Care Education/Training Program
DX: R06.09 Other forms of dyspnea (principal)
CPT/HCPCS: 94060; 94618; 94640; 94726; 94729

== ENCOUNTER 2024-02-05 14:16 | Outpatient (CLI) | payer BC, SELFPAY ==
[2024-02-05 18:47] LABS: Basophils % 0.5 % (0.1-2.0); Eosinophils # 0.1 K/mm3 (0.0-0.4); Eosinophils % 1.5 % (0.1-12.0); Lymphocytes # 1.8 K/mm3 (0.7-4.5); Mean Corpuscular HGB Conc 32.4 g/dL (31.8-35.4); Mean Corpuscular Hemoglobin 31.6 pg (27.0-31.2); Mean Corpuscular Volume 97.4 fl (80-94); Monocytes # 0.4 K/mm3 (0.1-1.0); Monocytes % 5.7 % (1.7-9.3); Neutrophils # 4.4 K/mm3 (1.8-7.8); Neutrophils % 66.3 % (37.0-80.0); Platelet Count 193 K/mm3 (142-424); Red Cell Distribution Width 14.6 % (11.5-17.5); Reticulocyte % (Auto) 1.8 % (0.9-3.2); White Blood Count 6.7 K/mm3 (4.8-10.8)
[2024-02-05 19:10] LABS: Chloride 105 mmol/L (98-107)
[2024-02-05 19:11] LABS: Potassium 4.2 mmoL/L (3.5-5.1); Sodium 137 mmol/L (136-145)
[2024-02-05 19:13] LABS: Alanine Aminotransferase 29 U/L (12-78); Amylase 53 U/L (30-110); Anion Gap 10.2 mEq/L (5-15); Aspartate Amino Transferase 31 U/L (17-59); Blood Urea Nitrogen 16 mg/dl (9-20); Carbon Dioxide 26 mmol/L (22.0-30.0); Estimated Glomerular Filt Rate 114 ml/min (>60); GFR (African American) 138 ML/MIN (>60)
[2024-02-05 19:14] LABS: Albumin Level 4.1 g/dl (3.5-5.0); Albumin/Globulin Ratio 1.6 (1.1-1.8); Alkaline Phosphatase 75 U/L (38-126); Calcium 9.4 mg/dl (8.4-10.2); Globulin 2.6 g/dL (1.3-3.2); Glucose 138 mg/dl (74-100); Lipase 65 U/L (23-300); Total Protein,Serum 6.7 g/dl (6.3-8.2)
[2024-02-05 20:49] LABS: Hemoglobin A1C 9.9 % (4.0-6.0)
[2024-02-07 18:17] LABS: Peripheral Smear Review Scanned Result
== END 2024-02-05 23:59 | disposition home or self-care (01) ==
LOC: LAB.DROPOF 02-06 13:34
PROVIDERS: PCP Physician Assistant; Visit Provider Student in an Organized Health Care Education/Training Program
DX: D64.9 Anemia, unspecified (principal); R10.11 Right upper quadrant pain; E11.9 Type 2 diabetes mellitus without complications; Z79.84 Long term (current) use of oral hypoglycemic drugs
CPT/HCPCS: 80053; 82150; 83036; 83690; 85025; 85044

== ENCOUNTER 2024-02-11 09:16 | Outpatient (CLI) | payer BC, SELFPAY ==
--- NOTE | 2024-02-11 09:40 | US_ITS ---
FINAL REPORT CLINICAL HISTORY: ruq abd pain x 2 months COMPARISON: None FINDINGS: Sonographic images of the right upper quadrant were obtained. The pancreas is partially obscured. There is diffuse fatty infiltration of the liver. The gallbladder appears normal without evidence of gallstones.There is no evidence of biliary ductal dilatation.The common duct measures 3 mm. There is a questionable partly cystic mass in the right mid kidney measuring 1.7 cm in size. IMPRESSION: Fatty infiltration of the liver. No definite gallstones are identified. Partially cystic mass right mid kidney 1.7 cm in size. Recommend renal mass protocol CT for further evaluation. Reviewed, Interpreted and Dictated by Javier Miller III, MD Transcribed by Tamiko Apodaac Authenticated and [facility]
== END 2024-02-11 23:59 | disposition home or self-care (01) ==
LOC: RAD 09:17
PROVIDERS: PCP Student in an Organized Health Care Education/Training Program; Visit Provider Student in an Organized Health Care Education/Training Program
DX: R10.11 Right upper quadrant pain (principal)
CPT/HCPCS: 76705

== ENCOUNTER 2024-02-14 18:24 | Emergency (ER) | payer BC, SELFPAY ==
--- NOTE | 2024-02-14 18:29 | CT_ITS ---
PROCEDURE INFORMATION: Exam: CT Head Without Contrast Exam date and time: 02/14/2024 6:42 PM Age: 64 years old Clinical indication: Injury or trauma; Fall; Blunt trauma (contusions or hematomas); Consciousness not specified; Additional info: Fall posterior head TECHNIQUE: Imaging protocol: Computed tomography of the head without contrast. Radiation optimization: All CT scans at this facility use at least one of these dose optimization techniques: automated exposure control; mA and/or kV adjustment per patient size (includes targeted exams where dose is matched to clinical indication); or iterative reconstruction. COMPARISON: CT HEAD/BRAIN WO CON 05/12/2019 9:29 PM FINDINGS: Brain: No intracranial hemorrhage. Mild atrophic changes of the ventricles and subarachnoid spaces. Mild chronic small-vessel ischemic changes noted. No mass, mass effect or midline shift. Intracranial atherosclerotic changes are noted. Cerebral ventricles: See Brain finding. Paranasal sinuses: See Bones finding. Mastoid air cells: Visualized mastoid air cells are well aerated. Bones: Incidental completely opacified left sphenoid. Sinuses otherwise clear. No fluid levels. Soft tissues: Unremarkable. IMPRESSION: 1. Incidental left sphenoid sinus disease. 2. Otherwise stable noncontrast CT brain with chronic changes. No acute intracranial abnormality.
--- NOTE | 2024-02-14 18:29 | CT_ITS ---
PROCEDURE INFORMATION: Exam: CT Cervical Spine Without Contrast Exam date and time: 02/14/2024 6:44 PM Age: 64 years old Clinical indication: Injury or trauma; Fall; Blunt trauma; Additional info: Fall posterior trauma TECHNIQUE: Imaging protocol: Computed tomography of the cervical spine without contrast. Radiation optimization: All CT scans at this facility use at least one of these dose optimization techniques: automated exposure control; mA and/or kV adjustment per patient size (includes targeted exams where dose is matched to clinical indication); or iterative reconstruction. COMPARISON: CT HEAD/BRAIN WO CON 02/14/2024 6:42 PM FINDINGS: Bones: No acute fracture. Normal alignment. No significant disc bulge or herniation. No severe spinal canal stenosis. No significant neural foraminal narrowing. Lungs: Lung apices are normal. Soft tissues: Unremarkable. IMPRESSION: No acute findings.
--- NOTE | 2024-02-14 18:30 | ED_ITS ---
Discharge Plan Disposition Patient Disposition: Home, Self-Care Chief Complaint: Trauma Prescriptions Prescriptions: No Action pantoprazole 20 mg tablet,delayed release (DR/EC) 20 mg PO DAILY Qty: 60 0RF mupirocin 2 % ointment 1 applic topical BID 21 Days Qty: 22 1RF (DME) Dexcom G7 Sensor Device See Rx Instructions .Route Qty: 3 3RF Rx Instructions: As directed (DME) Dexcom G7 [employer] Misc See Rx Instructions .Route Qty: 1 0RF Rx Instructions: As directed glipizide 5 mg tablet 5 mg PO DAILY Qty: 90 1RF carvedilol 25 mg tablet See Rx Instructions .ROUTE .COMPLEX Qty: 180 3RF Dose Instruction: TAKE ONE TABLET BY MOUTH 2 TIMES A DAY Rx Instructions: TAKE ONE TABLET BY MOUTH 2 TIMES A DAY tamsulosin 0.4 mg capsule See Rx Instructions .ROUTE .COMPLEX Qty: 30 4RF Dose Instruction: TAKE ONE CAPSULE BY MOUTH ONCE A DAY Rx Instructions: TAKE ONE CAPSULE BY MOUTH ONCE A DAY levothyroxine 25 mcg tablet See Rx Instructions .ROUTE .COMPLEX Qty: 30 4RF Dose Instruction: TAKE ONE TABLET BY MOUTH ONCE A DAY FOR THYROID Rx Instructions: TAKE ONE TABLET BY MOUTH ONCE A DAY FOR THYROID mirtazapine 15 mg tablet See Rx Instructions .ROUTE .COMPLEX Qty: 30 4RF Dose Instruction: TAKE ONE TABLET BY MOUTH AT BEDTIME Rx Instructions: TAKE ONE TABLET BY MOUTH AT BEDTIME metformin 1,000 mg tablet See Rx Instructions .ROUTE .COMPLEX Qty: 60 4RF Dose Instruction: TAKE ONE TABLET BY MOUTH 2 TIMES A DAY Rx Instructions: TAKE ONE TABLET BY MOUTH 2 TIMES A DAY pioglitazone 30 mg tablet See Rx Instructions .ROUTE .COMPLEX Qty: 30 4RF Dose Instruction: TAKE ONE TABLET BY MOUTH ONCE A DAY Rx Instructions: TAKE ONE TABLET BY MOUTH ONCE A DAY Januvia 100 mg tablet 100 mg PO DAILY Qty: 90 3RF furosemide 40 mg tablet 40 mg PO DAILY atorvastatin 40 mg tablet 40 mg PO DAILY cetirizine 10 mg tablet 10 mg PO DAILY glipizide 10 mg tablet 10 mg PO DAILY losartan 100 mg tablet 100 mg PO DAILY cholecalciferol (vitamin D3) 25 mcg (1,000 unit) tablet 25 mcg PO DAILY guaifenesin [Mucinex] 600 mg tablet extended release 12hr 1,200 mg PO BID PRN (Reason: cough) Qty: 20 0RF Referrals Follow up/Referrals: Evelyne Alejandro PA [Primary Care Provider] - See instructions Activity Restrictions/Add. Instructions Additional Instructions/Restrictions: At this time it was felt you are safe to be discharged home. If new or worsening symptoms please do not hesitate to return the emergency department. If symptoms persist please follow-up with your family doctor as you are able. For pain please take Tylenol and ibuprofen, it is okay to take them at the same time. Clinical Impressions Clinical Impression: Concussion, Fall Instructions Patient Instructions: DI for Concussion Discharge ED Provider: Erik Cerda General Adult HPI General Chief complaint: Trauma Stated complaint: [id number] fall head lac Time Seen by Provider: 02/14/24 18:26 History of Present Illness HPI narrative: Patient is a 64-year-old male not on anticoagulation who presents emergency department for evaluation of traumatic injury sustained in a fall. Patient was attempting to get a ramp out of the back of his vehicle when he felt posteriorly from the truck bed striking his head, transient loss of consciousness for a few seconds. He is complaining only of posterior head pain, denies mid back pain, low back pain, extremity pain, abdominal pain, chest pain. Tdap is up-to-date. No other acute complaints at this time. Related Data Home Medications Medication Instructions Recorded Confirmed atorvastatin 40 mg tablet 40 mg PO DAILY 10/14/23 02/05/24 cetirizine 10 mg tablet 10 mg PO DAILY 10/14/23 02/05/24 cholecalciferol (vitamin D3) 25 25 mcg PO DAILY 10/14/23 02/05/24 mcg (1,000 unit) tablet furosemide 40 mg tablet 40 mg PO DAILY 10/14/23 02/05/24 glipizide 10 mg tablet 10 mg PO DAILY 10/14/23 02/05/24 losartan 100 mg tablet 100 mg PO DAILY 10/14/23 02/05/24 Previous Rx's Medication Instructions Recorded guaifenesin 600 mg tablet, 1,200 mg (2 x 600 mg) PO BID PRN 10/14/23 extended release 12 hr (Mucinex) cough #20 tabs glipizide 5 mg tablet 5 mg PO DAILY #90 tabs 12/09/23 mupirocin 2 % topical ointment 1 applic topical BID cellultis 3 12/25/23 weeks #22 grams blood-glucose meter,continuous #1 ea 01/07/24 (Dexcom G7 [employer]) blood-glucose sensor (Dexcom G7 #3 ea 01/07/24 Sensor device) carvedilol 25 mg tablet See Rx Instructions .Route 01/22/24 .COMPLEX #180 tabs levothyroxine 25 mcg tablet See Rx Instructions .Route 01/23/24 .COMPLEX #30 tabs metformin 1,000 mg tablet See Rx Instructions .Route 01/23/24 .COMPLEX #60 tabs mirtazapine 15 mg tablet See Rx Instructions .Route 01/23/24 .COMPLEX #30 tabs pioglitazone 30 mg tablet See Rx Instructions .Route 01/23/24 .COMPLEX #30 tabs tamsulosin 0.4 mg capsule See Rx Instructions .Route 01/23/24 .COMPLEX #30 caps pantoprazole 20 mg tablet,delayed 20 mg PO DAILY #60 tabs 02/05/24 release sitagliptin phosphate 100 mg 100 mg PO DAILY #90 tabs 02/07/24 tablet (Januvia) Allergies Allergy/AdvReac Type Severity Reaction Status Date / Time lisinopril AdvReac Severe cough Verified 02/05/24 13:57 dulaglutide [From Trulicity] AdvReac Verified 02/05/24 13:57 ozempic AdvReac Intermediate Difficulty Uncoded 01/07/24 15:20 Breathing [facility] Disclaimer: The information contained in this section may have been updated after the patient was seen, as this information can be updated by other users. Medical History Abnormal cardiovascular stress test Crushing injury of left leg CAD (coronary artery disease) Obesity (BMI 30-39.9) Reactive airway disease with acute exacerbation LV (left ventricular) mural thrombus Hypertensive heart disease Ky is on carvedilol furosemide losartan for his hypertension and cardiac issues. He is following with Dr. Reeves in his office who are following and providing these medications. Automatic implantable cardiac defibrillator in situ Diabetes mellitus Hyperlipidemia We will check a nonfasting lipid panel today. Ky is on atorvastatin 40 mg/day. Coronary arteriosclerosis Chronic systolic heart failure Surgical History History of colonoscopy Stented coronary artery Family History Family/Other Hypertension Diabetes Coronary artery disease Heart attack Social History Smoking Status: Former smoker tobacco type: cigarettes packs per day: 1 second hand exposure: No alcohol intake: never substance use type: denies use current occupational status: employed Travel in the last 8 weeks: None household members: family housing: house ROS Obtained: Yes Systems reviewed as appropriate & no additional complaints except as documented Physical Exam General General appearance: alert and in no apparent distress Head Head exam: normocephalic and other (Abrasion over the superior occiput, hemostatic) Eye Eye exam: Present PERRL and EOMI ENT ENT exam: Present mucous membranes moist Neck Neck exam: Present normal inspection and tenderness (Mild, midline) Chest Chest inspection: Present normal inspection and symmetric chest wall rise Respiratory Respiratory exam: Present normal lung sounds bilaterally; Absent respiratory distress Cardiovascular Cardiovascular exam: Present regular rate and normal rhythm Abdominal Exam Abdominal exam: Present soft; Absent tenderness Extremities Exam Extremities exam: Present normal inspection and full ROM; Absent tenderness Back Exam Back exam: Present other (A couple linear abrasions over his left scapula, no tenderness. Hemostatic.) Neurological Exam Neurological exam: Present alert and CN II-XII intact; Absent motor sensory deficit Psychiatric Psychiatric exam: Present normal affect Skin Skin exam: Present warm and dry Medical Decision Making Gaurav Inquiry Pt receiving controlled substance: No Vital Signs: 02/14/24 18:33 02/14/24 18:40 Temperature 98.3 F 98.3 F Temperature Source Oral Oral Pulse Rate [Left Radial] 64 64 Respiratory Rate 20 20 Blood Pressure [Right Arm] 151/76 H 151/76 H Blood Pressure Mean [Right Arm] 101 101 02 Sat by Pulse Oximetry 97 97 Oxygen Delivery Method Room Air Room Air Orders (Tests/Meds): ORDERS Category Date Time Status CT cervical spine wo con Stat Cat Scan 02/14/24 18:[address] head/brain wo con Stat Cat Scan 02/14/24 18:29 Completed Medical Decision Narrative: In summary patient is a 64-year-old male past medical history described above who presents emergency department for evaluation of traumatic injury sustained in a fall. Patient is hemodynamically stable nontoxic-appearing upon arrival, afebrile. C-spine precautions will be initiated. Limited trauma survey will be conducted with CT of the head and cervical spine without contrast based on history and physical exam and the fact the patient is not on anticoagulants. Tdap is up-to-date. Noncontrasted CT scan of the head informally interpreted by me, no acute large intracranial hemorrhage or midline shift. Formal read shows no acute pathology, incidental will pass fluid left sphenoid sinus for which no further workup or imaging is indicated at this time. CT cervical spine negative for acute traumatic pathology. Upon repeat evaluation patient had no acute complaints, cervical spine cleared. Patient was ambulatory at bedside and is appropriate for discharge at this time. Critical Care Critical Care Time Critical Care Time: No
[2024-02-14 18:33] VITALS: BP 151/76; PULSE 64; RESP 20; TEMP 36.8; O2SAT 97; BMI 34.4
[2024-02-14 18:40] VITALS: BP 151/76; PULSE 64; RESP 20; TEMP 36.8; O2SAT 97; BMI 34.4
[2024-02-14 19:41] VITALS: BP 142/79; PULSE 72; RESP 15; TEMP 36.6; O2SAT 100
== END 2024-02-14 19:43 | disposition home or self-care (01) ==
PROVIDERS: Emergency Provider Emergency Medicine; PCP Student in an Organized Health Care Education/Training Program
DX: S06.0X0A Concussion without loss of consciousness, initial encounter (principal); R51.9 Headache, unspecified; E11.9 Type 2 diabetes mellitus without complications; I11.0 Hypertensive heart disease with heart failure; I50.22 Chronic systolic (congestive) heart failure; E78.5 Hyperlipidemia, unspecified; I25.10 Atherosclerotic heart disease of native coronary artery without angina pectoris; W18.39XA Other fall on same level, initial encounter; Z95.810 Presence of automatic (implantable) cardiac defibrillator; Z79.84 Long term (current) use of oral hypoglycemic drugs; Z95.5 Presence of coronary angioplasty implant and graft; Z87.891 Personal history of nicotine dependence
CPT/HCPCS: 70450; 72125; 99285

== ENCOUNTER 2024-04-11 07:38 | Outpatient (CLI) | payer BC, SELFPAY ==
--- NOTE | 2024-04-11 07:38 | CT_ITS ---
FINAL REPORT TECHNIQUE: Pre- and postcontrast images of the abdomen were performed by computed tomography. Reconstructed images were obtained and reviewed. This study was performed with techniques to keep radiation doses as low as reasonably achievable (ALARA). Individualized dose reduction techniques using automated exposure control or adjustment of mA and/or kV according to the patient's size were employed. CLINICAL HISTORY: abd normal US, renal cyst COMPARISON: 02/11/2024 FINDINGS: The there is mild vascular calcification. There is fat in the left ventricle apex consistent with prior myocardial infarction. The liver is normal in size and attenuation. The spleen is unremarkable. The adrenals are normal. The pancreas is unremarkable. There is no evidence of renal mass or cyst. There is no abnormal contrast enhancement of the kidneys. The questionable abnormality in the right kidney seen on prior ultrasound was likely artifactual. IMPRESSION: No renal mass or cyst. Reviewed, Interpreted and Dictated by Javier Miller III, MD Transcribed by Cecelia Penn Authenticated and [facility]
[2024-04-11 08:27] LABS: Blood Urea Nitrogen 16 mg/dl (9-20); Estimated Glomerular Filt Rate 98 ml/min (>60); GFR (African American) 118 ML/MIN (>60)
[2024-04-11] MEDS: IOPAMIDOL-370 (76%);100ML BOTTLE 75 ML IV (08:53)
[2024-04-11] MEDS: SODIUM CHLORIDE 0.9% 10ML SYR (RAD ONLY) 10 ML IV (08:53)
[2024-04-11 18:14] LABS: Basophils % 0.4 % (0.1-2.0); Eosinophils # 0.2 K/mm3 (0.0-0.4); Eosinophils % 2.5 % (0.1-12.0); Hemoglobin 13.7 g/dL (14.1-18.0); Lymphocytes # 2.1 K/mm3 (0.7-4.5); Lymphocytes % 27.4 % (10-50); Mean Corpuscular HGB Conc 33.3 g/dL (31.8-35.4); Mean Corpuscular Hemoglobin 31.6 pg (27.0-31.2); Mean Corpuscular Volume 94.8 fl (80-94); Mean Platelet Volume 8.7 fl (7.4-10.4); Monocytes # 0.4 K/mm3 (0.1-1.0); Monocytes % 5.7 % (1.7-9.3); Platelet Count 207 K/mm3 (142-424); Red Blood Count 4.32 M/mm3 (4.60-6.20); Red Cell Distribution Width 14.1 % (11.5-17.5); White Blood Count 7.8 K/mm3 (4.8-10.8)
[2024-04-11 19:06] LABS: Hemoglobin A1C 11.5 % (4.0-6.0)
[2024-04-11 19:15] LABS: Thyroid Stimulating Hormone 1.58 uIU/mL (0.465-4.68)
== END 2024-04-11 23:59 | disposition home or self-care (01) ==
LOC: RAD 07:38
PROVIDERS: PCP Student in an Organized Health Care Education/Training Program; Visit Provider Student in an Organized Health Care Education/Training Program
DX: R93.5 Abnormal findings on diagnostic imaging of other abdominal regions, including retroperitoneum (principal); N28.1 Cyst of kidney, acquired
CPT/HCPCS: 36415; 74170; 82565; 83036; 84443; 84520; 85025; Q9967

== ENCOUNTER 2024-04-11 08:59 | Outpatient (CLI) | payer BC, SELFPAY | END 2024-04-11 23:59 | disposition home or self-care (01) | LOC: LAB.DROPOF 04-15 09:00 | PROVIDERS: PCP Student in an Organized Health Care Education/Training Program; Visit Provider Student in an Organized Health Care Education/Training Program | DX: R93.5 Abnormal findings on diagnostic imaging of other abdominal regions, including retroperitoneum (principal); N28.1 Cyst of kidney, acquired | CPT/HCPCS: 83036; 84443; 85025 ==

== ENCOUNTER 2024-05-19 15:29 | Outpatient (CLI) | payer BC, SELFPAY ==
[2024-05-19 20:06] LABS: Basophils # 0.1 K/mm3 (0-0.2); Basophils % 0.7 % (0.1-2.0); Eosinophils # 0.2 K/mm3 (0.0-0.4); Eosinophils % 2.3 % (0.1-12.0); Hematocrit 42.6 % (42.0-52.0); Hemoglobin 13.6 g/dL (14.1-18.0); Lymphocytes # 1.8 K/mm3 (0.7-4.5); Lymphocytes % 26.2 % (10-50); Mean Corpuscular HGB Conc 31.9 g/dL (31.8-35.4); Mean Corpuscular Hemoglobin 31.5 pg (27.0-31.2); Mean Corpuscular Volume 98.8 fl (80-94); Mean Platelet Volume 8.6 fl (7.4-10.4); Monocytes # 0.4 K/mm3 (0.1-1.0); Monocytes % 6.3 % (1.7-9.3); Neutrophils # 4.6 K/mm3 (1.8-7.8); Neutrophils % 64.5 % (37.0-80.0); Platelet Count 219 K/mm3 (142-424); Red Blood Count 4.31 M/mm3 (4.60-6.20); Red Cell Distribution Width 14.4 % (11.5-17.5); White Blood Count 7.1 K/mm3 (4.8-10.8)
[2024-05-19 20:27] LABS: Alanine Aminotransferase 31 U/L (12-78); Albumin Level 4.3 g/dl (3.5-5.0); Albumin/Globulin Ratio 1.4 (1.1-1.8); Alkaline Phosphatase 84 U/L (38-126); Anion Gap 14.7 mEq/L (5-15); Aspartate Amino Transferase 28 U/L (17-59); Bilirubin,Total 0.6 mg/dl (0.2-1.3); Blood Urea Nitrogen 21 mg/dl (9-20); Calcium 9.6 mg/dl (8.4-10.2); Carbon Dioxide 25 mmol/L (22.0-30.0); Chloride 104 mmol/L (98-107); Chol/HDL Ratio 3.5 (1-3.5); Cholesterol 133 mg/dl (140-200); Estimated Glomerular Filt Rate 75 ml/min (>60); GFR (African American) 91 ML/MIN (>60); Globulin 3.1 g/dL (1.3-3.2); Glucose 186 mg/dl (74-100); HDL Cholesterol 38 mg/dl (40-60); Potassium 3.7 mmoL/L (3.5-5.1); Sodium 140 mmol/L (136-145); Total Protein,Serum 7.4 g/dl (6.3-8.2); Triglycerides 107 mg/dl (30-150); VLDL Cholesterol 21 mg/dL (0-40)
[2024-05-19 20:38] LABS: Direct LDL Cholesterol 68.95 mg/dL (100-129)
[2024-05-19 20:40] LABS: Iron 76 ug/dL (49-181)
[2024-05-19 20:55] LABS: Total Iron Binding Capacity 327 ug/dL (261-462)
[2024-05-19 21:16] LABS: Ferritin 43.5 ng/ml (17.9-464)
[2024-05-19 21:34] LABS: Vitamin B12 408 pg/mL (239-931)
== END 2024-05-19 23:59 | disposition home or self-care (01) ==
LOC: LAB.DROPOF 05-20 15:29
PROVIDERS: PCP Student in an Organized Health Care Education/Training Program; Visit Provider Student in an Organized Health Care Education/Training Program
DX: D64.9 Anemia, unspecified (principal); E11.9 Type 2 diabetes mellitus without complications
CPT/HCPCS: 80053; 80061; 82607; 82728; 82746; 83540; 83550; 85025

== ENCOUNTER 2024-09-15 15:52 | Outpatient (CLI) | payer BC, SELFPAY | END 2024-09-15 23:59 | disposition home or self-care (01) | LOC: LAB.DROPOF 09-16 15:12 | PROVIDERS: PCP Student in an Organized Health Care Education/Training Program; Visit Provider Student in an Organized Health Care Education/Training Program | DX: R09.81 Nasal congestion (principal) | CPT/HCPCS: 87635 ==

== ENCOUNTER 2024-10-06 14:37 | Outpatient (CLI) | payer BC, SELFPAY ==
--- NOTE | 2024-10-06 14:42 | XR_ITS ---
FINAL REPORT CLINICAL HISTORY: pain COMPARISON: None FINDINGS: 3 views of the left shoulder were obtained. There is no fracture or dislocation. The joint space is preserved. Soft tissues are unremarkable. IMPRESSION: No acute abnormality of the left shoulder. Reviewed, Interpreted and Dictated by Darlin Taylor MD Transcribed by Brittany Mcgovern Authenticated and [facility]
--- NOTE | 2024-10-06 14:42 | XR_ITS ---
FINAL REPORT CLINICAL HISTORY: shoulder pain COMPARISON: None FINDINGS: 3 views of the right shoulder were obtained. There is no fracture or dislocation. There is degenerative joint disease. Soft tissues are unremarkable. IMPRESSION: Degenerative disease without acute abnormality of the right shoulder. Reviewed, Interpreted and Dictated by Darlin Taylor MD Transcribed by Brittany Mcgovern Authenticated and [facility]
== END 2024-10-06 23:59 | disposition home or self-care (01) ==
LOC: RAD 14:39
PROVIDERS: PCP Student in an Organized Health Care Education/Training Program; Visit Provider Student in an Organized Health Care Education/Training Program
DX: M25.511 Pain in right shoulder (principal); M25.512 Pain in left shoulder
CPT/HCPCS: 73030

== ENCOUNTER 2024-10-27 10:52 | Outpatient (CLI) | payer BC, SELFPAY ==
--- NOTE | 2024-10-27 10:56 | CA_ITS ---
APPROVED REPORT EXAM: Comprehensive 2D, Doppler, and color-flow Echocardiogram Eligibility Specialist: Sandra Del Rio RT(R) Ht: 5 ft 7 in Wt: 215lbs BSA: 2.09 BP: 150/84 mmHg Indications: dyspnea, CP, ex smoker, HTN, DM, CAD(11 cardiac stents), abn stress test, AICD, Abn EKG. 2D Dimensions LVEF (Parmar's) 49.40 % M: 52 - 72 LV Volume 95.50 mL M: 62 - 150 LV Volume Index 45.7 mL/m2 M: 34 - 74 LA Volume 17.90 mL LA Volume Index 8.56 mL/m2 (M/F) 16-34 EF AP4 46.60 % EF AP2 53.4 % EF BP 49.4 % GL Strain -11.8 % M-Mode Dimensions RVDd 2.08 cm (0.9-2.6) LA Diam 3.28 cm (1.9-4.0) LVDd 5.27 cm (3.5-5.7) LVDs 4.12 cm (3.5-5.7) IVSd 1.10 cm (0.6-1.1) PWd 0.81 cm (0.6-1.1) EF (Teich) 43.80% FS 21.80% EDV (Teich) 133.60 mL ESV (Teich) 75.10 mL LV Diastology E Decel Time 117 (160-240 msec) E/A Ratio 0.56 Mitral Valve MV A Velocity 114.0 (40-130 cm/s) E/A Ratio 0.56 Left Ventricle The left ventricle is normal size. The left ventricular systolic function is low normal. There is increased LV wall thickness. The septum is asynchronous. Transmitral Doppler flow pattern suggests impaired LV relaxation. LVEF is 50%. Right Ventricle The right ventricle is normal size. The right ventricular systolic function is normal. Atria The left atrium size is normal. The right atrium size is normal. There is no Doppler evidence of interatrial shunt. Aortic Valve The aortic valve opens well. There is no aortic valvular stenosis. No aortic regurgitation is present. Mitral Valve The mitral valve is normal in structure. No evidence of mitral valve stenosis. Trace mitral regurgitation. Tricuspid Valve The tricuspid valve leaflets are thin and pliable. Trace tricuspid regurgitation. There is insufficient TR jet to estimate RVSP. Pulmonic Valve The pulmonary valve is normal in structure. Trace pulmonic regurgitation. Great Vessels The aortic root is normal in size. The ascending aorta is not well-visualized. IVC is normal in size and collapses >50% with inspiration. Pericardium There is no pericardial effusion. Other Information Study Quality: Technically Difficult Conclusion Technically difficult study due to poor acoustic windows. Low normal LV systolic function (LVEF 50%). No significant valvular stenosis or regurgitation. Electronically signed by : Laura Corea MD 10/29/2024 15:51:04
== END 2024-10-27 23:59 | disposition home or self-care (01) ==
LOC: RT 10:53
PROVIDERS: PCP Student in an Organized Health Care Education/Training Program; Visit Provider Physician Assistant
DX: I10 Essential (primary) hypertension (principal); I25.110 Atherosclerotic heart disease of native coronary artery with unstable angina pectoris; R06.00 Dyspnea, unspecified; Z95.810 Presence of automatic (implantable) cardiac defibrillator
CPT/HCPCS: 93306

== ENCOUNTER 2024-11-05 11:04 | Outpatient (CLI) | payer BC, SELFPAY ==
[2024-11-05 12:15] LABS: Alanine Aminotransferase 23 U/L (12-78); Albumin Level 4.5 g/dl (3.5-5.0); Albumin/Globulin Ratio 1.7 (1.1-1.8); Alkaline Phosphatase 89 U/L (38-126); Anion Gap 14.5 mEq/L (5-15); Aspartate Amino Transferase 25 U/L (17-59); Bilirubin,Total 0.6 mg/dl (0.2-1.3); Blood Urea Nitrogen 18 mg/dl (9-20); Calcium 9.8 mg/dl (8.4-10.2); Carbon Dioxide 22 mmol/L (22.0-30.0); Chloride 106 mmol/L (98-107); Chol/HDL Ratio 6.7 (1-3.5); Cholesterol 236 mg/dl (140-200); Estimated Glomerular Filt Rate 85 ml/min (>60); GFR (African American) 103 ML/MIN (>60); Globulin 2.6 g/dL (1.3-3.2); Glucose 157 mg/dl (74-100); HDL Cholesterol 35 mg/dl (40-60); Potassium 4.5 mmoL/L (3.5-5.1); Sodium 138 mmol/L (136-145); Total Protein,Serum 7.1 g/dl (6.3-8.2); Triglycerides 210 mg/dl (30-150); VLDL Cholesterol 42 mg/dL (0-40)
[2024-11-05 12:26] LABS: Direct LDL Cholesterol 154.16 mg/dL (100-129)
[2024-11-05 12:34] LABS: Free T4 (Free Thyroxine) 1.32 ng/dl (0.78-2.19)
[2024-11-05 12:49] LABS: Thyroid Stimulating Hormone 1.46 uIU/mL (0.465-4.68)
[2024-11-05 15:13] LABS: Creatinine,Urine Random 60 mg/dL (Not Estab.)
== END 2024-11-05 23:59 | disposition home or self-care (01) ==
LOC: LAB 11:06
PROVIDERS: PCP Student in an Organized Health Care Education/Training Program; Visit Provider Nurse Practitioner Family
DX: E11.65 Type 2 diabetes mellitus with hyperglycemia (principal)
CPT/HCPCS: 36415; 80053; 80061; 82043; 82570; 84439; 84443

== ENCOUNTER 2025-01-27 09:20 | Outpatient (CLI) | payer BC, SELFPAY ==
[2025-01-27 10:31] LABS: Alanine Aminotransferase 27 U/L (12-78); Albumin Level 4.2 g/dl (3.5-5.0); Alkaline Phosphatase 82 U/L (38-126); Aspartate Amino Transferase 27 U/L (17-59); Bilirubin,Direct 0.2 mg/dl (0.0-0.4); Bilirubin,Indirect 0.5 mg/dL (0.0-0.9); Bilirubin,Total 0.7 mg/dl (0.2-1.3); Bilirubin,Unconjugated 0.5 mg/dL (0.0-1.1); Chol/HDL Ratio 2.8 (1-3.5); Cholesterol 123 mg/dl (140-200); HDL Cholesterol 44 mg/dl (40-60); Total Protein,Serum 7.3 g/dl (6.3-8.2); Triglycerides 66 mg/dl (30-150); VLDL Cholesterol 13 mg/dL (0-40)
[2025-01-27 10:42] LABS: Direct LDL Cholesterol 52.11 mg/dL (100-129)
== END 2025-01-27 23:59 | disposition home or self-care (01) ==
LOC: LAB 09:22
PROVIDERS: Visit Provider Nurse Practitioner Family
DX: I11.0 Hypertensive heart disease with heart failure (principal); I50.20 Unspecified systolic (congestive) heart failure; E78.2 Mixed hyperlipidemia; I25.118 Atherosclerotic heart disease of native coronary artery with other forms of angina pectoris; R07.89 Other chest pain
CPT/HCPCS: 36415; 80061; 80076

== ENCOUNTER 2025-02-03 06:42 | Outpatient (CLI) | payer BC, SELFPAY ==
--- NOTE | 2025-02-03 | CA_ITS ---
APPROVED REPORT Exam: Pharmacologic Technologist: Ivonne Akhtar Ht: 5 ft 7 in Wt: 203 lbs BSA: 2.04 m2 HR: 74 bpm BP: 136/75 mmHg Stress Test Details Test: Lexiscan HR Resting HR: 74 bpm Max Heart Rate (APMHR): 156.492804 bpm Max HR Achieved: 97 bpm Target HR (85% APMHR): 132.978850 bpm % of APMHR: 62.18 Recovery HR: 87 bpm BP Resting BP: 136.0/75.0 mmHg Max BP: 139.0/73.0 mmHg Recovery BP: 134.0/75.0 mmHg ECG Resting ECG: Sinus rhythm, right bundle branch black Stress ECG Conclusion Symptoms: Dyspnea Arrhythmias/Ectopy: PVC ST-T Changes: Less than [address] depression. Conclusion: EKG unremarkable due to Lexiscan infusion. Electronically signed by : Laura Corea MD 02/03/2025 21:24:57
--- NOTE | 2025-02-03 07:00 | NM_ITS ---
APPROVED REPORT Exam: Nuclear Stress Test Indication: Chest pain, CAD, HTN, DM, High cholesterol, Family history Patient Location: Outpatient Stress Tech: Ivonne Akhtar NM Tech:Marilyn Eddy, ARRT, RT (R)(N) Ht: 5 ft 6 in Wt: 203 lbs HR: 74 bpm BP: 136/75 mmHg BSA: 2.01 m2 TID: 1.21 BMI: 32.7 History: Chest pain, CAD, HTN, DM, High cholesterol, Family history Procedure: Patient received 0.4 mg of intravenous Lexiscan, resting heart rate 74 bpm, resting blood pressure 136/75 mmHg, with Lexiscan maximum heart rate achieved was 97 bpm which is % of the maximum predicted heart rate and blood pressure was 139/73 mmHg. With Lexiscan, patient denied any complaint of chest pain. Cardiac Stress and Resting SPECT Images: Cardiac Stress and Resting SPECT images were obtained using technetium 99m Myoview 32.6 mCi stress and 10.81 mCi at rest. Resting and stress imaging in supine and prone positions demonstrate a large sized, severe, partially reversible perfusion defect in the anterior and anteroseptal LV shah, as well as large sized, moderate, partially reversible perfusion defect in the inferior LV wall. There is also a medium sized, severe, fixed perfusion defect in the apical LV wall. There is increase in transient ischemic dilatation ratio (TID 1.21) suggestive of possible multivessel disease or balanced ischemia. Gated imaging demonstrates moderate reduction in global LV systolic function. There is severe hypokinesis of the anteroseptal LV wall, as well as the apical LV wall. LVEF is calculated at 31%. Conclusion: Large sized, severe, partially reversible perfusion defect in the anterior and anteroseptal LV shah, as well as large sized, moderate, partially reversible perfusion defect in the inferior LV wall. There is also a medium sized, severe, fixed perfusion defect in the apical LV wall. Findings are suggestive of partial reversible ischemia. There is increase in transient ischemic dilatation ratio (TID 1.21) suggestive of possible multivessel disease or balanced ischemia. Gated imaging demonstrates moderate reduction in global LV systolic function. There is severe hypokinesis of the anteroseptal LV wall, as well as the apical LV wall. LVEF is calculated at 31%. Electronically signed by : Laura Corea MD 02/03/2025 21:20:10
[2025-02-03] MEDS: SODIUM CHLORIDE 0.9% 10ML SYR (RAD ONLY) 10 ML IV ×2 (08:24)
[2025-02-03] MEDS: REGADENOSON 0.4MG/5ML SYRINGE 0.4 MG IV (08:24)
[2025-02-03] MEDS: ISOTOPE MYOVIEW (PER STUDY) 1 DOSE IV (08:24)
== END 2025-02-03 23:59 | disposition home or self-care (01) ==
LOC: RAD 06:43
PROVIDERS: Visit Provider Nurse Practitioner Family
DX: I50.20 Unspecified systolic (congestive) heart failure (principal); E78.2 Mixed hyperlipidemia; I25.118 Atherosclerotic heart disease of native coronary artery with other forms of angina pectoris; R07.89 Other chest pain
CPT/HCPCS: 78452; 93017; 93018; A9502; J2785

== ENCOUNTER 2025-03-06 10:54 | Day surgery (SDC) | payer BC, SELFPAY ==
[2025-03-06] VITALS (12 sets, daily range): BP systolic 106–136; BP diastolic 61–95; PULSE 66–82; RESP 16–20; TEMP 36.9; O2SAT 92–99; BMI 31.6
--- NOTE | 2025-03-06 07:14 | IR_ITS ---
APPROVED REPORT Patient Location: Outpatient Clothing Busheler: NOE Lackey RT (R) PROCEDURES Selective coronary angiogram Drug-eluting stent deployment to the proximal mid circumflex artery INDICATION Coronary artery disease, Angina pectoris, Abnormal Myoview, Systolic congestive heart failure Informed consent was obtained prior to the procedure. COMPLICATIONS NONE Estimated Blood Loss: LESS THAN 10 ML TECHNIQUE One percent lidocaine used to anesthetize the right anterior aspect of the wrist. The right radial artery was accessed via the Seldinger technique. A 6 Azeri sheath was placed in the right radial artery. 2.5 mg of Verapamil, 800 mcg of nitroglycerin, 1mg Lidocaine and 5000 U Heparin were given through the arterial sheath. The JL3 catheter was also used to perform selective coronary angiogram. At the end the diagnostic angiogram therapeutic Was administered giving a therapeutic ACT and the guide catheter was placed in left main artery followed by Choice PT extra-support wire placed on the circumflex artery. A 4 mm x 26 mm [place] frontier stent was deployed at 14 amaris reducing the severe stenosis to 0%. ERIC-3 flow was present before and after the procedure. At the end the procedure the apparatus was removed the sheath was removed and hemostasis was achieved using TR banding patient was transferred to the postoperative in stable condition ANGIOGRAPHIC RESULTS The left main artery Normal The left anterior descending artery Has proximal 30% stenosis with a stent in the midportion which is widely patent with concentric 30% in-stent restenosis. Distally there is a 50% stenosis in the LAD and an additional 40% The circumflex artery Large-caliber dominant vessel with a proximal 60 and 70% stenotic lesion just distal to a widely patent proximal stent The right coronary artery Proximally occluded The PURCELL ventriculogram reveals Not performed The left ventricular end-diastolic pressure Not measured IMPRESSION Severe stenosis in the proximal to mid circumflex artery with successful stenting reducing the lesion to 0% with 1 drug-eluting stent PLAN 1. Effient and aspirin 2. LDL less than 55 achieved with high intensity statin 3. Standard therapy for ischemic heart disease 4. GDMT for systolic heart failure 5. Cardiac rehabilitation 6. Avoidance of tobacco products Electronically signed by : Ephraim Reeves MD 03/06/2025 14:05:13
[2025-03-06 11:14] LABS: Basophils % 0.5 % (0.1-2.0); Eosinophils # 0.1 Kmm3 (0.0-0.4); Eosinophils % 1.9 % (0.1-12.0); Hematocrit 41.7 % (42.0-52.0); Hemoglobin 13.9 g/dL (14.1-18.0); Immature Granulocytes # 0.03 10^3uL; Immature Granulocytes % 0.4 %; Lymphocytes # 1.7 K/mm3 (0.7-4.5); Mean Corpuscular HGB Conc 33.3 g/dL (31.8-35.4); Mean Corpuscular Volume 96.1 fl (80-94); Mean Platelet Volume 9.9 fl (7.4-10.4); Monocytes # 0.6 K/mm3 (0.1-1.0); Monocytes % 7.9 % (1.7-9.3); Neutrophils # 4.9 K/mm3 (1.8-7.8); Neutrophils % 66.3 % (37.0-80.0); Nucleated Red Blood Cells # 0 10^3/uL; Nucleated Red Blood Cells % 0 %; Platelet Count 205 K/mm3 (142-424); Red Blood Count 4.34 M/mm3 (4.60-6.20); Red Cell Distribution Width 13.7 % (11.5-17.5); Red Cell Distribution Width-SD 48.2 fL; White Blood Count 7.5 K/mm3 (4.8-10.8)
[2025-03-06 11:25] LABS: Anion Gap 13.3 mEq/L (5-15); Blood Urea Nitrogen 21 mg/dl (9-20); Calcium 9.7 mg/dl (8.4-10.2); Carbon Dioxide 31 mmol/L (22.0-30.0); Chloride 102 mmol/L (98-107); Creatinine Clearance Estimated 97 mL/min (50-200); Estimated Glomerular Filt Rate 85 ml/min (>60); GFR (African American) 103 ML/MIN (>60); Glucose 168 mg/dl (74-100); Potassium 4.3 mmoL/L (3.5-5.1); Sodium 142 mmol/L (136-145)
[2025-03-06] MEDS: HEPARIN 1,000 UNITS/500ML NS (CATH LAB) 3000 UNIT IV (13:10)
[2025-03-06] MEDS: LIDOCAINE 1% 10ML MDV 10 ML IJ (13:10)
[2025-03-06] MEDS: 0.9 % SODIUM CHLORIDE 500 ML 25 ML IV (13:10)
[2025-03-06] MEDS: HEPARIN 1,000 UNITS/ML 10ML VIAL (CATH LAB) 5000 UNIT IV ×2 (13:10→13:47)
[2025-03-06] MEDS: diphenhydrAMINE 50MG/ML VIAL 50 MG IV (13:10)
[2025-03-06] MEDS: VERAPAMIL 2.5MG/ML 2ML VIAL 2.5 MG IV (13:11)
[2025-03-06] MEDS: NITROGLYCERIN 800MCG/8ML SYR (CATH LAB) 800 MCG IA (13:11)
[2025-03-06] MEDS: MIDAZOLAM HCL 1MG/ML 5ML VIAL 1 MG IV (13:47)
[2025-03-06] MEDS: FENTANYL 100MCG/2ML VIAL 50 MCG IV (13:48)
[2025-03-06] MEDS: PRASUGREL 10MG TAB 60 MG PO (13:54)
[2025-03-06] MEDS: IOPAMIDOL-370 (76%);100ML BOTTLE 70 ML IV (16:04)
[2025-03-06 16:10] LABS: CATHL Activated Clotting Time 288 SEC (74-125)
== END 2025-03-06 16:29 | disposition home or self-care (01) ==
PROVIDERS: Visit Provider Internal Medicine
PROC: 4A023N7 Measurement of Cardiac Sampling and Pressure, Left Heart, Percutaneous Approach (ICD-10-PCS; CPT 93452; principal; 2025-03-06 11:30)
DX: I25.119 Atherosclerotic heart disease of native coronary artery with unspecified angina pectoris (principal); R93.1 Abnormal findings on diagnostic imaging of heart and coronary circulation; I11.0 Hypertensive heart disease with heart failure; I50.22 Chronic systolic (congestive) heart failure; E11.9 Type 2 diabetes mellitus without complications; E78.5 Hyperlipidemia, unspecified; E66.9 Obesity, unspecified; Z68.31 Body mass index [BMI] 31.0-31.9, adult; Z95.5 Presence of coronary angioplasty implant and graft; Z95.810 Presence of automatic (implantable) cardiac defibrillator; Z82.49 Family history of ischemic heart disease and other diseases of the circulatory system; Z88.8 Allergy status to other drugs, medicaments and biological substances; Z79.84 Long term (current) use of oral hypoglycemic drugs; Z79.85 Long-term (current) use of injectable non-insulin antidiabetic drugs; Z79.82 Long term (current) use of aspirin; Z79.899 Other long term (current) drug therapy; Z87.891 Personal history of nicotine dependence
CPT/HCPCS: 92928; 93454; 36415; 80048; 85025; 85347; 99152; C1725; C1769; C1874; J1200; J1644; J3010; Q9967

== ENCOUNTER 2025-03-09 10:49 | Outpatient (CLI) | payer BC, SELFPAY ==
[2025-03-09 11:20] LABS: Basophils % 0.5 % (0.1-2.0); Eosinophils # 0.2 Kmm3 (0.0-0.4); Eosinophils % 1.8 % (0.1-12.0); Hematocrit 40.6 % (42.0-52.0); Hemoglobin 13.7 g/dL (14.1-18.0); Immature Granulocytes # 0.04 10^3uL; Immature Granulocytes % 0.5 %; Lymphocytes # 1.7 K/mm3 (0.7-4.5); Lymphocytes % 20.6 % (10-50); Mean Corpuscular HGB Conc 33.7 g/dL (31.8-35.4); Mean Corpuscular Hemoglobin 32.6 pg (27.0-31.2); Mean Corpuscular Volume 96.7 fl (80-94); Mean Platelet Volume 9.5 fl (7.4-10.4); Monocytes # 0.6 K/mm3 (0.1-1.0); Monocytes % 6.6 % (1.7-9.3); Neutrophils # 5.8 K/mm3 (1.8-7.8); Nucleated Red Blood Cells # 0 10^3/uL; Nucleated Red Blood Cells % 0 %; Platelet Count 181 K/mm3 (142-424); Red Cell Distribution Width 13.9 % (11.5-17.5); Red Cell Distribution Width-SD 49.3 fL; White Blood Count 8.3 K/mm3 (4.8-10.8)
[2025-03-09 11:49] LABS: Anion Gap 11.9 mEq/L (5-15); Blood Urea Nitrogen 18 mg/dl (9-20); Calcium 9.1 mg/dl (8.4-10.2); Carbon Dioxide 26 mmol/L (22.0-30.0); Chloride 108 mmol/L (98-107); Estimated Glomerular Filt Rate 114 ml/min (>60); GFR (African American) 137 ML/MIN (>60); Glucose 168 mg/dl (74-100); Potassium 3.9 mmoL/L (3.5-5.1); Sodium 142 mmol/L (136-145)
== END 2025-03-09 23:59 | disposition home or self-care (01) ==
LOC: LAB 10:50
PROVIDERS: Visit Provider Internal Medicine
DX: Z95.5 Presence of coronary angioplasty implant and graft (principal)
CPT/HCPCS: 36415; 80048; 85025

== ENCOUNTER 2025-03-30 10:59 | Emergency (ER) | payer BC, SELFPAY ==
[2025-03-30] VITALS (7 sets, daily range): BP systolic 121–153; BP diastolic 77–103; PULSE 73–86; RESP 16–20; TEMP 36.8–37; O2SAT 97–99; BMI 31.9
--- OUTSIDE RECORDS SUMMARY | 2025-03-30 11:34 | XMS_ITS | Encounter Summary ---
Author Organization [facility] Address [address] [place] [address] Care Team Providers Care Life Skills Coordinator Volunteer Name Role Phone Yessenia Horner Primary Care Provider [phone] Reason for Visit * Reason Comments Med Refill Encounter Details Date Type Department Care Team (Late st Contact Info) Description 02/04/2025 Refill [facility] Endocrinology [address] [place] [address] Jeni Villanueva P, SERVICE DESK AGENT [address] [facility] [address] [place] [address] Type 2 diabetes mellitus with hyperglycemia, without long-term current use of insulin (CMS/HCC) Social History Tobacco Use Types Packs/Day Years Used Date Smoking Tobacco: Never Smokeless Tobacco: Never Sex and Gender Information Value Date Recorded Sex Assigned at Not on file Legal Sex Male 7:07 PM EDT Gender Identity Not on file Sexual Orientation Not on file documented as of this encounter Miscellaneous Notes * Telephone Encounter - Sonam Gracia PharmD - 02/04/2025 3:27 PM EDT 1 medication(s) has been approved per protocol. documented in this encounter Plan of Treatment Not on file documented as of this encounter Visit Diagnoses Diagnosis Type 2 diabetes mellitus with hyperglycemia, without long-term current use of insulin (CMS/HCC) documented in this encounter Additional Health Concerns Assessment Noted Time A Body Mass Index follow-up plan has been documented for the patient 10/28/2024 4:51 PM EST documented as of this encounter Care Teams Life Skills Coordinator Volunteer Relationship Specialty Start Date End Date Yessenia Horner PA [address] [place] [address] PCP - General 02/18/21 documented as of this encounter
--- OUTSIDE RECORDS SUMMARY | 2025-03-30 11:34 | XMS_ITS | Clinical Summary ---
Author Organization [facility] Address [address] [id number] Care Team Providers Care Pocket Creaser Name Role Phone Yessenia Horner Primary Care Provider [phone] Allergies Active Allergy Reactions Criticality Noted Date Comments Dulaglutide Other - please docum ent in the comment field Low 10/10/2023 Lisinopril Cough High 10/10/2023 Semaglutide(0.25 Or 0.5mg-Dos) Shortness of breath High 10/10/2023 Medications albuterol 108 (90 Base) MCG/ACT inhaler 11/16/2023 Act marianne carvedilol (Coreg) 25 MG tablet 1 tablet (25 mg). 10/14/2023 Active cetirizine (ZyrTEC) 10 MG tablet 1 tablet (10 mg). 10/14/2023 Active GNP Vitamin D3 Extra Strength 25 MCG (1000 UT) tablet 03/31/2024 Active fluticasone (Flonase) 50 MCG/ACT nasal spray 07/02/2023 Active furosemide (Lasix) 40 MG tablet 1 tablet (40 mg). 10/14/2023 Active levothyroxine (Synthroid, Levoxyl) 25 MCG tablet 1 (one) time each day. 10/14/2023 Active losartan (Cozaar) 100 MG tablet 1 tablet (100 mg). 10/14/2023 Active mirtazapine (Remeron) 15 MG tablet 1 tablet (15 mg). 10/14/2023 Active tamsulosin (Flomax) 0.4 MG 24 hr capsule 1 capsule (0.4 mg). 10/14/2023 Active ASPIRIN 81 MG chewable tablet Chew 1 tablet (81 mg) 1 (one) time each day. Active pioglitazone (Actos) 30 MG tabletIndicatio ns:Type 2 diabetes mellitus with hyperglycemia, without long-term current use of insulin (CMS/HCC) Take 1 tablet (30 mg) by mouth 1 (one) time each day. 90 tablet 3 04/24/2024 5 Active pantoprazole (ProtoNix) 20 MG EC tablet 10/21/2024 Active ranolazine (Ranexa) 500 MG 12 hr tablet 10/09/2024 Active empagliflozin (Jardiance) 25 MGIndications:T ype 2 diabetes mellitus with hyperglycemia, without long-term current use of insulin (CMS/HCC) Take 1 tablet (25 mg) by mouth 1 (one) time each day. 30 tablet 5 10/28/2024 6 Active atorvastatin (Lipitor) 40 MG tablet Take 1 tablet (40 mg) by mouth 1 (one) time each day. 90 tablet 3 11/05/2024 6 Active tirzepatide (Mounjaro) 5 MG/0.5ML solution auto-injector solution pen-injectorInd ications:Type 2 Diabetes Mellitus Inject 0.5 mL (5 mg) under the skin 1 (one) time per week. 4 each 3 11/28/2024 6 Active glipiZIDE (Glucotrol) 10 MG tablet TAKE 1 TABLET BY MOUTH TWO TIMES A DAY BEFORE MEALS 180 tablet 02/04/2025 Active metFORMIN (Glucophage) 1000 MG tabletIndicatio ns:Type 2 diabetes mellitus with hyperglycemia, without long-term current use of insulin (CMS/HCC) TAKE 1 TABLET BY MOUTH TWO TIMES A DAY WITH MEALS 180 tablet 02/04/2025 Active Active Problems Problem Noted Date Diagnosed Date Primary hypertension 07/28/2024 Severe obesity (BMI 35.0-39.9) with comorbidity 04/24/2024 Type 2 diabetes mellitus wit h hyperglycemia, without long-term current use of insulin 04/24/2024 Encounters Date Type Department Care Team Description 02/04/2025 Refill [facility] Endocrinology [facility] [place] [address] Jeni Villanueva, CERTIFIED APPLIANCE SERVICE TECHNICIAN Type 2 diabetes mellitus with hyperglycemia, without long-term current use of insulin ([facility]) from Last 3 Months Social History Tobacco Use Types Packs/Day Years Used Date Smoking Tobacco: Never Smokeless Tobacco: Never Tobacco Cessation:Counseling Given: Not Answered Sex and Gender Information Value Date Recorded Sex Assigned at Not on file Legal Sex Male 7:07 PM EDT Gender Identity Not on file Sexual Orientation Not on file Last Filed Vital Signs Vital Sign Reading Time Taken Comments Blood Pressure 145/78 10/28/2024 3:38 PM EST Pulse 87 10/28/2024 3:38 PM EST Temperature - - Respiratory Rate - - Oxygen Saturation - - Inhaled Oxygen Concentration - - Weight 98.6 kg (217 lb 6 oz) 10/28/2024 3:38 PM EST Height 165.1 cm (5' 5 ) 07/28/2024 12:19 PM EDT Body Mass Index 36.17 07/28/2024 12:19 PM EDT Plan of Treatment Health Maintenance Due Date Last Done Comments [facility]-Depression Screening 1961 [facility]-HIV Screening 1961 [facility]-Hepatitis C Screening 1961 [facility]-/Child/Adol SDOH Screenings 1961 Diabetes: Dental Exam 1971 [facility]- SDOH Screenings 1979 [facility]-Adult SDOH Screenings 1979 [facility]-Pneumococcal Vaccine: 50+ Years (1 of 2 - PCV) 02/01/1980 CT Colonography 2006 Colonoscopy 2006 FIT-DNA 2006 FIT 2006 FOBT 2006 Sigmoidoscopy 2006 [facility]-Colorectal Cancer Screening 2006 [facility]-Zoster Vaccines (1 of 2) 2011 [facility]-Diabetes: Hemoglobin A1C 01/27/2025, 07/28/2024, 04/24/2024 [facility]-DTaP,Tdap,and Td Vaccines (2 - Td or Tdap) 05/30/2032 05/30/2022 [facility]-RSV Vaccine: 60+ Years or (1 - 1-dose 75+ series) 02/01/2036 [id number] Vaccine Completed 07/28/2024, 05/08/2022, 07/27/2021, Additional history exists [facility]-Influenza Vaccine Completed 07/28/2024, 021 [facility]-Obesity Intervention Completed 025, 07/28/2024, 04/24/2024 HPV Vaccines Aged Out No longer eligi ble based on patient's age to complete this topic [facility]-HIB Vaccines Aged Out No longer e ligible based on patient's age to complete this topic [facility]-Hepatitis A Vaccines Aged Out No longer eligible based on patient's age to complete this topic [facility]-IPV Vaccines Aged Out No longer e ligible based on patient's age to complete this topic [facility]-Rotavirus Vaccines Aged Out No lo nger eligible based on patient's age to complete this topic Procedures Procedure Name Priority Date/Time Associated Diagnosis Comments POCT GLYCOSYLATED HEMOGLOBIN (HGB A1C) Routine 10/28/2024 3:46 PM EST Type 2 diabetes mellitus with hyperglycemia, without long-term current use of insulin ([facility]) from Last 3 Months or Most Recently Relevant to Health Maintenance Results * (ABNORMAL) POCT glycosylated hemoglobin (Hb A1C) (10/28/2024 3:46 PM EST) POCT Hemoglobin A1C 7.9 <5.7% Non-Diabe tic % [facility] Kit Lot Number [id number] [facility] Kit Expiration Date 06/07/2026 [facility] Blood Venous blood specimen / Unknown 10/28/2024 3:46 PM EST us Jeni Villanueva CERTIFIED APPLIANCE SERVICE TECHNICIAN POINT OF CARE TEST ENTER /EDIT ORDERABLES Final Result [facility] [address] [place] [address] from Last 3 Months or Most Recently Relevant to Health Maintenance Insurance MARK Care Teams Pocket Creaser Relationship Specialty Start Date End Date Yessenia Horner PA [address] [place] [address] PCP - General 02/18/21
--- NOTE | 2025-03-30 11:38 | PC.NURSE ---
given a blanket no other needs at this time
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
[2025-03-30] MEDS: KETOROLAC 30MG/ML VIAL 15 MG IV (12:11)
[2025-03-30] MEDS: MORPHINE 4MG/ML SYRINGE 4 MG IV (12:11)
[2025-03-30 12:14] LABS: Albumin Level 4.6 g/dl (3.5-5.0); Basophils % 0.5 % (0.1-2.0); Chloride 98 mmol/L (98-107); Eosinophils # 0.2 Kmm3 (0.0-0.4); Eosinophils % 2.1 % (0.1-12.0); Hematocrit 40.9 % (42.0-52.0); Hemoglobin 13.9 g/dL (14.1-18.0); Immature Granulocytes # 0.04 10^3uL; Immature Granulocytes % 0.5 %; Lymphocytes # 1.4 K/mm3 (0.7-4.5); Mean Corpuscular Hemoglobin 32.6 pg (27.0-31.2); Mean Platelet Volume 10.3 fl (7.4-10.4); Monocytes # 0.6 K/mm3 (0.1-1.0); Monocytes % 7.6 % (1.7-9.3); Neutrophils # 5.7 K/mm3 (1.8-7.8); Neutrophils % 71.3 % (37.0-80.0); Nucleated Red Blood Cells # 0 10^3/uL; Nucleated Red Blood Cells % 0 %; Platelet Count 208 K/mm3 (142-424); Red Blood Count 4.26 M/mm3 (4.60-6.20); Red Cell Distribution Width 13.6 % (11.5-17.5); Red Cell Distribution Width-SD 47.9 fL; Sodium 139 mmol/L (136-145); White Blood Count 7.9 K/mm3 (4.8-10.8)
[2025-03-30 12:17] LABS: Alanine Aminotransferase 30 U/L (12-78); Albumin/Globulin Ratio 1.3 (1.1-1.8); Alkaline Phosphatase 95 U/L (38-126); Aspartate Amino Transferase 31 U/L (17-59); Bilirubin,Total 1.1 mg/dl (0.2-1.3); Blood Urea Nitrogen 14 mg/dl (9-20); Calcium 9.3 mg/dl (8.4-10.2); Carbon Dioxide 27 mmol/L (22.0-30.0); Creatinine Clearance Estimated 92 mL/min (50-200); Estimated Glomerular Filt Rate 85 ml/min (>60); GFR (African American) 103 ML/MIN (>60); Globulin 3.5 g/dL (1.3-3.2); Glucose 237 mg/dl (74-100); Total Protein,Serum 8.1 g/dl (6.3-8.2)
[2025-03-30 12:23] LABS: INR 1.04 (0.9-1.1); Prothrombin Time 11.5 seconds (10.1-12.5)
[2025-03-30 12:30] LABS: Troponin I < 0.01 ng/ml (0.00-0.034)
[2025-03-30 12:45] LABS: Microscopic, Urine URINE MICROSCOPIC (MICROSCOPIC)
[2025-03-30] MEDS: SODIUM CHLORIDE 0.9% 10ML SYR (RAD ONLY) 10 ML IV (12:56)
[2025-03-30] MEDS: IOPAMIDOL-370 (76%);100ML BOTTLE 80 ML IV (12:56)
[2025-03-30] MEDS: 0.9 % SODIUM CHLORIDE 50 ML VIAL IV (12:56)
[2025-03-30 12:57] LABS: Appearance,Urine CLEAR (Clear); Bilirubin,Urine Negative (Negative); Blood, Urine Negative (Negative); Color,Urine YELLOW (Yellow); Glucose,Urine (UA) Negative (Negative); Ketones,Urine Negative (Negative); Leukocyte Esterase,Urine Negative (Negative); Nitrate,Urine Negative (Negative); Protein,Urine Negative (Negative); Specific Gravity, Urine 1.015 (1.005-1.030); Urobilinogen,Urine 0.2 EU/dl (0.2)
[2025-03-30 13:12] LABS: Lactic Acid 1.5 mmol/L (0.7-2.1)
== END 2025-03-30 14:08 | disposition home or self-care (01) ==
PROVIDERS: Emergency Provider Student in an Organized Health Care Education/Training Program
DX: R07.89 Other chest pain (principal); R10.811 Right upper quadrant abdominal tenderness; N32.89 Other specified disorders of bladder
CPT/HCPCS: 70450; 71275; 72125; 72128; 72131; 74174; 80053; 81001; 83605; 84484; 85025; 85610; 85730; 96374; 96375; 99285; J1885; J2270; Q9967

== ENCOUNTER 2025-06-11 15:23 | Outpatient (CLI) | payer BC, SELFPAY ==
--- OUTSIDE RECORDS SUMMARY | 2025-06-11 15:25 | XMS_ITS | Clinical Summary ---
Author Organization [facility] [place] Address [address] [id number] Care Team Providers Care Home Care Nurse Name Role Phone Yessenia Horner Primary Care Provider [phone] Allergies Active Allergy Reactions Criticality Noted Date Comments Dulaglutide Other - please docum ent in the comment field Low 10/10/2023 Lisinopril Cough High 10/10/2023 Semaglutide(0.25 Or 0.5mg-Dos) Shortness of breath High 10/10/2023 Medications albuterol 108 (90 Base) MCG/ACT inhaler 11/16/19 24 Active carvedilol (Coreg) 25 MG tablet 1 tablet (25 mg). 10/14/19 24 Active cetirizine (ZyrTEC) 10 MG tablet 1 tablet (10 mg). 10/14/19 24 Active GNP Vitamin D3 Extra Strength 25 MCG (1000 UT) tablet 03/31/20 24 Active fluticasone (Flonase) 50 MCG/ACT nasal spray 07/02/20 23 Active furosemide (Lasix) 40 MG tablet 1 tablet (40 mg). 10/14/19 24 Active levothyroxine (Synthroid, Levoxyl) 25 MCG tablet 1 (one) time each day. 10/14/19 24 Active losartan (Cozaar) 100 MG tablet 1 tablet (100 mg). 10/14/19 24 Active mirtazapine (Remeron) 15 MG tablet 1 tablet (15 mg). 10/14/19 24 Active tamsulosin (Flomax) 0.4 MG 24 hr capsule 1 capsule (0.4 mg). 10/14/19 24 Active ASPIRIN 81 MG chewable tablet Chew 1 tablet (81 mg) 1 (one) time each day. Active pantoprazole (ProtoNix) 20 MG EC tablet 10/21/19 25 Active ranolazine (Ranexa) 500 MG 12 hr tablet 10/09/19 25 Active empagliflozin (Jardiance) 25 MGIndications: Type 2 diabetes mellitus with hyperglycemia, without long-term current use of insulin (CMS/HCC) Take 1 tablet (25 mg) by mouth 1 (one) time each day. 30 tablet 5 10/28/19 25 026 Active atorvastatin (Lipitor) 40 MG tablet Take 1 tablet (40 mg) by mouth 1 (one) time each day. 90 tablet 3 11/05/19 25 026 Active tirzepatide (Mounjaro) 5 MG/0.5ML solution auto-injector solution pen-injectorIn dications:Type 2 Diabetes Mellitus Inject 0.5 mL under the skin 1 time per week. 2 mL 04/01/20 25 026 Active pioglitazone (Actos) 30 MG tabletIndicati ons:Type 2 diabetes mellitus with hyperglycemia, without long-term current use of insulin (CMS/HCC) Take 1 tablet by mouth daily. PATIENT NEEDS TO SCHEDULE AN APPOINTMENT TO RECEIVE FURTHER REFILLS 30 tablet 3 05/05/20 25 Active metFORMIN (Glucophage) 1000 MG tabletIndicati ons:Type 2 diabetes mellitus with hyperglycemia, without long-term current use of insulin (CMS/HCC) TAKE 1 TABLET BY MOUTH TWICE DAILY WITH MEALS 180 tablet 05/27/20 25 Active glipiZIDE (Glucotrol) 10 MG tablet TAKE 1 TABLET BY MOUTH TWICE DAILY BEFORE MEALS 180 tablet 05/27/20 25 Active glipiZIDE (Glucotrol) 10 MG tablet TAKE 1 TABLET BY MOUTH TWO TIMES A DAY BEFORE MEALS 180 tablet 02/05/20 25 025 Discontinued metFORMIN (Glucophage) 1000 MG tabletIndicati ons:Type 2 diabetes mellitus with hyperglycemia, without long-term current use of insulin (CMS/HCC) TAKE 1 TABLET BY MOUTH TWO TIMES A DAY WITH MEALS 180 tablet 02/05/20 25 025 Discontinued Active Problems Problem Noted Date Diagnosed Date Primary hypertension 07/28/2024 Severe obesity (BMI 35.0-39.9) with comorbidity 04/24/2024 Type 2 diabetes mellitus wit h hyperglycemia, without long-term current use of insulin 04/24/2024 Encounters Date Type Department Care Team Description 05/26/2025 Refill [facility] Endocrinology [address] [place] [id number] Jeni Villanueva APRN Type 2 diabetes mellitus with hyperglycemia, without long-term current use of insulin ([facility]) 05/04/2025 Refill [facility] Endocrinology [address] [place] [address] Jeni Villanueva APRN Type 2 diabetes mellitus with hyperglycemia, without long-term current use of insulin ([facility]) 04/01/2025 Refill [facility] Endocrinology [address] [place] [address] Jeni Villanueva APRN from Last 3 Months Social History Tobacco [...] 2006 [facility]-Zoster Vaccines (1 of 2) 2011 [facility]-RSV Vaccine: 60+ Years or (1 - Risk 60-74 years 1-dose series) 2021 [id number] Vaccine (5 - Pfizer risk 2023- season) 2025 07/28/2024, 05/08/2022, 07/27/2021, Additional history exists [facility]-Diabetes: Hemoglobin A1C 01/27/2025, 07/28/2024, 04/24/2024 [facility]-Influenza Vaccine (#1) 2025 07/28/2024, [facility]-DTaP,Tdap,and Td Vaccines (2 - Td or Tdap) 05/30/2032 05/30/2022 [facility]-Obesity Intervention Completed 025, 07/28/2024, 04/24/2024 HPV [...] hyperglycemia, without long-term current use of insulin ([facility]) from Last 3 Months or Most Recently Relevant to Health Maintenance Results * (ABNORMAL) POCT glycosylated hemoglobin (Hb A1C) (10/28/2024 3:46 PM EST) POCT Hemoglobin A1C 7.9 <5.7% Non-Diabe tic % [facility] Kit Lot Number [id number] [facility] Kit Expiration Date 06/07/2026 HEALTH[facility] Blood Venous blood specimen / Unknown 10/28/2024 3:46 PM EST us Jeni Villanueva CUSTOMER SALES DISTRIBUTOR POINT OF CARE TEST ENTER /EDIT ORDERABLES Final Result [facility] [address] [place] [id number] from Last 3 Months or Most Recently Relevant to Health Maintenance Insurance ANTHEM Care Teams Home Care Nurse Relationship Specialty Start Date End Date Yesesnia Horner PA [address] [place] [address] PCP - General 02/18/21
--- OUTSIDE RECORDS SUMMARY | 2025-06-11 15:25 | XMS_ITS | Encounter Summary ---
Author Organization [facility] Address [address] [place] [address] Care Team Providers Care Public Relations Account Executive Name Role Phone Yessenia Horner Primary Care Provider [phone] Reason for Visit * Reason Comments Med Refill Encounter Details Date Type Department Care Team (Late st Contact Info) Description 05/26/2025 Refill [facility] Endocrinology [address] [place] [address] Jeni Villanueva P, STEAM PRESSER [address] [facility] [address] [place] [address] Type 2 diabetes mellitus with [...] on file documented as of this encounter Plan of Treatment Not on file documented as of this encounter Visit Diagnoses Diagnosis Type 2 diabetes mellitus with hyperglycemia, without long-term current use of insulin (CMS/HCC) documented in this encounter Additional Health Concerns Assessment Noted Time A Body Mass Index follow-up plan has been documented for the patient 10/28/2024 4:51 PM EST documented as of this encounter Care Teams Public Relations Account Executive Relationship Specialty Start Date End Date Yessenia Horner PA [address] [place] [address] PCP - General 02/18/21 documented as of this encounter
--- OUTSIDE RECORDS SUMMARY | 2025-06-11 15:25 | XMS_ITS | Encounter Summary ---
Author Organization [facility] Address [address] [place] [address] Care Team Providers Care Corporate Statistical Financial Analyst Name Role Phone Yessenia Horner Primary Care Provider [phone] Reason for Visit * Reason Comments Med Refill Encounter Details Date Type Department Care Team (Late st Contact Info) Description 05/04/2025 Refill [facility] Endocrinology [address] [place] [address] Jeni Villanueva P, CORE WINDING OPERATOR [address] [facility] [address] [place] [address] Type 2 diabetes mellitus with [...] encounter Miscellaneous Notes * Telephone Encounter - Willy Locke - 05/05/2025 9:37 AM EDT Refill request does not meet protocol. Sending to clinic for review. Additional info: Medication not on med list. documented in this encounter Plan of Treatment [...] documented as of this encounter Care Teams Corporate Statistical Financial Analyst Relationship Specialty Start Date End Date Yessenia Horner PA [address] [place], [place] [id number] PCP - General 02/18/21 documented as of this encounter
[2025-06-11 16:16] LABS: Hematocrit 39.7 % (42.0-52.0); Hemoglobin 13.5 g/dL (14.1-18.0); Immature Granulocytes % 0.4 %; Mean Corpuscular HGB Conc 34.0 g/dL (31.8-35.4); Mean Corpuscular Hemoglobin 32.1 pg (27.0-31.2); Mean Corpuscular Volume 94.3 fl (80-94); Nucleated Red Blood Cells % 0 %; Platelet Count 208 K/mm3 (142-424); Red Blood Count 4.21 M/mm3 (4.60-6.20); Red Cell Distribution Width-SD 45.1 fL; White Blood Count 7.7 K/mm3 (4.8-10.8)
[2025-06-11 19:55] LABS: Free T4 (Free Thyroxine) 1.24 ng/dl (0.78-2.19)
[2025-06-11 20:10] LABS: Alanine Aminotransferase 19 U/L (12-78); Albumin Level 4.2 g/dl (3.5-5.0); Alkaline Phosphatase 79 U/L (38-126); Anion Gap 15.8 mEq/L (5-15); Aspartate Amino Transferase 21 U/L (17-59); Bilirubin,Direct 0.3 mg/dl (0.0-0.4); Bilirubin,Indirect 0.4 mg/dL (0.0-0.9); Bilirubin,Total 0.7 mg/dl (0.2-1.3); Bilirubin,Unconjugated 0.4 mg/dL (0.0-1.1); Blood Urea Nitrogen 18 mg/dl (9-20); Calcium 8.8 mg/dl (8.4-10.2); Carbon Dioxide 25 mmol/L (22.0-30.0); Chloride 102 mmol/L (98-107); Cholesterol 136 mg/dl (140-200); Creatinine,Serum 0.70 mg/dl (0.66-1.25); Estimated Glomerular Filt Rate 114 ml/min (>60); GFR (African American) 137 ML/MIN (>60); Glucose 115 mg/dl (74-100); HDL Cholesterol 42 mg/dl (40-60); Magnesium 1.4 mg/dl (1.6-2.3); Potassium 3.8 mmoL/L (3.5-5.1); Sodium 139 mmol/L (136-145); Total Protein,Serum 7.0 g/dl (6.3-8.2); Triglycerides 88 mg/dl (30-150)
[2025-06-11 23:31] LABS: Thyroid Stimulating Hormone 1.49 uIU/mL (0.465-4.68)
== END 2025-06-11 23:59 | disposition home or self-care (01) ==
LOC: LAB 15:23
PROVIDERS: Visit Provider Internal Medicine
DX: I25.10 Atherosclerotic heart disease of native coronary artery without angina pectoris (principal); I11.9 Hypertensive heart disease without heart failure; E78.5 Hyperlipidemia, unspecified
CPT/HCPCS: 36415; 80048; 80061; 80076; 83735; 84439; 84443; 85025

== ENCOUNTER 2025-09-21 13:06 | Outpatient (CLI) | payer BC, SELFPAY ==
[2025-09-22 12:12] LABS: PSA, Free 0.07 ng/mL
== END 2025-09-21 23:59 | disposition home or self-care (01) ==
LOC: LAB 13:07
PROVIDERS: PCP Family Medicine; Visit Provider Urology
DX: Z12.5 Encounter for screening for malignant neoplasm of prostate (principal)
CPT/HCPCS: 36415; 84153; 84154